=== PATIENT | female | born 1955 | race Caucasian/White ===

== ENCOUNTER 2020-05-05 11:53 | Inpatient (IN) ==
[2020-05-05] MEDS ORDERED: 0.9 % SODIUM CHLORIDE 1,000 ML IV ONE ×2 (12:21→13:16)
--- NOTE | 2020-05-05 13:17 | Emergency Department Note ---
HPI General Chief complaint: Blood Pressure Problem Stated complaint: hypotensive Time Seen by Provider: 05/05/20 12:58 Source: EMS Mode of arrival: ambulatory Limitations: no limitations History of Present Illness HPI Narrative: Narrative: Was in the office of Miranda Ramone when blood pressure seem to be quite low in the 90s and then when she stood in the 60s. Patient reports that her blood pressures have been low in the past and she was even given a medicine to help keep them up. Because they went so low she was transported by EMS here. They got an IV shortly before arriving. Her heart rate has been in the 80s. She has had poor p.o. intake for 4 days. She kept drinking some water. She has felt a little bit lightheaded. She has been on some diuretics. She denies diarrhea or constipation or hematochezia. She has a little bit of troubles urinating the past 3 days. No fevers chills or sweats. Related Data Home Medications Medication Instructions Recorded Confirmed naloxone 4 mg/actuation nasal spray 1 spray INTRANASAL Q2-3M PRN 04/02/19 05/05/20 trazodone 50 mg tablet 50 mg PO QHS 04/02/19 05/05/20 triamcinolone acetonide 0.05 % 1 applic TOPICAL BID PRN 04/02/19 05/05/20 topical ointment Previous Rx's Medication Instructions Recorded furosemide 20 mg tablet 20 mg PO QDAY #90 tab 12/14/15 lidocaine HCl 5 ml PO Q6HP PRN #120 ml 06/02/16 pantoprazole 40 mg tablet,delayed 40 mg PO QDAY #90 tab 06/02/19 release spironolactone 25 mg tablet 25 mg PO QDAY #90 tab 06/02/19 lisinopril 40 mg tablet See Rx Instructions .ROUTE 08/17/19 .COMPLEX #90 tablet metformin 500 mg tablet 500 mg PO QDAY #90 tab 08/23/19 carvedilol 25 mg tablet 25 mg PO BID #180 tab 08/30/19 naratriptan 2.5 mg tablet 2.5 mg PO ONCE PRN #15 tab 12/23/19 diclofenac sodium 1 % topical gel 2 g TOPICAL QID #100 g 12/28/19 fluticasone propionate 50 2 spray INTRANASAL QDAY #15.8 ml 09/15/20 mcg/actuation nasal spray,suspension chlorthalidone 25 mg tablet 12.5 mg PO QDAY #45 tab 02/10/20 levothyroxine 25 mcg tablet 25 mcg PO QDAY #90 tab 02/24/20 nortriptyline 10 mg capsule 10 mg PO QDAY #90 cap 02/24/20 rosuvastatin 10 mg tablet See Rx Instructions .ROUTE 02/24/20 .COMPLEX #90 tablet methocarbamol 750 mg tablet 750 mg PO TID PRN #90 tab 03/14/20 hydrocodone 10 mg-acetaminophen 1 tab PO Q6H PRN 30 Days #120 tab 04/10/20 325 mg tablet methadone 10 mg tablet 5 mg PO TID #75 tab 04/10/20 pregabalin 25 mg capsule 25 mg PO BID #60 cap 04/10/20 Allergies Allergy/AdvReac Type Severity Reaction Status Date / Time Penicillins Allergy Unknown Unconscious Verified 05/05/20 10:14 scallops Allergy Unknown Unknown Verified 05/05/20 10:14 Pork Allergy Unknown Diarrhea Uncoded 12/28/19 10:57 Review of Systems ROS ROS Narrative: Narrative: No blurry vision sore throat runny nose chest pain cough shortness of breath abdominal pain rashes lesions headaches. Has had some lightheaded dizziness no anxiety or depression. Has felt fatigued and tired. No heat or cold intolerance easy bleeding or easy bruising. She reports that she was told she was diabetic and placed on Metformin but stopped taking it and did not seem to need it and not sure that she truly is diabetic Does have peripheral neuropathy for which she had been taking gabapentin but it was not doing much and so she went to [facility]. She is currently taking this but she reports that is not doing that much good for her. Is on chronic narcotics including methadone. She reports that this is due to whole body achiness that she relates to chemotherapy. [facility] Narrative Patient History Narrative: Narrative: DENIES: CVA, TIA, anxiety, depression. Medical/Surgical/Family History All Active Problems (Updated 05/05/20 @ 17:48 by Mor Ann DO) Hypotension (Acute) Acute on chronic kidney failure (Acute) Dizziness (Acute) Elevated serum globulin level (Acute) Hypotension (Acute) Elevated liver enzymes (Acute) Hypothyroidism (Chronic) Renal failure (Chronic) Anxiety (Chronic) Headache (Chronic) Hypotension (Chronic) Physical exam (Chronic) Osteopenia (Chronic) Lumbar back pain (Chronic) Peripheral neuropathy (Chronic) Fibromyalgia (Chronic) Allergic rhinitis (Chronic) Dermatitis (Chronic) Cervical radiculopathy (Chronic) Sinusitis (Chronic) Pharyngitis (Chronic) Recurrent sinusitis (Chronic) Chronic pain with drug dependence (Chronic) Fibromyalgia affecting multiple sites (Chronic) Mitral regurgitation (Chronic 07/28/12) Hypertension, essential (Chronic) Hyperlipidemia (Chronic) Dysmetabolic syndrome X (Chronic) Diabetes mellitus, type II (Chronic) Depressive disorder (Chronic) Congestive heart failure (Chronic) Chronic pain syndrome (Chronic) Cardiomyopathy (Chronic) Personal history of breast cancer (Chronic) Dao's esophagus (Chronic) Medical History (Updated 05/05/20 @ 17:48 by Mor Ann DO) Allergic rhinitis (Chronic) Anxiety (Chronic) Dao's esophagus (Chronic) Cardiomyopathy (Chronic) secondary cardiomyopathy, unspecified Cervical radiculopathy (Chronic) Chronic pain syndrome (Chronic) Congestive heart failure (Chronic) Depressive disorder (Chronic) Dermatitis (Chronic) Diabetes mellitus, type II (Chronic) Dysmetabolic syndrome X (Chronic) Fibromyalgia (Chronic) Fracture of ankle, closed (Resolved) 01/2013 Headache (Chronic) Hyperlipidemia (Chronic) Hypertension, essential (Chronic) Hypotension (Chronic) Hypothyroidism (Chronic) Lumbar back pain (Chronic) Mitral regurgitation (Chronic 07/28/12) Mild Nausea (Resolved) POSSIBLY RELATED TO [place] Normal endoscopy (Acute) Osteopenia (Chronic) Peripheral neuropathy (Chronic) Personal history of breast cancer (Chronic) (12/09/13-Dr Carpenter) Pharyngitis (Chronic) Physical exam (Chronic) Recurrent sinusitis (Chronic) Renal failure (Chronic) Shortness of breath (Resolved) Sinusitis (Chronic) Vomiting (Resolved) POSSIBLY RELATED TO [place] Surgical History History of breast surgery (Resolved) LUMPECTOMY History of chemotherapy (Resolved) (12/09/13-Dr Carpenter) History of hysterectomy (Resolved) 1994 Due to fibroids History of radiation therapy (Resolved) (12/09/13-Dr Carpenter) Status post biopsy of skin (Resolved 09/17/13) Left Lower Extremity: Vesicular dermatitis with lichenoid inflammation Family History Malignant neoplasm of ovary Cousin Resulted in Essential hypertension Unknown Nonruptured cerebral aneurysm unknown Cardiac disease Unknown Glaucoma Unknown Social History Smoking Status: Former smoker Alcohol Intake Frequency: does not drink Substance Use: does not use (Including no marijuana) Exam Narrative Narrative: Narrative: General Limitations: no limitations General appearance: Present alert, in no apparent distress, nontoxic and other (Seems quite appropriately animated.) Head Head: Present atraumatic and normocephalic Eye Eye: Present normal appearance, PERRL and EOMI ENT ENT: Present normal oropharynx and mucous membranes moist Neck Neck: Present trachea midline; Absent lymphadenopathy and thyromegaly Chest Chest: Present symmetric chest wall rise Respiratory Respiratory: Present normal lung sounds bilaterally; Absent respiratory distress, rales/crackles, wheezes, stridor, accessory muscle use and prolonged expiratory phase Cardiovascular Cardiovascular: Present regular rate and normal rhythm; Absent systolic murmur and diastolic murmur Adbominal Abdominal: Present soft; Absent distention, tenderness, guarding, rebound, rigidity, organomegaly and mass Extremities Extremities: Absent pedal edema, pretibial edema, calf tenderness and cyanosis Back Back: Absent CVA tenderness (R), CVA tenderness (L) and spinous process tenderness Neurological Neurological: Present alert and oriented X3 Psychiatric Psychiatric: Present normal affect, polite and pleasant; Absent depressed, agitated, anxious and poor eye contact Skin Skin: Present warm (WNL) and dry; Absent cyanosis and pallor Course Vital Signs Vital signs: Vital Signs Temperature 97.8 F 05/05/20 11:56 Pulse Rate 80 05/05/20 11:56 Respiratory Rate 16 05/05/20 11:56 Blood Pressure 80/51 05/05/20 11:56 Pulse Oximetry (%) 95 05/05/20 11:56 Temperature 97.8 F 05/05/20 11:56 Pulse Rate 90 05/05/20 16:31 Respiratory Rate 17 05/05/20 16:46 Blood Pressure 107/61 05/05/20 16:46 Pulse Oximetry (%) 96 05/05/20 16:31 [facility] MDM Narrative Medical decision making narrative: Narrative: 11:59 AM - hypotension with possible history of hypotension. Possible history of a cardiomyopathy suggested with or caused by chemotherapy. She appears to be on 3 diuretics according to her medication list and blood pressure medicine as well yet was quite hypotensive today. Her symptoms are limited and she looks and acts well and is quite interactive even at low blood pressures. We will do multiple labs, EKG, work-up. 3:18 PM - labs include an elevated white count of 17.9. She does have new hemoglobin and hematocrit decreases that have gone from 11.47 days ago to 9.6 and hematocrit from 34.6-28.3. This could be somewhat delutional based on her drinking she says a fair amount of water particularly with her sodium being a little bit low at 131 and potassium 3.1, however she also has the newly elevated creatinine to 3.0 with a BUN of 73 and was 46 and 1.8. Glucose is elevated at 248. Calcium a little low at 8.1 but so are her proteins with an albumin of 2.9 and globulin 4.0. Total protein is normal at 6.9. C-reactive protein significantly elevated at 8.50. Lactic acid 1.6. Rectal exam did not reveal any mass or lesion or abnormalities or redness compatible with blood. Negative Hemoccult. Patient also reports that she lives alone. She does not have family in the area. She does have a boyfriend who does not live too far away. She does have some fox on her right arm that are related to putting fuel in a wood-burning stove which is the only thing she has for heating her home and she is but concerned about this. Blood pressures (systolic) now in the 94-100 range most of the time. Because of her significant elevation of her creatinine, with the above-mentioned hypotension, it seems most reasonable for her to be admitted. Spoke with Dr. Christine elaine who is willing to accept her care. Lab Data Result diagrams: 05/05/20 13:21 05/05/20 13:21 Labs: Lab Results 05/05/20 05/05/20 05/05/20 Range/Units 13:21 13:21 13:21 WBC 17.9 H (4.5-11.0) K/mcL RBC 2.85 L (4.00-5.20) M/mcL Hgb 9.6 L (12.0-15.0) g/dL Hct 28.3 L (36.0-48.0) % MCV 99.3 (80.0-100.0) fL MCH 33.7 (26.0-34.0) pg MCHC 33.9 (31.0-36.0) g/dL RDW 15.2 H (11.5-14.5) % Plt Count 216 (140-440) K/mcL MPV 11.1 H (7.4-10.4) fL Neut % (Auto) 74.4 (38.0-78.0) % Lymph % (Auto) 12.8 L (15.0-49.0) % [place] % (Auto) 12.3 H (1.0-12.0) % Eos % (Auto) 0.1 (0.0-7.0) % Baso % (Auto) 0.4 (0.0-2.0) % Lymph # (Auto) 2.29 (1.50-4.80) K/mcL [place] # (Auto) 2.21 H (0.10-0.90) K/mcL Eos # (Auto) 0.01 (0.00-0.70) K/mcL Baso # (Auto) 0.08 (0.00-0.20) K/mcL Absolute Neutrophils 13.33 H (1.80-8.00) K/mcL Sodium 131 L (133-145) mmol/L Potassium 3.1 L (3.3-5.1) mmol/L Chloride 96 (96-108) mmol/L Carbon Dioxide 17 L (22-30) mmol/L Anion Gap 18.0 H (8.0-16.0) BUN 73 H (8-23) mg/dL Creatinine 3.0 H (0.6-1.1) mg/dL GFR Calculation 15 Glucose 248 H (70-105) mg/dL Calcium 8.1 L (8.6-10.4) mg/dL Total Bilirubin 0.5 (0.1-1.0) mg/dL AST 32 H (<32) U/L ALT 32 (<40) U/L Alkaline Phosphatase 54 (39-117) U/L Troponin T < 0.01 (<0.03) ng/mL C-Reactive Protein 8.50 H (0.03-0.80) mg/dL Total Protein 6.9 (5.9-8.4) gm/dL Albumin 2.9 L (3.2-5.2) gm/dL Globulin 4.0 H (2.2-3.7) gm/dL Albumin/Globulin Ratio 0.7 L (1.0-2.3) Urine Color Urine Appearance (Clear) Urine pH (5.0-9.0) Ur Specific [place] (1.000-1.035) Urine Protein (Negative) mg/dL Urine Glucose (UA) (Negative) mg/dL Urine Ketones (Negative) mg/dL Urine Occult Blood (Negative) mg/dL Urine Nitrate (Negative) Urine Bilirubin (Negative) mg/dL Urine Urobilinogen mg/dL Ur Leukocyte Esterase (Negative) /ug Urine RBC (0-3) /hpf Urine WBC (0-4) /hpf Ur Squamous Epith Cells (0-4) /hpf Urine Bacteria (0) /hpf Hyaline Casts (0-2) /lph Urine Mucus (None) /hpf Ur Culture Indicated? 05/05/20 Range/Units 14:15 WBC (4.5-11.0) K/mcL RBC (4.00-5.20) M/mcL Hgb (12.0-15.0) g/dL Hct (36.0-48.0) % MCV (80.0-100.0) fL MCH (26.0-34.0) pg MCHC (31.0-36.0) g/dL RDW (11.5-14.5) % Plt Count (140-440) K/mcL MPV (7.4-10.4) fL Neut % (Auto) (38.0-78.0) % Lymph % (Auto) (15.0-49.0) % [place] % (Auto) (1.0-12.0) % Eos % (Auto) (0.0-7.0) % Baso % (Auto) (0.0-2.0) % Lymph # (Auto) (1.50-4.80) K/mcL [place] # (Auto) (0.10-0.90) K/mcL Eos # (Auto) (0.00-0.70) K/mcL Baso # (Auto) (0.00-0.20) K/mcL Absolute Neutrophils (1.80-8.00) K/mcL Sodium (133-145) mmol/L Potassium (3.3-5.1) mmol/L Chloride (96-108) mmol/L Carbon Dioxide (22-30) mmol/L Anion Gap (8.0-16.0) BUN (8-23) mg/dL Creatinine (0.6-1.1) mg/dL GFR Calculation Glucose (70-105) mg/dL Calcium (8.6-10.4) mg/dL Total Bilirubin (0.1-1.0) mg/dL AST (<32) U/L ALT (<40) U/L Alkaline Phosphatase (39-117) U/L Troponin T (<0.03) ng/mL C-Reactive Protein (0.03-0.80) mg/dL Total Protein (5.9-8.4) gm/dL Albumin (3.2-5.2) gm/dL Globulin (2.2-3.7) gm/dL Albumin/Globulin Ratio (1.0-2.3) Urine Color Yellow Urine Appearance Hazy A (Clear) Urine pH 5.0 (5.0-9.0) Ur Specific [place] 1.006 (1.000-1.035) Urine Protein 30 A (Negative) mg/dL Urine Glucose (UA) Negative (Negative) mg/dL Urine Ketones Negative (Negative) mg/dL Urine Occult Blood 0.03 (Negative) mg/dL Urine Nitrate Negative (Negative) Urine Bilirubin Negative (Negative) mg/dL Urine Urobilinogen Negative mg/dL Ur Leukocyte Esterase 500 A (Negative) /ug Urine RBC 1 (0-3) /hpf Urine WBC 147 H (0-4) /hpf Ur Squamous Epith Cells 0 (0-4) /hpf Urine Bacteria None (0) /hpf Hyaline Casts 7 H (0-2) /lph Urine Mucus Few A (None) /hpf Ur Culture Indicated? yes Discharge Plan Patient/Caregiver Discharge Instructions Pt seen by MEDICAL INSURANCE BILLER/PA only: No Clinical Impression: Hypotension, Acute on chronic kidney failure Patient Disposition: Xfer As Outpt/Obs ([facility]) Follow up with: Mey Pack ARNP [Primary Care Provider] - Prescriptions: No Action fluticasone propionate [Flonase Allergy Relief] 50 mcg/actuation spray,suspension 2 spray INTRANASAL QDAY Qty: 15.8 RF: 5 diclofenac sodium [Voltaren] 1 % gel 2 g TOPICAL QID Qty: 100 RF: 5 pregabalin [Lyrica] 25 mg capsule 25 mg PO BID Qty: 60 RF: 2 hydrocodone-acetaminophen 10-325 mg tablet 1 tab PO Q6H PRN (Reason: pain) 30 Days Qty: 120 RF: 0 methadone 10 mg tablet 5 mg PO TID Qty: 75 RF: 0 spironolactone 25 mg tablet 25 mg PO QDAY Qty: 90 RF: 4 pantoprazole 40 mg tablet,delayed release (DR/EC) 40 mg PO QDAY Qty: 90 RF: 4 lisinopril 40 mg tablet See Rx Instructions .ROUTE .COMPLEX Qty: 90 RF: 4 metformin 500 mg tablet 500 mg PO QDAY Qty: 90 RF: 3 carvedilol 25 mg tablet 25 mg PO BID Qty: 180 RF: 2 naratriptan [Amerge] 2.5 mg tablet 2.5 mg PO ONCE PRN (Reason: migraine headache) Qty: 15 RF: 2 chlorthalidone 25 mg tablet 12.5 mg PO QDAY Qty: 45 RF: 0 levothyroxine 25 mcg tablet 25 mcg PO QDAY Qty: 90 RF: 0 nortriptyline 10 mg capsule 10 mg PO QDAY Qty: 90 RF: 2 rosuvastatin 10 mg tablet See Rx Instructions .ROUTE .COMPLEX Qty: 90 RF: 2 methocarbamol 750 mg tablet 750 mg PO TID PRN (Reason: muscle spasm) Qty: 90 RF: 2 furosemide 20 mg tablet 20 mg PO QDAY Qty: 90 RF: 3 trazodone 50 mg tablet 50 mg PO QHS RF: 0 triamcinolone acetonide 0.05 % ointment 1 applic TOPICAL BID PRN (Reason: Rash) RF: 0 Narcan 4 mg/actuation spray,non-aerosol 1 spray INTRANASAL Q2-3M PRN (Reason: overmedicated) RF: 0 lidocaine HCl 1 ML solution 5 ml PO Q6HP PRN (Reason: Pain) Qty: 120 RF: 0
[2020-05-05 14:33] LABS: Basophils # (Auto) 0.08 K/mcL (0.00-0.20); Basophils % (Auto) 0.4 % (0.0-2.0); Eosinophils # (Auto) 0.01 K/mcL (0.00-0.70); Eosinophils % (Auto) 0.1 % (0.0-7.0); Hematocrit 28.3 % (36.0-48.0); Hemoglobin 9.6 g/dL (12.0-15.0); Lymphocytes # (Auto) 2.29 K/mcL (1.50-4.80); Lymphocytes % (Auto) 12.8 % (15.0-49.0); Mean Cell Volume 99.3 fL (80.0-100.0); Mean Corpuscular HGB Conc 33.9 g/dL (31.0-36.0); Mean Platelet Volume 11.1 fL (7.4-10.4); Monocytes # (Auto) 2.21 K/mcL (0.10-0.90); Monocytes % (Auto) 12.3 % (1.0-12.0); Neutrophils % (Auto) 74.4 % (38.0-78.0); Platelet Count 216 K/mcL (140-440); RBC 2.85 M/mcL (4.00-5.20); Red Cell Distribution Width 15.2 % (11.5-14.5); WBC 17.9 K/mcL (4.5-11.0)
[2020-05-05 15:02] LABS: ALT/SGPT 32 U/L (<40); AST/SGOT 32 U/L (<32); Albumin 2.9 gm/dL (3.2-5.2); Albumin/Globulin Ratio 0.7 (1.0-2.3); Alkaline Phosphatase 54 U/L (39-117); Bilirubin,Total 0.5 mg/dL (0.1-1.0); Blood Urea Nitrogen 73 mg/dL (8-23); Calcium 8.1 mg/dL (8.6-10.4); Carbon Dioxide 17 mmol/L (22-30); Chloride 96 mmol/L (96-108); Glomerular Filtration Rate 15; Glucose 248 mg/dL (70-105)
[2020-05-05 15:54] LABS: Appearance,Urine HAZY (Clear); Bilirubin,Urine Negative (Negative); Color,Urine YELLOW; Culture Indicated,Urine yes; Glucose,Urine (UA) Negative (Negative); Ketones,Urine Negative (Negative); Leukocyte Esterase,Urine 500 /ug (Negative); Mucus,Urine FEW /hpf; Nitrate,Urine Negative (Negative); Protein,Urine 30 mg/dL (Negative); Specific Gravity,Urine 1.006 (1.000-1.035); Urine Blood 0.03 mg/dL (Negative); Urine Hyaline Cast 7 /lph (0-2); Urine RBC 1 /hpf (0-3); Urine Squamous Epithelial Cell 0 /hpf (0-4); Urine WBC 147 /hpf (0-4); Urobilinogen,Urine Negative
--- NOTE | 2020-05-05 17:07 | Internal Med History&Physical ---
HPI History of Present Illness Patient information: Note initiated : 05/05/20 at 4:59 pm Service Date, if different from initiated Date: [] Patient: Dylan Martin a 65 y/o F admitted on for Hypotensive. Chief Complaint: [] History of present illness: Ms. Martin is a 65 year old F Presents the ED from her primary care's office for hypotension and lightheadedness. Patient states about 4 days ago she had a decreased appetite and has hardly been eating anything and drinking mostly just water. She is on several blood pressure medications and diuretics. Not entirely sure she is taking these but what is listed on home medications Coreg lisinopril chlorthalidone furosemide and spironolactone. She complains of lightheadedness. She did have some nausea as well. No diarrhea. patient denies any recent illnesses. He denies any fevers or chills. Denies any coughing or shortness of breath. Her urine is dark and was malodorous but did not necessarily have any distance comfort upon urination. Found be hypotensive in the office and sent into the ED. Where she was also was found to be mildly hypotensive. With an elevated creatinine. Urinalysis possibly consistent with UTI. Did have a leukocytosis but was afebrile. chest x-ray pending Review of Systems: Pertinent positives as above denies headache/fever/vomiting/chills/chest or abdominal pain/cough/dyspnea/diarrhea. Remaining 10 point review of system reviewed negative PFSH PFSH All Active Problems (Updated 05/05/20 @ 10:46 by TOMMY Desai) Dizziness (Acute) Elevated serum globulin level (Acute) Hypotension (Acute) Elevated liver enzymes (Acute) Hypothyroidism (Chronic) Renal failure (Chronic) Anxiety (Chronic) Headache (Chronic) Hypotension (Chronic) Physical exam (Chronic) Osteopenia (Chronic) Lumbar back pain (Chronic) Peripheral neuropathy (Chronic) Fibromyalgia (Chronic) Allergic rhinitis (Chronic) Dermatitis (Chronic) Cervical radiculopathy (Chronic) Sinusitis (Chronic) Pharyngitis (Chronic) Recurrent sinusitis (Chronic) Chronic pain with drug dependence (Chronic) Fibromyalgia affecting multiple sites (Chronic) Mitral regurgitation (Chronic 07/28/12) Hypertension, essential (Chronic) Hyperlipidemia (Chronic) Dysmetabolic syndrome X (Chronic) Diabetes mellitus, type II (Chronic) Depressive disorder (Chronic) Congestive heart failure (Chronic) Chronic pain syndrome (Chronic) Cardiomyopathy (Chronic) Personal history of breast cancer (Chronic) Dao's esophagus (Chronic) Medical History (Updated 05/05/20 @ 10:46 by TOMMY Desai) Allergic rhinitis (Chronic) Anxiety (Chronic) Dao's esophagus (Chronic) Cardiomyopathy (Chronic) secondary cardiomyopathy, unspecified Cervical radiculopathy (Chronic) Chronic pain syndrome (Chronic) Congestive heart failure (Chronic) Depressive disorder (Chronic) Dermatitis (Chronic) Diabetes mellitus, type II (Chronic) Dysmetabolic syndrome X (Chronic) Fibromyalgia (Chronic) Fracture of ankle, closed (Resolved) 01/2013 Headache (Chronic) Hyperlipidemia (Chronic) Hypertension, essential (Chronic) Hypotension (Chronic) Hypothyroidism (Chronic) Lumbar back pain (Chronic) Mitral regurgitation (Chronic 07/28/12) Mild Nausea (Resolved) POSSIBLY RELATED TO [place] Normal endoscopy (Acute) Osteopenia (Chronic) Peripheral neuropathy (Chronic) Personal history of breast cancer (Chronic) (12/09/13-Dr Carpenter) Pharyngitis (Chronic) Physical exam (Chronic) Recurrent sinusitis (Chronic) Renal failure (Chronic) Shortness of breath (Resolved) Sinusitis (Chronic) Vomiting (Resolved) POSSIBLY RELATED TO [place] Surgical History History of breast surgery (Resolved) LUMPECTOMY History of chemotherapy (Resolved) (12/09/13-Dr Carpenter) History of hysterectomy (Resolved) 1994 Due to fibroids History of radiation therapy (Resolved) (12/09/13-Dr Carpenter) Status post biopsy of skin (Resolved 09/17/13) Left Lower Extremity: Vesicular dermatitis with lichenoid inflammation Family History unknown Nonruptured cerebral aneurysm Unknown Cardiac disease Essential hypertension Glaucoma Cousin Malignant neoplasm of ovary Resulted in Social History marital status: single occupational status: retired and disabled smoking status: Former smoker alcohol intake frequency: a few times a week substance use type: does not use MEDS/ALLERGIES Home Medications and Allergies Home Medications Medication Instructions Recorded Confirmed Type furosemide 20 mg tablet 20 mg PO QDAY #90 tab 12/14/15 05/05/20 Rx lidocaine HCl 5 ml PO Q6HP PRN #120 ml 06/02/16 05/05/20 Rx naloxone 4 mg/actuation nasal spray 1 spray INTRANASAL Q2-3M PRN 04/02/19 05/05/20 History trazodone 50 mg tablet 50 mg PO QHS 04/02/19 05/05/20 History triamcinolone acetonide 0.05 % 1 applic TOPICAL BID PRN 04/02/19 05/05/20 History topical ointment pantoprazole 40 mg tablet,delayed 40 mg PO QDAY #90 tab 06/02/19 05/05/20 Rx release spironolactone 25 mg tablet 25 mg PO QDAY #90 tab 06/02/19 05/05/20 Rx lisinopril 40 mg tablet See Rx Instructions .ROUTE 08/17/19 05/05/20 Rx .COMPLEX #90 tablet metformin 500 mg tablet 500 mg PO QDAY #90 tab 08/23/19 05/05/20 Rx carvedilol 25 mg tablet 25 mg PO BID #180 tab 08/30/19 05/05/20 Rx naratriptan 2.5 mg tablet 2.5 mg PO ONCE PRN #15 tab 12/23/19 05/05/20 Rx diclofenac sodium 1 % topical gel 2 g TOPICAL QID #100 g 12/28/19 05/05/20 Rx fluticasone propionate 50 2 spray INTRANASAL QDAY #15.8 ml 12/28/19 05/05/20 Rx mcg/actuation nasal spray,suspension chlorthalidone 25 mg tablet 12.5 mg PO QDAY #45 tab 02/10/20 05/05/20 Rx levothyroxine 25 mcg tablet 25 mcg PO QDAY #90 tab 02/24/20 05/05/20 Rx nortriptyline 10 mg capsule 10 mg PO QDAY #90 cap 02/24/20 05/05/20 Rx rosuvastatin 10 mg tablet See Rx Instructions .ROUTE 02/24/20 05/05/20 Rx .COMPLEX #90 tablet methocarbamol 750 mg tablet 750 mg PO TID PRN #90 tab 03/14/20 05/05/20 Rx hydrocodone 10 mg-acetaminophen 1 tab PO Q6H PRN 30 Days #120 tab 04/10/20 05/05/20 Rx 325 mg tablet methadone 10 mg tablet 5 mg PO TID #75 tab 04/10/20 05/05/20 Rx pregabalin 25 mg capsule 25 mg PO BID #60 cap 04/10/20 05/05/20 Rx Allergies Allergy/AdvReac Type Severity Reaction Status Date / Time Penicillins Allergy Unknown Unconscious Verified 05/05/20 10:14 scallops Allergy Unknown Unknown Verified 05/05/20 10:14 Pork Allergy Unknown Diarrhea Uncoded 12/28/19 10:57 EXAM Constitutional Vitals: Temp Pulse Resp BP Pulse Ox 97.8 F 90 15 109/70 99 05/05/20 11:56 05/05/20 16:30 05/05/20 16:30 05/05/20 16:30 05/05/20 16:30 Exam: General: Alert, Awake, No acute Distress, obese Eyes/N/T: EOMI, PERRL, dry MM Head/Neck: neck supple, normocephalic atraumatic CV: RRR, No murmurs, normal s1/s2 Pulm: Clear b/l, no wheezing/rhonchi/rales Abd: soft, nontender, +BS x4 Ext: no clubbing/cyanosis/edema Neuro: Alert, no focal deficits, moves all extremities, CN 2-12 grossly intact, symmetrical strength b/l upper/lower, sensations intact b/l upper/lower Skin: warm/dry DATA Data Completed and Pending Labs: Labs from last 24 hours 05/05/20 05/05/20 05/05/20 14:15 13:21 13:21 WBC RBC Hgb Hct MCV MCH MCHC RDW Plt Count MPV Neut % (Auto) Lymph % (Auto) [place] % (Auto) Eos % (Auto) Baso % (Auto) Lymph # (Auto) [place] # (Auto) Eos # (Auto) Baso # (Auto) Absolute Neutrophils Sodium 131 L Potassium 3.1 L Chloride 96 Carbon Dioxide 17 L Anion Gap 18.0 H BUN 73 H Creatinine 3.0 H GFR Calculation 15 Glucose 248 H Calcium 8.1 L Total Bilirubin 0.5 AST 32 H ALT 32 Alkaline Phosphatase 54 Troponin T < 0.01 C-Reactive Protein 8.50 H Total Protein 6.9 Albumin 2.9 L Globulin 4.0 H Albumin/Globulin Ratio 0.7 L Urine Color Yellow Urine Appearance Hazy A Urine pH 5.0 Ur Specific [place] 1.006 Urine Protein 30 A Urine Glucose (UA) Negative Urine Ketones Negative Urine Occult Blood 0.03 Urine Nitrate Negative Urine Bilirubin Negative Urine Urobilinogen Negative Ur Leukocyte Esterase 500 A Urine RBC 1 Urine WBC 147 H Ur Squamous Epith Cells 0 Urine Bacteria None Hyaline Casts 7 H Urine Mucus Few A Ur Culture Indicated? yes 05/05/20 13:21 WBC 17.9 H RBC 2.85 L Hgb 9.6 L Hct 28.3 L MCV 99.3 MCH 33.7 MCHC 33.9 RDW 15.2 H Plt Count 216 MPV 11.1 H Neut % (Auto) 74.4 Lymph % (Auto) 12.8 L [place] % (Auto) 12.3 H Eos % (Auto) 0.1 Baso % (Auto) 0.4 Lymph # (Auto) 2.29 [place] # (Auto) 2.21 H Eos # (Auto) 0.01 Baso # (Auto) 0.08 Absolute Neutrophils 13.33 H Sodium Potassium Chloride Carbon Dioxide Anion Gap BUN Creatinine GFR Calculation Glucose Calcium Total Bilirubin AST ALT Alkaline Phosphatase Troponin T C-Reactive Protein Total Protein Albumin Globulin Albumin/Globulin Ratio Urine Color Urine Appearance Urine pH Ur Specific [place] Urine Protein Urine Glucose (UA) Urine Ketones Urine Occult Blood Urine Nitrate Urine Bilirubin Urine Urobilinogen Ur Leukocyte Esterase Urine RBC Urine WBC Ur Squamous Epith Cells Urine Bacteria Hyaline Casts Urine Mucus Ur Culture Indicated? A/P Narrative A/P Narrative: A: *LINA on CKD III: possible ATN from hypotension *Hypotension: 2/2 medications and poor oral intake *AG Met Acidosis: 2/2 above *Hyponatremia/hypokalemia: Secondary to volume depletion / diuretic's *Volume depletion: *Leukocytosis: Reactive versus infectious possibly source *?UTI: *h/o Grade I diastolic cardiac dysfunction with EF 47% 2018: *DM: *HTN/HLD: *Pain: On methadone and [place] *Hypothyroidism: *GERD: * P: -IVF -monitor UOP, i/o's -Monitor electrolytes and replace as needed -Chest x-ray pending; Rocephin pending UC -Hold home metformin, SSI -Hold BP meds and diuretics - - -PT /OT -ppx: Heparin/home ppi full code Time Spent With Patient Time: Total time spent is greater than 50% in coordination of care (as documented) at patient's floor/unit and/or counseling patient:
--- NOTE | 2020-05-05 17:18 | XRay Report ---
HISTORY: Leukocytosis, hypotension, former smoker FINDINGS: Right diaphragm is mildly elevated. This is of undetermined etiology. The lungs are clear. The heart size and pulmonary vasculature are normal. There are multiple surgical clips along the right lateral chest wall and in the right breast. Comparison with the prior exam from 05/29/13 shows the elevation of the right diaphragm has increased but was present at that time. IMPRESSION: No acute abnormality Interpreted and Authenticated by: Conor Meade 05/05/20
[2020-05-05] MEDS ORDERED: 0.9 % SODIUM CHLORIDE 1,000 ML IV SCH (18:35)
[2020-05-05] MEDS ORDERED: cefTRIAXone 1 GM in DEXTROSE 5% IN WATER 50 ML IV SCH (18:35)
[2020-05-05] MEDS ORDERED: IPRATROPIUM/ALBUTEROL 3 ML AMPUL.NEB NEB PRN (18:35)
[2020-05-05] MEDS ORDERED: DEXTROSE 31 GM ORAL.SUSP PO PRN (18:35)
[2020-05-05] MEDS ORDERED: POTASSIUM CHLORIDE 40 MEQ in DEXTROSE 5% IN WATER 500 ML IV PRN (18:35)
[2020-05-05] MEDS ORDERED: ONDANSETRON 4 MG/2 ML VIAL IV PRN (18:35)
[2020-05-05] MEDS ORDERED: DEXTROSE 50% 50 ML VIAL IV PRN (18:35)
[2020-05-05] MEDS ORDERED: SENNOSIDES 1 TABLET PO PRN (18:35)
[2020-05-05] MEDS ORDERED: NALOXONE INTRANASAL PRN (18:35)
[2020-05-05] MEDS ORDERED: POLYETHYLENE GLYCOL 3350 17 GM PACKET PO PRN (18:35)
[2020-05-05] MEDS ORDERED: METHOCARBAMOL 750 MG TABLET PO PRN (18:35)
[2020-05-05] MEDS ORDERED: POTASSIUM CHLORIDE 20 MEQ TABLET PO PRN (18:35)
[2020-05-05] MEDS ORDERED: LIDOCAINE VISCOUS 2% 1 ML SOLUTION PO PRN (18:35)
[2020-05-05] MEDS ORDERED: AMERGE 2.5 MG PO PRN (19:17)
[2020-05-05] MEDS: 0.9 % SODIUM CHLORIDE 10 ML SYRINGE IV SCH (19:40)
[2020-05-05] MEDS ORDERED: cefTRIAXone 1 GM VIAL ONE (20:13)
[2020-05-05] MEDS: METHADONE 5 MG TABLET PO SCH (20:31)
[2020-05-05] MEDS: DICLOFENAC TOPICAL GEL TOPICAL SCH (20:32)
[2020-05-05] MEDS: traZODone HCL 50 MG TABLET PO SCH (20:32)
[2020-05-05] MEDS: DOCUSATE SODIUM 100 MG CAPSULE PO SCH (20:32)
[2020-05-05] MEDS: PREGABALIN 25 MG CAPSULE PO SCH (20:32)
[2020-05-05] MEDS: HEPARIN 5,000 UNIT/ML VIAL SQ SCH (20:33)
[2020-05-05 20:47] LABS: Lymphocytes % 11 % (15-49); Monocytes % (Manual) 11 % (1-12); Platelet Estimate NORMAL (Normal); RBC Morphology NORMAL (Normal); Segmented Neutrophils % 78 % (38-78)
[2020-05-05] MEDS: INSULIN LISPRO 1 UNIT/0.01 ML UNIT SQ SCH (21:32)
[2020-05-06] MEDS: POTASSIUM CHLORIDE 20 MEQ TABLET PO PRN (01:06)
[2020-05-06] MEDS: 0.9 % SODIUM CHLORIDE 10 ML SYRINGE IV SCH ×3 (04:30→20:41)
[2020-05-06 07:20] LABS: Basophils % (Auto) 0.5 % (0.0-2.0); Eosinophils # (Auto) 0.03 K/mcL (0.00-0.70); Eosinophils % (Auto) 0.2 % (0.0-7.0); Hematocrit 29.4 % (36.0-48.0); Hemoglobin 9.8 g/dL (12.0-15.0); Lymphocytes % (Auto) 16.4 % (15.0-49.0); Mean Cell Volume 99.7 fL (80.0-100.0); Mean Corpuscular HGB Conc 33.3 g/dL (31.0-36.0); Mean Platelet Volume 10.8 fL (7.4-10.4); Monocytes % (Auto) 14.2 % (1.0-12.0); Neutrophils % (Auto) 68.7 % (38.0-78.0); Platelet Count 271 K/mcL (140-440); RBC 2.95 M/mcL (4.00-5.20); Red Cell Distribution Width 15.4 % (11.5-14.5); WBC 18.3 K/mcL (4.5-11.0)
[2020-05-06 07:31] LABS: ALT/SGPT 28 U/L (<40); AST/SGOT 28 U/L (<32); Albumin/Globulin Ratio 0.8 (1.0-2.3); Alkaline Phosphatase 57 U/L (39-117); Bilirubin,Direct 0.2 mg/dL (<0.3); Bilirubin,Total 0.5 mg/dL (0.1-1.0); Blood Urea Nitrogen 63 mg/dL (8-23); Calcium 8.4 mg/dL (8.6-10.4); Carbon Dioxide 17 mmol/L (22-30); Chloride 99 mmol/L (96-108); Globulin 3.9 gm/dL (2.2-3.7); Glomerular Filtration Rate 20; Glucose 150 mg/dL (70-105); Lactate Dehydrogenase 166 U/L (135-225); Phosphorous 3.6 mg/dL (2.5-4.5); Triglycerides 93 mg/dL (<150); Uric Acid 7.2 mg/dL (2.5-8.0)
[2020-05-06] MEDS: INSULIN LISPRO 1 UNIT/0.01 ML UNIT SQ SCH ×4 (08:45→20:48)
[2020-05-06] MEDS ORDERED: MAGNESIUM SULFATE 2 GM/50 ML BAG IV ONE (08:49)
--- NOTE | 2020-05-06 08:53 | Internal Med Progress Note ---
SUBJECTIVE Subjective Patient information: Note initiated : 05/06/20 at 8:46 am Service Date, if different from initiated Date: [] Patient: Dylan Martin a 65 y/o F admitted on 05/05/20 for Hypotensive. Chief Complaint: [] Interval history: History of present illness: Ms. Martin is a 65 year old F Presents the ED from her primary care's office for hypotension and lightheadedness. Patient states about 4 days ago she had a decreased appetite and has hardly been eating anything and drinking mostly just water. She is on several blood pressure medications and diuretics. Not entirely sure she is taking these but what is listed on home medications Coreg lisinopril chlorthalidone furosemide and spironolactone. She complains of lightheadedness. She did have some nausea as well. No diarrhea. patient denies any recent illnesses. He denies any fevers or chills. Denies any coughing or shortness of breath. Her urine is dark and was malodorous but did not necessarily have any distance comfort upon urination. Found be hypotensive in the office and sent into the ED. Where she was also was found to be mildly hypotensive. With an elevated creatinine. Urinalysis possibly consistent with UTI. Did have a leukocytosis but was afebrile. chest x-ray pending 05/06 Feeling a little better today. No overnight event or new complaints. Blood pr essure stable although low normal. Persistent leukocytosis, waiting cultures. Creatinine improved. Low magnesium. Review of Systems: Occasional headache. Denies fever/chills/nausea/vomiting/chest or abdominal pain/cough/dyspnea/diarrhea. Otherwise see above. Constitutional Vitals: Vital Signs Temp Pulse Resp BP Pulse Ox 98.2 F 98 H 16 105/61 97 05/06/20 07:39 05/06/20 07:39 05/06/20 07:39 05/06/20 07:39 05/06/20 07:39 Period Temp Pulse Resp BP Sys/Loza Pulse Ox Last 24 Hr 97.8 F-98.5 F 31-101 11-18 80-117/51-77 94-100 Intake and Output 05/05/20 05/06/20 05/06/20 21:59 05:59 13:59 Intake Total 850 Output Total 650 150 Balance 200 -150 Weight 80.286 kg Intake & Output: Intake & Output 05/05/20 05/06/20 05/06/20 21:59 05:59 13:59 Intake Total 850 Output Total 650 150 Balance 200 -150 Weight 80.286 kg Intake: Oral 850 Output: Void Amount 650 150 Other: Urine Appearance Clear Clear Urine Color Bright Yellow Bright Yellow Urine Odor Normal # Voids 1 Exam: General: Alert, Awake, No acute Distress, obese Eyes/N/T: EOMI, Head/Neck: neck supple, CV: RRR, No murmurs, Pulm: Clear b/l, no wheezing/rhonchi/rales Abd: soft, nontender, +BS x4 Ext: no clubbing/cyanosis/edema Neuro: Alert, no focal deficits, moves all extremities, Skin: warm/dry OBJ DATA Labs CBC & Chem 7: 05/06/20 05:13 05/06/20 05:13 Labs: Abnormal Lab Results 05/06/20 05/06/20 05/06/20 05:13 05:13 05:13 WBC 18.3 H RBC 2.95 L Hgb 9.8 L Hct 29.4 L RDW 15.4 H MPV 10.8 H Lymph % (Auto) [place] % (Auto) 14.2 H [place] # (Auto) 2.60 H Lymphocytes % Absolute Neutrophils 12.56 H Sodium Potassium Carbon Dioxide 17 L Anion Gap 19.0 H BUN 63 H Creatinine 2.4 H Glucose 150 H Calcium 8.4 L Magnesium 1.1 L GGT 68 H AST C-Reactive Protein 11.60 H Albumin 3.0 L Globulin 3.9 H Albumin/Globulin Ratio 0.8 L Procalcitonin 1.07 H Urine Appearance Urine Protein Ur Leukocyte Esterase Urine WBC Hyaline Casts Urine Mucus 05/05/20 05/05/20 05/05/20 14:15 13:21 13:21 WBC RBC Hgb Hct RDW MPV Lymph % (Auto) [place] % (Auto) [place] # (Auto) Lymphocytes % 11 L Absolute Neutrophils Sodium Potassium Carbon Dioxide Anion Gap BUN Creatinine Glucose Calcium Magnesium GGT AST C-Reactive Protein Albumin Globulin Albumin/Globulin Ratio Procalcitonin 1.33 H Urine Appearance Hazy A Urine Protein 30 A Ur Leukocyte Esterase 500 A Urine WBC 147 H Hyaline Casts 7 H Urine Mucus Few A 05/05/20 05/05/20 13:21 13:21 WBC 17.9 H RBC 2.85 L Hgb 9.6 L Hct 28.3 L RDW 15.2 H MPV 11.1 H Lymph % (Auto) 12.8 L [place] % (Auto) 12.3 H [place] # (Auto) 2.21 H Lymphocytes % Absolute Neutrophils 13.33 H Sodium 131 L Potassium 3.1 L Carbon Dioxide 17 L Anion Gap 18.0 H BUN 73 H Creatinine 3.0 H Glucose 248 H Calcium 8.1 L Magnesium GGT AST 32 H C-Reactive Protein 8.50 H Albumin 2.9 L Globulin 4.0 H Albumin/Globulin Ratio 0.7 L Procalcitonin Urine Appearance Urine Protein Ur Leukocyte Esterase Urine WBC Hyaline Casts Urine Mucus Meds: Medications Acetaminophen (Tylenol) 650 mg PO Q6HP PRN PRN Reason: PAIN/FEVER > 101 Albuterol/Ipratropium (Duoneb) 3 ml NEB Q4HP PRN PRN Reason: Shortness Of Breath Atorvastatin Calcium (Lipitor) 20 mg PO DAILY [facility] Ceftriaxone Sodium (Rocephin) 1 gm IV DAILY [facility] Dextrose (Dextrose 50%) 0 ml IV UD PRN PRN Reason: Hypoglycemia Diagnostic Test (Pha) (Accu-Chek) 1 each FS ACHS [facility] Last Admin: 05/06/20 07:16 Dose: 1 each Documented by: Docusate Sodium (Colace) 100 mg PO BID [facility] Last Admin: 05/05/20 20:32 Dose: Not Given Documented by: Fluticasone Propionate (Flonase) 2 spray NS QDAY [facility] Glucose (Insta-Glucose) 15 gm PO PRN PRN PRN Reason: Hypoglycemia Heparin Sodium (Porcine) (Heparin) 5,000 unit SQ Q12 [facility] Last Admin: 05/05/20 20:33 Dose: 5,000 unit Documented by: Potassium Chloride 40 meq/ (Dextrose) 520 mls @ 130 mls/hr IV UD PRN PRN Reason: Potassium < 3 Magnesium Sulfate (Magnesium Sulfate) 2 gm in 50 mls @ 50 mls/hr IV UD PRN PRN Reason: Magnesium </= 1.6 Insulin Human Lispro (Humalog) 0 unit SQ ACHS [facility]; Protocol Last Admin: 05/05/20 21:32 Dose: 4 units Documented by: Levothyroxine Sodium (Synthroid) 25 mcg PO ACB [facility] Lidocaine HCl (Lidocaine Viscous 2%) 5 ml PO Q6HP PRN PRN Reason: Pain Methadone HCl (Dolophine) 5 mg PO TID [facility] Last Admin: 05/05/20 20:31 Dose: 5 mg Documented by: Methocarbamol (Robaxin) 750 mg PO TIDP PRN PRN Reason: muscle spasm Nortriptyline HCl (Pamelor) 10 mg PO QDAY [facility] Ondansetron HCl (Zofran) 4 mg IV Q4HP PRN PRN Reason: Nausea And Vomiting Pantoprazole Sodium (Protonix) 40 mg PO ACB [facility] Diclofenac Topical (Gel) 1 dose TOPICAL QID [facility] Last Admin: 05/05/20 20:32 Dose: Not Given Documented by: Amerge 2.5 Mg Tablet 1 dose PO DAILYP PRN PRN Reason: migraine headache Polyethylene Glycol (Miralax) 17 gm PO DAILYP PRN PRN Reason: Constipation Potassium Chloride (Kdur) 40 meq PO UD PRN PRN Reason: Potssium is 3-3.5 Last Admin: 05/06/20 01:06 Dose: 40 meq Documented by: Potassium Chloride (Kdur) 40 meq PO UD PRN PRN Reason: Potassium < 3 Pregabalin (Lyrica) 25 mg PO BID [facility] Last Admin: 05/05/20 20:32 Dose: 25 mg Documented by: Senna (Senokot) 2 tab PO DAILYP PRN PRN Reason: Constipation Sodium Chloride (Saline Flush) 10 ml IV Q8 [facility] Last Admin: 05/06/20 04:30 Dose: Not Given Documented by: Trazodone HCl (Desyrel) 50 mg PO QHS [facility] Last Admin: 05/05/20 20:32 Dose: 50 mg Documented by: A/P Narrative A/P Narrative: A: *LINA on CKD III: 2/2 meds/hypotension -improving *Hypotension: 2/2 medications (coreg/acei/?lasix/aldactone/chlorthalidone) and poor oral intake -stable *AG Met Acidosis: 2/2 above, resolved *Hyponatremia/hypokalemia/hypomag: Secondary to volume depletion / diuretic's -improved *Volume depletion: improved *Leukocytosis: Reactive versus infectious possibly source *UTI: *h/o Grade I diastolic cardiac dysfunction with EF 47% 2018: *DM: *HTN/HLD: *Pain: On methadone and [place] *Hypothyroidism: *GERD: * P: -IVF finish -monitor UOP, i/o's -Monitor electrolytes and replace as needed -Rocephin, pending UC -Hold home metformin, SSI -Hold BP meds and diuretics -clarify home meds - -PT /OT -ppx: Heparin/home ppi full code Time Spent With Patient Time: Total time spent is greater than 50% in coordination of care (as documented) at patient's floor/unit and/or counseling patient: QUALITY VTE Deep Vein Thrombosis/Pulmonary Embolism Present on Admission: No
[2020-05-06] MEDS: LEVOTHYROXINE 25 MCG TABLET PO SCH (09:02)
[2020-05-06] MEDS: METHADONE 5 MG TABLET PO SCH ×3 (09:02→20:40)
[2020-05-06] MEDS: PANTOPRAZOLE 40 MG TABLET PO SCH (09:02)
[2020-05-06] MEDS: DOCUSATE SODIUM 100 MG CAPSULE PO SCH ×3 (09:02→20:41)
[2020-05-06] MEDS: NORTRIPTYLINE 10 MG CAPSULE PO SCH (09:03)
[2020-05-06] MEDS: cefTRIAXone 1 GM VIAL IV SCH (09:03)
[2020-05-06] MEDS: PREGABALIN 25 MG CAPSULE PO SCH ×2 (09:03→20:41)
[2020-05-06] MEDS: HEPARIN 5,000 UNIT/ML VIAL SQ SCH ×2 (09:03→20:40)
[2020-05-06] MEDS: ATORVASTATIN 20 MG TABLET PO SCH (09:04)
[2020-05-06] MEDS: FLUTICASONE PROPIONATE SPRAY.NAS NS SCH (09:04)
[2020-05-06] MEDS: DICLOFENAC TOPICAL GEL TOPICAL SCH ×4 (09:04→20:41)
[2020-05-06] MEDS: MAGNESIUM SULFATE 2 GM/50 ML BAG IV PRN (09:07)
[2020-05-06] MEDS ORDERED: 0.9 % SODIUM CHLORIDE 250 ML IV ONE (09:45)
[2020-05-06] MEDS ORDERED: 0.9 % SODIUM CHLORIDE 1,000 ML IV ONE (13:15)
--- NOTE | 2020-05-06 13:36 | Internal Med Progress Note ---
SUBJECTIVE Subjective Patient information: Note initiated : 05/07/20 at 1:36 pm Service Date, if different from initiated Date: [] Patient: Dylan Martin a 65 y/o F admitted on 05/05/20 for Hypotensive. Chief Complaint: [] Interval history: History of present illness: Ms. Martin is a 65 year old F Presents the ED from her primary care's office for hypotension and lightheadedness. Patient states about 4 days ago she had a decreased appetite and has hardly been eating anything and drinking mostly just water. She is on several blood pressure medications and diuretics. Not entirely sure she is taking these but what is listed on home medications Coreg lisinopril chlorthalidone furosemide and spironolactone. She complains of lightheadedness. She did have some nausea as well. No diarrhea. patient denies any recent illnesses. He denies any fevers or chills. Denies any coughing or shortness of breath. Her urine is dark and was malodorous but did not necessarily have any distance comfort upon urination. Found be hypotensive in the office and sent into the ED. Where she was also was found to be mildly hypotensive. With an elevated creatinine. Urinalysis possibly consistent with UTI. Did have a leukocytosis but was afebrile. chest x-ray pending 05/06 Feeling a little better today. No overnight event or new complaints. Blood pr essure stable although low normal. Persistent leukocytosis, waiting cultures. Creatinine improved. Low magnesium. 05/07 Improving renal function, making urine, low potassium and magnesium. Feels much better. Blood pressure still low but asymptomatic. Review of Systems: Occasional headache. Denies fever/chills/nausea/vomiting/chest or abdominal pain/cough/dyspnea/diarrhea. Otherwise see above. Constitutional Vitals: Vital Signs Temp Pulse Resp BP Pulse Ox 97.8 F 92 H 14 85/51 93 05/06/20 11:58 05/06/20 11:58 05/06/20 11:58 05/06/20 11:58 05/06/20 11:58 Period Temp Pulse Resp BP Sys/Loza Pulse Ox Last 24 Hr 97.8 F-98.5 F 31-101 11-18 85-117/51-77 93-100 Intake and Output 05/05/20 05/06/20 05/06/20 21:59 05:59 13:59 Intake Total 850 1290 Output Total 650 350 Balance 200 940 Weight 80.286 kg Intake & Output: Intake & Output 05/05/20 05/06/20 05/06/20 21:59 05:59 13:59 Intake Total 850 1290 Output Total 650 350 Balance 200 940 Weight 80.286 kg Intake: IV 1050 Sodium Chloride 0.9% 1,000 ml @ 1000 75 mls/hr IV .[id number] [facility] Rx#: [id number] Oral 850 240 Output: Void Amount 650 350 Other: Meal Breakfast Percent of Meal Consumed 75% Feeding Ability Independent Urine Appearance Clear Clear Urine Color Bright Yellow Pale Urine Odor Normal Normal # Voids 1 Exam: General: Alert, Awake, No acute Distress, obese Eyes/N/T: EOMI, Head/Neck: neck supple, CV: RRR, No murmurs, Pulm: Clear b/l, no wheezing/rhonchi/rales Abd: soft, nontender, +BS x4 Ext: no clubbing/cyanosis/edema Neuro: Alert, no focal deficits, moves all extremities, Skin: warm/dry OBJ DATA Labs CBC & Chem 7: 05/07/20 05:33 05/07/20 05:33 Labs: Abnormal Lab Results 05/06/20 05/06/20 05/06/20 05:13 05:13 05:13 WBC 18.3 H RBC 2.95 L Hgb 9.8 L Hct 29.4 L RDW 15.4 H MPV 10.8 H Lymph % (Auto) [place] % (Auto) 14.2 H [place] # (Auto) 2.60 H Lymphocytes % Absolute Neutrophils 12.56 H Sodium Potassium Carbon Dioxide 17 L Anion Gap 19.0 H BUN 63 H Creatinine 2.4 H Glucose 150 H Calcium 8.4 L Magnesium 1.1 L GGT 68 H AST C-Reactive Protein 11.60 H Albumin 3.0 L Globulin 3.9 H Albumin/Globulin Ratio 0.8 L Procalcitonin 1.07 H Urine Appearance Urine Protein Ur Leukocyte Esterase Urine WBC Hyaline Casts Urine Mucus 05/05/20 05/05/20 05/05/20 14:15 13:21 13:21 WBC RBC Hgb Hct RDW MPV Lymph % (Auto) [place] % (Auto) [place] # (Auto) Lymphocytes % 11 L Absolute Neutrophils Sodium Potassium Carbon Dioxide Anion Gap BUN Creatinine Glucose Calcium Magnesium GGT AST C-Reactive Protein Albumin Globulin Albumin/Globulin Ratio Procalcitonin 1.33 H Urine Appearance Hazy A Urine Protein 30 A Ur Leukocyte Esterase 500 A Urine WBC 147 H Hyaline Casts 7 H Urine Mucus Few A 05/05/20 05/05/20 13:21 13:21 WBC 17.9 H RBC 2.85 L Hgb 9.6 L Hct 28.3 L RDW 15.2 H MPV 11.1 H Lymph % (Auto) 12.8 L [place] % (Auto) 12.3 H [place] # (Auto) 2.21 H Lymphocytes % Absolute Neutrophils 13.33 H Sodium 131 L Potassium 3.1 L Carbon Dioxide 17 L Anion Gap 18.0 H BUN 73 H Creatinine 3.0 H Glucose 248 H Calcium 8.1 L Magnesium GGT AST 32 H C-Reactive Protein 8.50 H Albumin 2.9 L Globulin 4.0 H Albumin/Globulin Ratio 0.7 L Procalcitonin Urine Appearance Urine Protein Ur Leukocyte Esterase Urine WBC Hyaline Casts Urine Mucus Meds: Medications Acetaminophen (Tylenol) 650 mg PO Q6HP PRN PRN Reason: PAIN/FEVER > 101 Albuterol/Ipratropium (Duoneb) 3 ml NEB Q4HP PRN PRN Reason: Shortness Of Breath Atorvastatin Calcium (Lipitor) 20 mg PO DAILY [facility] Last Admin: 05/06/20 09:04 Dose: 20 mg Documented by: Ceftriaxone Sodium (Rocephin) 1 gm IV DAILY [facility] Last Admin: 05/06/20 09:03 Dose: 1 gm Documented by: Dextrose (Dextrose 50%) 0 ml IV UD PRN PRN Reason: Hypoglycemia Diagnostic Test (Pha) (Accu-Chek) 1 each FS ACHS [facility] Last Admin: 05/06/20 11:13 Dose: 1 each Documented by: Docusate Sodium (Colace) 100 mg PO BID [facility] Last Admin: 05/06/20 09:08 Dose: Not Given Documented by: Fluticasone Propionate (Flonase) 2 spray NS QDAY [facility] Last Admin: 05/06/20 09:04 Dose: Not Given Documented by: Glucose (Insta-Glucose) 15 gm PO PRN PRN PRN Reason: Hypoglycemia Heparin Sodium (Porcine) (Heparin) 5,000 unit SQ Q12 [facility] Last Admin: 05/06/20 09:03 Dose: 5,000 unit Documented by: Potassium Chloride 40 meq/ (Dextrose) 520 mls @ 130 mls/hr IV UD PRN PRN Reason: Potassium < 3 Magnesium Sulfate (Magnesium Sulfate) 2 gm in 50 mls @ 50 mls/hr IV UD PRN PRN Reason: Magnesium </= 1.6 Last Infusion: 05/06/20 10:10 Dose: Infused Documented by: Insulin Human Lispro (Humalog) 0 unit SQ [facility]; Protocol Last Admin: 05/06/20 11:31 Dose: 8 units Documented by: Levothyroxine Sodium (Synthroid) 25 mcg PO B [facility] Last Admin: 05/06/20 09:02 Dose: 25 mcg Documented by: Lidocaine HCl (Lidocaine Viscous 2%) 5 ml PO Q6HP PRN PRN Reason: Pain Methadone HCl (Dolophine) 5 mg PO DAILY [facility] Methadone HCl (Dolophine) 5 mg PO DAILY PRN PRN Reason: Per Pain Protocol Methocarbamol (Robaxin) 750 mg PO TIDP PRN PRN Reason: muscle spasm Nortriptyline HCl (Pamelor) 10 mg PO QDAY [facility] Last Admin: 05/06/20 09:03 Dose: 10 mg Documented by: Ondansetron HCl (Zofran) 4 mg IV Q4HP PRN PRN Reason: Nausea And Vomiting Pantoprazole Sodium (Protonix) 40 mg PO ACB [facility] Last Admin: 05/06/20 09:02 Dose: 40 mg Documented by: Diclofenac Topical (Gel) 1 dose TOPICAL QID [facility] Last Admin: 05/06/20 12:15 Dose: Not Given Documented by: Amerge 2.5 Mg Tablet 1 dose PO DAILYP PRN PRN Reason: migraine headache Polyethylene Glycol (Miralax) 17 gm PO DAILYP PRN PRN Reason: Constipation Potassium Chloride (Kdur) 40 meq PO UD PRN PRN Reason: Potssium is 3-3.5 Last Admin: 05/06/20 01:06 Dose: 40 meq Documented by: Potassium Chloride (Kdur) 40 meq PO UD PRN PRN Reason: Potassium < 3 Pregabalin (Lyrica) 25 mg PO BID [facility] Last Admin: 05/06/20 09:03 Dose: 25 mg Documented by: Senna (Senokot) 2 tab PO DAILYP PRN PRN Reason: Constipation Sodium Chloride (Saline Flush) 10 ml IV Q8 [facility] Last Admin: 05/06/20 12:15 Dose: Not Given Documented by: Trazodone HCl (Desyrel) 50 mg PO QHS [facility] Last Admin: 05/05/20 20:32 Dose: 50 mg Documented by: A/P Narrative A/P Narrative: ASSESSMENT: 65 year old female with CKD III, DM II, chronic pain (on norco and methadone), GERD, recently on multiple antihypertensive medications and diuretics who was sent to the ED for symptomatic hypotension and subsequently admitted for LINA on CKD. #LINA on CKD III: suspect prerenal ATN from prolonged hypotension likely due to the patient taking multiple antihypertensives and diuretics -improving #Hypotension: 2/2 medications (coreg/acei/?lasix/aldactone/chlorthalidone) and poor oral intake -stable #AG Met Acidosis: 2/2 above, resolved #Hyponatremia/hypokalemia/hypomag: Secondary to volume depletion / diuretic's -improved #Volume depletion: improved #Leukocytosis: improving #UTI: #h/o Grade I diastolic cardiac dysfunction with EF 47% 2018: #DM: #HTN/HLD: #Pain: On methadone and [place] #Hypothyroidism: #GERD: P: -IV fluid -monitor UOP, i/o's -Monitor electrolytes and replace as needed -Rocephin for possible UTI -Hold home metformin, SSI -Hold BP meds and diuretics -PT /OT -ppx: Heparin/home ppi full code Time Spent With Patient Time: Total time spent is greater than 50% in coordination of care (as documented) at patient's floor/unit and/or counseling patient: 35 QUALITY VTE Deep Vein Thrombosis/Pulmonary Embolism Present on Admission: No
[2020-05-06] MEDS ORDERED: HYDROcodone/APAP 5/325MG TABLET PO PRN (17:25)
[2020-05-06] MEDS: traZODone HCL 50 MG TABLET PO SCH (20:40)
[2020-05-07] MEDS: 0.9 % SODIUM CHLORIDE 10 ML SYRINGE IV SCH ×4 (03:40→20:02)
[2020-05-07 06:57] LABS: Hematocrit 29.1 % (36.0-48.0); Hemoglobin 9.6 g/dL (12.0-15.0); Mean Cell Volume 101.7 fL (80.0-100.0); Mean Platelet Volume 10.4 fL (7.4-10.4); Platelet Count 306 K/mcL (140-440); RBC 2.86 M/mcL (4.00-5.20); Red Cell Distribution Width 15.9 % (11.5-14.5)
[2020-05-07 07:31] LABS: ALT/SGPT 26 U/L (<40); AST/SGOT 28 U/L (<32); Albumin 2.7 gm/dL (3.2-5.2); Albumin/Globulin Ratio 0.6 (1.0-2.3); Alkaline Phosphatase 59 U/L (39-117); Bilirubin,Direct < 0.2 mg/dL (<0.3); Bilirubin,Total 0.3 mg/dL (0.1-1.0); Blood Urea Nitrogen 51 mg/dL (8-23); Calcium 8.5 mg/dL (8.6-10.4); Carbon Dioxide 18 mmol/L (22-30); Chloride 96 mmol/L (96-108); Globulin 4.2 gm/dL (2.2-3.7); Glomerular Filtration Rate 25; Glucose 150 mg/dL (70-105); Lactate Dehydrogenase 161 U/L (135-225); Triglycerides 87 mg/dL (<150); Uric Acid 5.9 mg/dL (2.5-8.0)
[2020-05-07] MEDS: LEVOTHYROXINE 25 MCG TABLET PO SCH (07:31)
[2020-05-07] MEDS: INSULIN LISPRO 1 UNIT/0.01 ML UNIT SQ SCH ×4 (07:31→20:20)
[2020-05-07] MEDS: PANTOPRAZOLE 40 MG TABLET PO SCH (07:31)
[2020-05-07 07:47] LABS: Anisocytosis 1+ (None Seen); Band Neutrophils % 9 % (0-10); Eosinophils % (Manual) 2 % (0-7); Lymphocytes % 11 % (15-49); Macrocytosis FEW (None Seen); Monocytes % (Manual) 8 % (1-12); Platelet Estimate NORMAL (Normal); RBC Morphology ABNORMAL (Normal); Reactive Lymphocytes 2 % (0-2); Segmented Neutrophils % 68 % (38-78)
[2020-05-07] MEDS: POTASSIUM CHLORIDE 20 MEQ TABLET PO PRN (07:50)
[2020-05-07] MEDS: MAGNESIUM SULFATE 2 GM/50 ML BAG IV PRN (07:50)
[2020-05-07] MEDS: FLUTICASONE PROPIONATE SPRAY.NAS NS SCH (09:06)
[2020-05-07] MEDS: 0.9 % SODIUM CHLORIDE 1,000 ML IV SCH ×2 (09:06→20:00)
[2020-05-07] MEDS: DOCUSATE SODIUM 100 MG CAPSULE PO SCH ×2 (09:06→20:01)
[2020-05-07] MEDS: NORTRIPTYLINE 10 MG CAPSULE PO SCH (09:07)
[2020-05-07] MEDS: PREGABALIN 25 MG CAPSULE PO SCH ×2 (09:07→20:01)
[2020-05-07] MEDS: HEPARIN 5,000 UNIT/ML VIAL SQ SCH ×2 (09:07→20:01)
[2020-05-07] MEDS: ATORVASTATIN 20 MG TABLET PO SCH (09:07)
[2020-05-07] MEDS: DICLOFENAC TOPICAL GEL TOPICAL SCH ×4 (09:07→20:02)
[2020-05-07] MEDS: cefTRIAXone 1 GM VIAL IV SCH (09:07)
[2020-05-07] MEDS: METHADONE 5 MG TABLET PO SCH (20:00)
[2020-05-07] MEDS: traZODone HCL 50 MG TABLET PO SCH (20:01)
[2020-05-08] MEDS: ACETAMINOPHEN 325 MG TABLET PO PRN (01:12)
[2020-05-08] MEDS: 0.9 % SODIUM CHLORIDE 10 ML SYRINGE IV SCH ×3 (04:00→20:09)
[2020-05-08] MEDS: 0.9 % SODIUM CHLORIDE 1,000 ML IV SCH ×3 (05:41→18:26)
[2020-05-08] MEDS: LEVOTHYROXINE 25 MCG TABLET PO SCH (06:51)
[2020-05-08] MEDS: PANTOPRAZOLE 40 MG TABLET PO SCH (06:51)
[2020-05-08 06:56] LABS: Estimated Average Glucose(eAG) 157 mg/dL; Hemoglobin A1C 7.1 % Hgb (4.0-6.0)
[2020-05-08] MEDS: INSULIN LISPRO 1 UNIT/0.01 ML UNIT SQ SCH ×4 (08:07→20:28)
[2020-05-08 09:05] LABS: ALT/SGPT 26 U/L (<40); AST/SGOT 27 U/L (<32); Albumin 2.8 gm/dL (3.2-5.2); Albumin/Globulin Ratio 0.9 (1.0-2.3); Alkaline Phosphatase 48 U/L (39-117); Bilirubin,Direct < 0.2 mg/dL (<0.3); Bilirubin,Total 0.2 mg/dL (0.1-1.0); Blood Urea Nitrogen 37 mg/dL (8-23); Calcium 8.7 mg/dL (8.6-10.4); Carbon Dioxide 18 mmol/L (22-30); Chloride 98 mmol/L (96-108); Glomerular Filtration Rate 31; Glucose 159 mg/dL (70-105); Lactate Dehydrogenase 145 U/L (135-225); Phosphorous 3.6 mg/dL (2.5-4.5); Triglycerides 87 mg/dL (<150); Uric Acid 4.9 mg/dL (2.5-8.0)
[2020-05-08] MEDS: HEPARIN 5,000 UNIT/ML VIAL SQ SCH ×2 (09:58→20:08)
[2020-05-08] MEDS: NORTRIPTYLINE 10 MG CAPSULE PO SCH (09:59)
[2020-05-08] MEDS: ATORVASTATIN 20 MG TABLET PO SCH (09:59)
[2020-05-08] MEDS: PREGABALIN 25 MG CAPSULE PO SCH ×2 (09:59→20:07)
[2020-05-08] MEDS: DOCUSATE SODIUM 100 MG CAPSULE PO SCH ×2 (10:00→20:07)
[2020-05-08] MEDS: METHADONE 5 MG TABLET PO PRN (10:01)
[2020-05-08] MEDS: cefTRIAXone 1 GM VIAL IV SCH (10:01)
[2020-05-08] MEDS: FLUTICASONE PROPIONATE SPRAY.NAS NS SCH ×2 (10:02→11:31)
[2020-05-08] MEDS: DICLOFENAC TOPICAL GEL TOPICAL SCH ×4 (10:02→20:09)
[2020-05-08] MEDS: MAGNESIUM SULFATE 2 GM/50 ML BAG IV PRN (14:01)
--- NOTE | 2020-05-08 17:12 | Internal Med Progress Note ---
SUBJECTIVE Subjective Patient information: Note initiated : 05/08/20 at 5:09 pm Service Date, if different from initiated Date: [] Patient: Dylan Martin a 65 y/o F admitted on 05/05/20 for Hypotensive. Chief Complaint: [] Interval history: History of present illness: Ms. Martin is a 65 year old F Presents the ED from her primary care's office for hypotension and lightheadedness. Patient states about 4 days ago she had a decreased appetite and has hardly been eating anything and drinking mostly just water. She is on several blood pressure medications and diuretics. Not entirely sure she is taking these but what is listed on home medications Coreg lisinopril chlorthalidone furosemide and spironolactone. She complains of lightheadedness. She did have some nausea as well. No diarrhea. patient denies any recent illnesses. He denies any fevers or chills. Denies any coughing or shortness of breath. Her urine is dark and was malodorous but did not necessarily have any distance comfort upon urination. Found be hypotensive in the office and sent into the ED. Where she was also was found to be mildly hypotensive. With an elevated creatinine. Urinalysis possibly consistent with UTI. Did have a leukocytosis but was afebrile. chest x-ray pending 05/06 Feeling a little better today. No overnight event or new complaints. Blood pr essure stable although low normal. Persistent leukocytosis, waiting cultures. Creatinine improved. Low magnesium. 05/07 Improving renal function, making urine, low potassium and magnesium. Feels much better. Blood pressure still low but asymptomatic. 05/08 Renal function continues to improve, good urine output, magnesium low. Decreased IV fluid. Probably discharge to home tomorrow. Review of Systems: Occasional headache. Denies fever/chills/nausea/vomiting/chest or abdominal pain/cough/dyspnea/diarrhea. Otherwise see above. Constitutional Vitals: Vital Signs Temp Pulse Resp BP Pulse Ox 97.7 F 81 20 126/82 95 05/08/20 08:00 05/08/20 08:00 05/08/20 08:00 05/08/20 08:00 05/08/20 08:00 Period Temp Pulse Resp BP Sys/Loza Pulse Ox Last 24 Hr 96.5 F-98.8 F 81-92 14- 109-126/49-82 95-99 Intake and Output 05/08/20 05/08/20 05/08/20 05:59 13:59 21:59 Intake Total 1568 1000 Output Total 900 1100 Balance 668 -1100 1000 Intake & Output: Intake & Output 05/08/20 05/08/20 05/08/20 05:59 13:59 21:59 Intake Total 1568 1000 Output Total 900 1100 Balance 668 -1100 1000 Intake: IV 968 1000 Sodium Chloride 0.9% 1,000 ml @ 968 1000 100 mls/hr IV .Q10H [facility] Rx#: [id number] Oral 600 Output: Void Amount 900 1100 Other: Urine Appearance Clear Clear Urine Color Bright Yellow Bright Yellow Urine Odor Normal Normal # Voids 1 Exam: General: Alert, Awake, No acute Distress, obese Eyes/N/T: EOMI, Head/Neck: neck supple, CV: RRR, No murmurs, Pulm: Clear b/l, no wheezing/rhonchi/rales Abd: soft, nontender, +BS x4 Ext: no clubbing/cyanosis/edema Neuro: Alert, no focal deficits, moves all extremities, Skin: warm/dry OBJ DATA Labs CBC & Chem 7: 05/07/20 05:33 05/08/20 05:31 Labs: Abnormal Lab Results 05/08/20 05/08/20 05/08/20 05:31 05:31 05:31 WBC RBC Hgb Hct MCV RDW MPV [place] % (Auto) [place] # (Auto) Lymphocytes % Absolute Neutrophils RBC Morphology Anisocytosis Macrocytosis Potassium Carbon Dioxide 18 L Anion Gap 17.0 H BUN 37 H Creatinine 1.7 H Glucose 159 H Hemoglobin A1c 7.1 H Calcium Magnesium 1.4 L GGT 56 H C-Reactive Protein Total Protein 5.8 L Albumin 2.8 L Globulin Albumin/Globulin Ratio 0.9 L Vitamin B12 1538.0 H Folate > 20.0 H Procalcitonin 05/07/20 05/07/20 05/07/20 05:33 05:33 05:33 WBC 16.0 H RBC 2.86 L Hgb 9.6 L Hct 29.1 L MCV 101.7 H RDW 15.9 H MPV [place] % (Auto) [place] # (Auto) Lymphocytes % 11 L Absolute Neutrophils RBC Morphology Abnormal A Anisocytosis 1+ A Macrocytosis Few A Potassium 3.2 L Carbon Dioxide 18 L Anion Gap 19.0 H BUN 51 H Creatinine 2.0 H Glucose 150 H Hemoglobin A1c Calcium 8.5 L Magnesium 1.5 L GGT 63 H C-Reactive Protein 10.50 H Total Protein Albumin 2.7 L Globulin 4.2 H Albumin/Globulin Ratio 0.6 L Vitamin B12 Folate Procalcitonin 0.74 H 05/06/20 05/06/20 05/06/20 05:13 05:13 05:13 WBC 18.3 H RBC 2.95 L Hgb 9.8 L Hct 29.4 L MCV RDW 15.4 H MPV 10.8 H [place] % (Auto) 14.2 H [place] # (Auto) 2.60 H Lymphocytes % Absolute Neutrophils 12.56 H RBC Morphology Anisocytosis Macrocytosis Potassium Carbon Dioxide 17 L Anion Gap 19.0 H BUN 63 H Creatinine 2.4 H Glucose 150 H Hemoglobin A1c Calcium 8.4 L Magnesium 1.1 L GGT 68 H C-Reactive Protein 11.60 H Total Protein Albumin 3.0 L Globulin 3.9 H Albumin/Globulin Ratio 0.8 L Vitamin B12 Folate Procalcitonin 1.07 H 05/05/20 05/05/20 13:21 13:21 WBC RBC Hgb Hct MCV RDW MPV [place] % (Auto) [place] # (Auto) Lymphocytes % 11 L Absolute Neutrophils RBC Morphology Anisocytosis Macrocytosis Potassium Carbon Dioxide Anion Gap BUN Creatinine Glucose Hemoglobin A1c Calcium Magnesium GGT C-Reactive Protein Total Protein Albumin Globulin Albumin/Globulin Ratio Vitamin B12 Folate Procalcitonin 1.33 H Meds: Medications Acetaminophen (Tylenol) 650 mg PO Q6HP PRN PRN Reason: PAIN/FEVER > 101 Last Admin: 05/08/20 01:12 Dose: 650 mg Documented by: Hydrocodone Bitart/Acetaminophen ([place] 5/325mg) 1 tab PO Q6HP PRN; Protocol PRN Reason: Per Pain Protocol Last Admin: 05/07/20 14:47 Dose: 1 tab Documented by: Albuterol/Ipratropium (Duoneb) 3 ml NEB Q4HP PRN PRN Reason: Shortness Of Breath Atorvastatin Calcium (Lipitor) 20 mg PO DAILY [facility] Last Admin: 05/08/20 09:59 Dose: 20 mg Documented by: Ceftriaxone Sodium (Rocephin) 1 gm IV DAILY [facility] Last Admin: 05/08/20 10:01 Dose: 1 gm Documented by: Dextrose (Dextrose 50%) 0 ml IV UD PRN PRN Reason: Hypoglycemia Diagnostic Test (Pha) (Accu-Chek) 1 each FS ACHS [facility] Last Admin: 05/08/20 17:04 Dose: 1 each Documented by: Docusate Sodium (Colace) 100 mg PO BID [facility] Last Admin: 05/08/20 10:00 Dose: 100 mg Documented by: Fluticasone Propionate (Flonase) 2 spray NS QDAY [facility] Last Admin: 05/08/20 11:31 Dose: 2 spray Documented by: Glucose (Insta-Glucose) 15 gm PO PRN PRN PRN Reason: Hypoglycemia Heparin Sodium (Porcine) (Heparin) 5,000 unit SQ Q12 [facility] Last Admin: 05/08/20 09:58 Dose: 5,000 unit Documented by: Potassium Chloride 40 meq/ (Dextrose) 520 mls @ 130 mls/hr IV UD PRN PRN Reason: Potassium < 3 Magnesium Sulfate (Magnesium Sulfate) 2 gm in 50 mls @ 50 mls/hr IV UD PRN PRN Reason: Magnesium </= 1.6 Last Admin: 05/08/20 14:01 Dose: 50 mls/hr Documented by: Sodium Chloride (Sodium Chloride 0.9%) 1,000 mls @ 100 mls/hr IV .Q10H [facility] Last Infusion: 05/08/20 17:03 Dose: Infused Documented by: Insulin Human Lispro (Humalog) 0 unit SQ [facility]; Protocol Last Admin: 05/08/20 17:07 Dose: 4 units Documented by: Levothyroxine Sodium (Synthroid) 25 mcg PO ACB [facility] Last Admin: 05/08/20 06:51 Dose: 25 mcg Documented by: Lidocaine HCl (Lidocaine Viscous 2%) 5 ml PO Q6HP PRN PRN Reason: Pain Methadone HCl (Dolophine) 5 mg PO HS [facility] Last Admin: 05/07/20 20:00 Dose: 5 mg Documented by: Methadone HCl (Dolophine) 5 mg PO DAILY PRN PRN Reason: Per Pain Protocol Last Admin: 05/08/20 10:01 Dose: 5 mg Documented by: Methocarbamol (Robaxin) 750 mg PO TIDP PRN PRN Reason: muscle spasm Nortriptyline HCl (Pamelor) 10 mg PO QDAY [facility] Last Admin: 05/08/20 09:59 Dose: 10 mg Documented by: Ondansetron HCl (Zofran) 4 mg IV Q4HP PRN PRN Reason: Nausea And Vomiting Pantoprazole Sodium (Protonix) 40 mg PO ACB [facility] Last Admin: 05/08/20 06:51 Dose: 40 mg Documented by: Diclofenac Topical (Gel) 1 dose TOPICAL QID [facility] Last Admin: 05/08/20 17:08 Dose: Not Given Documented by: Amerge 2.5 Mg Tablet 1 dose PO DAILYP PRN PRN Reason: migraine headache Polyethylene Glycol (Miralax) 17 gm PO DAILYP PRN PRN Reason: Constipation Potassium Chloride (Kdur) 40 meq PO UD PRN PRN Reason: Potssium is 3-3.5 Last Admin: 05/07/20 07:50 Dose: 40 meq Documented by: Potassium Chloride (Kdur) 40 meq PO UD PRN PRN Reason: Potassium < 3 Pregabalin (Lyrica) 25 mg PO BID [facility] Last Admin: 05/08/20 09:59 Dose: 25 mg Documented by: Senna (Senokot) 2 tab PO DAILYP PRN PRN Reason: Constipation Sodium Chloride (Saline Flush) 10 ml IV Q8 [facility] Last Admin: 05/08/20 14:01 Dose: 10 ml Documented by: Trazodone HCl (Desyrel) 50 mg PO QHS [facility] Last Admin: 05/07/20 20:01 Dose: 50 mg Documented by: A/P Narrative A/P Narrative: ASSESSMENT: 65 year old female with CKD III, DM II, chronic pain (on norco and methadone), GERD, recently on multiple antihypertensive medications and diuretics who was sent to the ED for symptomatic hypotension and subsequently admitted for LINA on CKD likely secondary to ATN in the setting of the patient taking multiple antihypertensive medications and diuretics. #LINA on CKD III: suspect prerenal ATN from prolonged hypotension likely due to the patient taking multiple antihypertensives and diuretics -improving #Hypotension: 2/2 medications (coreg/acei/?lasix/aldactone/chlorthalidone) and poor oral intake -stable #AG Met Acidosis: 2/2 above, resolved #Hyponatremia/hypokalemia/hypomag: Secondary to volume depletion / diuretic's -improved #Volume depletion: improved #Leukocytosis: improving #UTI: #h/o Grade I diastolic cardiac dysfunction with EF 47% 2018: #DM: #HTN/HLD: #Pain: On methadone and [place] #Hypothyroidism: #GERD: P: -decrease IV NS to 50 ml/hr -monitor UOP, i/o's -Monitor electrolytes and replace as needed -Continue Rocephin for possible UTI -Hold home metformin, SSI -Hold BP meds and diuretics-probably not resume at discharge. -PT /OT -ppx: Heparin/home ppi full code Time Spent With Patient Time: Total time spent is greater than 50% in coordination of care (as documented) at patient's floor/unit and/or counseling patient: QUALITY VTE Deep Vein Thrombosis/Pulmonary Embolism Present on Admission: No
[2020-05-08] MEDS: METHADONE 5 MG TABLET PO SCH (20:07)
[2020-05-08] MEDS: traZODone HCL 50 MG TABLET PO SCH (20:07)
[2020-05-09] MEDS: ACETAMINOPHEN 325 MG TABLET PO PRN (00:26)
[2020-05-09] MEDS: 0.9 % SODIUM CHLORIDE 10 ML SYRINGE IV SCH ×2 (04:33→12:19)
[2020-05-09] MEDS: PANTOPRAZOLE 40 MG TABLET PO SCH (07:19)
[2020-05-09] MEDS: INSULIN LISPRO 1 UNIT/0.01 ML UNIT SQ SCH ×2 (07:19→11:49)
[2020-05-09] MEDS: LEVOTHYROXINE 25 MCG TABLET PO SCH (07:19)
[2020-05-09] MEDS: METHADONE 5 MG TABLET PO PRN (07:23)
[2020-05-09 07:24] LABS: Basophils # (Auto) 0.07 K/mcL (0.00-0.20); Basophils % (Auto) 0.7 % (0.0-2.0); Eosinophils # (Auto) 0.12 K/mcL (0.00-0.70); Eosinophils % (Auto) 1.1 % (0.0-7.0); Hemoglobin 9.2 g/dL (12.0-15.0); Lymphocytes # (Auto) 2.48 K/mcL (1.50-4.80); Lymphocytes % (Auto) 23.4 % (15.0-49.0); Mean Cell Volume 98.5 fL (80.0-100.0); Mean Corpuscular HGB Conc 34.1 g/dL (31.0-36.0); Mean Platelet Volume 10.4 fL (7.4-10.4); Monocytes # (Auto) 1.25 K/mcL (0.10-0.90); Monocytes % (Auto) 11.8 % (1.0-12.0); Platelet Count 313 K/mcL (140-440); RBC 2.74 M/mcL (4.00-5.20); Red Cell Distribution Width 15.5 % (11.5-14.5); WBC 10.6 K/mcL (4.5-11.0)
[2020-05-09 08:38] LABS: ALT/SGPT 22 U/L (<40); AST/SGOT 25 U/L (<32); Albumin 2.7 gm/dL (3.2-5.2); Albumin/Globulin Ratio 0.8 (1.0-2.3); Alkaline Phosphatase 49 U/L (39-117); Bilirubin,Direct < 0.2 mg/dL (<0.3); Bilirubin,Total 0.2 mg/dL (0.1-1.0); Blood Urea Nitrogen 24 mg/dL (8-23); Carbon Dioxide 21 mmol/L (22-30); Chloride 98 mmol/L (96-108); Globulin 3.6 gm/dL (2.2-3.7); Glomerular Filtration Rate 39; Glucose 135 mg/dL (70-105); Lactate Dehydrogenase 148 U/L (135-225); Phosphorous 3.8 mg/dL (2.5-4.5); Triglycerides 103 mg/dL (<150)
[2020-05-09] MEDS: FLUTICASONE PROPIONATE SPRAY.NAS NS SCH (08:41)
[2020-05-09] MEDS: ATORVASTATIN 20 MG TABLET PO SCH (08:42)
[2020-05-09] MEDS: PREGABALIN 25 MG CAPSULE PO SCH (08:42)
[2020-05-09] MEDS: HEPARIN 5,000 UNIT/ML VIAL SQ SCH (08:42)
[2020-05-09] MEDS: cefTRIAXone 1 GM VIAL IV SCH (08:42)
[2020-05-09] MEDS: DOCUSATE SODIUM 100 MG CAPSULE PO SCH (08:42)
[2020-05-09] MEDS: NORTRIPTYLINE 10 MG CAPSULE PO SCH (08:42)
[2020-05-09] MEDS: DICLOFENAC TOPICAL GEL TOPICAL SCH ×2 (08:43→13:08)
--- NOTE | 2020-05-09 11:57 | Internal Med History&Physical ---
HPI History of Present Illness Patient information: Note initiated : 05/09/20 at 11:57 am Service Date, if different from initiated Date: [] Patient: Dylan Martin a 65 y/o F admitted on 05/05/20 for Hypotensive. Chief Complaint: [Acute kidney injury] History of present illness: Ms. Martin is a 65 year old F PFSH PFSH All Active Problems (Updated 05/05/20 @ 17:48 by Mor Ann DO) Hypotension (Acute) Acute on chronic kidney failure (Acute) Dizziness (Acute) Elevated serum globulin level (Acute) Hypotension (Acute) Elevated liver enzymes (Acute) Hypothyroidism (Chronic) Renal failure (Chronic) Anxiety (Chronic) Headache (Chronic) Hypotension (Chronic) Physical exam (Chronic) Osteopenia (Chronic) Lumbar back pain (Chronic) Peripheral neuropathy (Chronic) Fibromyalgia (Chronic) Allergic rhinitis (Chronic) Dermatitis (Chronic) Cervical radiculopathy (Chronic) Sinusitis (Chronic) Pharyngitis (Chronic) Recurrent sinusitis (Chronic) Chronic pain with drug dependence (Chronic) Fibromyalgia affecting multiple sites (Chronic) Mitral regurgitation (Chronic 07/28/12) Hypertension, essential (Chronic) Hyperlipidemia (Chronic) Dysmetabolic syndrome X (Chronic) Diabetes mellitus, type II (Chronic) Depressive disorder (Chronic) Congestive heart failure (Chronic) Chronic pain syndrome (Chronic) Cardiomyopathy (Chronic) Personal history of breast cancer (Chronic) Dao's esophagus (Chronic) Medical History (Updated 05/05/20 @ 17:48 by Mor Ann DO) Allergic rhinitis (Chronic) Anxiety (Chronic) Dao's esophagus (Chronic) Cardiomyopathy (Chronic) secondary cardiomyopathy, unspecified Cervical radiculopathy (Chronic) Chronic pain syndrome (Chronic) Congestive heart failure (Chronic) Depressive disorder (Chronic) Dermatitis (Chronic) Diabetes mellitus, type II (Chronic) Dysmetabolic syndrome X (Chronic) Fibromyalgia (Chronic) Fracture of ankle, closed (Resolved) 01/2013 Headache (Chronic) Hyperlipidemia (Chronic) Hypertension, essential (Chronic) Hypotension (Chronic) Hypothyroidism (Chronic) Lumbar back pain (Chronic) Mitral regurgitation (Chronic 07/28/12) Mild Nausea (Resolved) POSSIBLY RELATED TO BYETTA Normal endoscopy (Acute) Osteopenia (Chronic) Peripheral neuropathy (Chronic) Personal history of breast cancer (Chronic) (12/09/13-Dr Sochanski) Pharyngitis (Chronic) Physical exam (Chronic) Recurrent sinusitis (Chronic) Renal failure (Chronic) Shortness of breath (Resolved) Sinusitis (Chronic) Vomiting (Resolved) POSSIBLY RELATED TO BYET[place] Surgical History History of breast surgery (Resolved) LUMPECTOMY History of chemotherapy (Resolved) (12/09/13-Dr Carpenter) History of hysterectomy (Resolved) 1994 Due to fibroids History of radiation therapy (Resolved) (12/09/13-Dr Carpenter) Status post biopsy of skin (Resolved 09/17/13) Left Lower Extremity: Vesicular dermatitis with lichenoid inflammation Family History unknown Nonruptured cerebral aneurysm Unknown Cardiac disease Essential hypertension Glaucoma Cousin Malignant neoplasm of ovary Resulted in Social History marital status: single occupational status: retired and disabled smoking status: Former smoker alcohol intake frequency: does not drink substance use type: does not use (Including no marijuana) MEDS/ALLERGIES Home Medications and Allergies Home Medications Medication Instructions Recorded Confirmed Type lidocaine HCl 5 ml PO Q6HP PRN #120 ml 06/02/16 05/05/20 Rx naloxone 4 mg/actuation nasal spray 1 spray INTRANASAL Q2-3M PRN 04/02/19 05/05/20 History trazodone 50 mg tablet 50 mg PO QHS 04/02/19 05/05/20 History triamcinolone acetonide 0.05 % 1 applic TOPICAL BID PRN 04/02/19 05/05/20 History topical ointment pantoprazole 40 mg tablet,delayed 40 mg PO QDAY #90 tab 06/02/19 05/05/20 Rx release metformin 500 mg tablet 500 mg PO QDAY #90 tab 08/23/19 05/05/20 Rx naratriptan 2.5 mg tablet 2.5 mg PO ONCE PRN #15 tab 12/23/19 05/05/20 Rx fluticasone propionate 50 2 spray INTRANASAL QDAY #15.8 ml 12/28/19 05/05/20 Rx mcg/actuation nasal spray,suspension levothyroxine 25 mcg tablet 25 mcg PO QDAY #90 tab 02/24/20 05/05/20 Rx nortriptyline 10 mg capsule 10 mg PO QDAY #90 cap 02/24/20 05/05/20 Rx rosuvastatin 10 mg tablet See Rx Instructions .ROUTE 02/24/20 05/05/20 Rx .COMPLEX #90 tablet methocarbamol 750 mg tablet 750 mg PO TID PRN #90 tab 03/14/20 05/05/20 Rx hydrocodone 10 mg-acetaminophen 1 tab PO Q6H PRN 30 Days #120 tab 04/10/20 05/05/20 Rx 325 mg tablet methadone 10 mg tablet 5 mg PO TID #75 tab 04/10/20 05/05/20 Rx pregabalin 25 mg capsule 25 mg PO BID #60 cap 04/10/20 05/05/20 Rx magnesium 250 mg PO QDAY 15 Days #15 tab 05/09/20 Rx Allergies Allergy/AdvReac Type Severity Reaction Status Date / Time Penicillins AdvReac Intermediate Unconscious Verified 05/09/20 07:16 EXAM Constitutional Vitals: Temp Pulse Resp BP Pulse Ox 97.0 F 78 18 135/81 96 05/09/20 08:00 05/09/20 08:00 05/09/20 08:00 05/09/20 08:00 05/09/20 08:00 DATA Data Completed and Pending Labs: Labs from last 24 hours 05/09/20 05/09/20 05:50 05:50 WBC 10.6 RBC 2.74 L Hgb 9.2 L Hct 27.0 L MCV 98.5 MCH 33.6 MCHC 34.1 RDW 15.5 H Plt Count 313 MPV 10.4 Neut % (Auto) 63.0 Lymph % (Auto) 23.4 [place] % (Auto) 11.8 Eos % (Auto) 1.1 Baso % (Auto) 0.7 Lymph # (Auto) 2.48 [place] # (Auto) 1.25 H Eos # (Auto) 0.12 Baso # (Auto) 0.07 Absolute Neutrophils 6.67 Sodium 135 Potassium 3.3 Chloride 98 Carbon Dioxide 21 L Anion Gap 16.0 BUN 24 H Creatinine 1.4 H GFR Calculation 39 Glucose 135 H Uric Acid 4.0 Calcium 9.0 Phosphorus 3.8 Magnesium 1.5 L Total Bilirubin 0.2 Direct Bilirubin < 0.2 GGT 58 H AST 25 ALT 22 Alkaline Phosphatase 49 Lactate Dehydrogenase 148 Total Protein 6.3 Albumin 2.7 L Globulin 3.6 Albumin/Globulin Ratio 0.8 L Triglycerides 103 Preliminary micro results at discharge 05/05/20 21:40 Blood Culture - Preliminary Blood 05/05/20 21:26 Blood Culture - Preliminary Blood A/P Time Spent With Patient Time: Total time spent is greater than 50% in coordination of care (as documented) at patient's floor/unit and/or counseling patient: QUALITY VTE Deep Vein Thrombosis/Pulmonary Embolism Present on Admission: No
--- NOTE | 2020-05-09 12:01 | Discharge Summary ---
Discharge Provider Provider Patient information: Note initiated : 05/09/20 at 11:58 am Service Date, if different from initiated Date: [] Patient: Dylan Martin 65 y/o F admitted on 05/05/20 for Hypotensive. Chief Complaint: [Acute kidney injury] Date of admission: 05/05/20 18:05 Discharge date: 05/09/20 Primary care physician: Mey Pack Consults: 05/05/20 Consult to Physician [CONS] Stat Comment: Consulting Provider: Roberto Carlos Connor Reason For Exam: Physician to Consult Discharge Meds Discharge Medications Home Medications lidocaine HCl 5 ml PO Q6HP PRN #120 ml 06/02/16 [Rx Confirmed 05/05/20 Last T aken Unknown] naloxone 4 mg/actuation nasal spray 1 spray INTRANASAL Q2-3M PRN 04/02/19 [History Confirmed 05/05/20 Last Taken Unknown] trazodone 50 mg tablet 50 mg PO QHS 04/02/19 [History Confirmed 05/05/20 Last Taken Unknown] triamcinolone acetonide 0.05 % topical ointment 1 applic TOPICAL BID PRN 04/02/19 [History Confirmed 05/05/20 Last Taken Unknown] pantoprazole 40 mg tablet,delayed release 40 mg PO QDAY #90 tab 06/02/19 [Rx Confirmed 05/05/20 Last Taken Unknown] metformin 500 mg tablet 500 mg PO QDAY #90 tab 08/23/19 [Rx Confirmed 05/05/20 Last Taken Unknown] naratriptan 2.5 mg tablet 2.5 mg PO ONCE PRN #15 tab 12/23/19 [Rx Confirmed 05/05/20 Last Taken Unknown] fluticasone propionate 50 mcg/actuation nasal spray,suspension 2 spray INTRANASAL QDAY #15.8 ml 12/28/19 [Rx Confirmed 05/05/20 Last Taken Unknown] levothyroxine 25 mcg tablet 25 mcg PO QDAY #90 tab 02/24/20 [Rx Confirmed 05/05/20 Last Taken Unknown] nortriptyline 10 mg capsule 10 mg PO QDAY #90 cap 02/24/20 [Rx Confirmed 05/05/20 Last Taken Unknown] rosuvastatin 10 mg tablet See Rx Instructions .ROUTE .COMPLEX #90 tablet 02/24/20 [Rx Confirmed 05/05/20 Last Taken Unknown] methocarbamol 750 mg tablet 750 mg PO TID PRN #90 tab 03/14/20 [Rx Confirmed 05/05/20 Last Taken Unknown] hydrocodone 10 mg-acetaminophen 325 mg tablet 1 tab PO Q6H PRN 30 Days #120 tab 04/10/20 [Rx Confirmed 05/05/20 Last Taken Unknown] methadone 10 mg tablet 5 mg PO TID #75 tab 04/10/20 [Rx Confirmed 05/05/20 Last Taken Unknown] pregabalin 25 mg capsule 25 mg PO BID #60 cap 04/10/20 [Rx Confirmed 05/05/20 Last Taken Unknown] magnesium 250 mg PO QDAY 15 Days #15 tab 05/09/20 [Rx Last Taken Unknown] COURSE Hospital Course Hospital course: Ms. Martin is a 65 year old F Presents the ED from her primary care's office for hypotension and lightheadedness. Patient states about 4 days ago she had a decreased appetite and has hardly been eating anything and drinking mostly just water. She is on several blood pressure medications and diuretics. Not entirely sure she is taking these but what is listed on home medications Coreg lisinopril chlorthalidone furosemide and spironolactone. She complains of lightheadedness. She did have some nausea as well. No diarrhea. patient denies any recent illnesses. He denies any fevers or chills. Denies a ny coughing or shortness of breath. Her urine is dark and was malodorous but did not necessarily have any distance comfort upon urination. Found be hypotensive in the office and sent into the ED. Where she was also was found to be mildly hypotensive. With an elevated creatinine. Urinalysis possibly consistent with UTI. Did have a leukocytosis but was afebrile. chest x-ray pending 05/06 Feeling a little better today. No overnight event or new complaints. Blood pressure stable although low normal. Persistent leukocytosis, waiting cultures. Creatinine improved. Low magnesium. 05/07 Improving renal function, making urine, low potassium and magnesium. Feels much better. Blood pressure still low but asymptomatic. 05/08 Renal function continues to improve, good urine output, magnesium low. Decreased IV fluid. Probably discharge to home tomorrow. Discharge diagnosis: acute kidney injury Time Spent with Patient Time attestation: Total time spent providing and/or coordinating discharge services: EXAM Constitutional Vitals: Temp Pulse Resp BP Pulse Ox 97.0 F 78 18 135/81 96 05/09/20 08:00 05/09/20 08:00 05/09/20 08:00 05/09/20 08:00 05/09/20 08:00 Head Head exam: Present atraumatic and normal inspection Eye Eye exam: Present normal appearance; Absent scleral icterus Neck Neck exam: Present full ROM Cardiovascular Cardiovascular exam: Present normal rate and rhythm GI/Abdominal GI/Abdominal exam: Present soft Extremities Exam Extremities exam: Present full ROM Neurological Exam Neurological exam: Present alert and CN II-XII intact Skin Skin exam: Present normal color and warm Discharge Data Data Completed and Pending Labs on day of discharge: Labs from last 24 hours 05/09/20 05/09/20 05:50 05:50 WBC 10.6 RBC 2.74 L Hgb 9.2 L Hct 27.0 L MCV 98.5 MCH 33.6 MCHC 34.1 RDW 15.5 H Plt Count 313 MPV 10.4 Neut % (Auto) 63.0 Lymph % (Auto) 23.4 [place] % (Auto) 11.8 Eos % (Auto) 1.1 Baso % (Auto) 0.7 Lymph # (Auto) 2.48 [place] # (Auto) 1.25 H Eos # (Auto) 0.12 Baso # (Auto) 0.07 Absolute Neutrophils 6.67 Sodium 135 Potassium 3.3 Chloride 98 Carbon Dioxide 21 L Anion Gap 16.0 BUN 24 H Creatinine 1.4 H GFR Calculation 39 Glucose 135 H Uric Acid 4.0 Calcium 9.0 Phosphorus 3.8 Magnesium 1.5 L Total Bilirubin 0.2 Direct Bilirubin < 0.2 GGT 58 H AST 25 ALT 22 Alkaline Phosphatase 49 Lactate Dehydrogenase 148 Total Protein 6.3 Albumin 2.7 L Globulin 3.6 Albumin/Globulin Ratio 0.8 L Triglycerides 103 Preliminary micro results at discharge 05/05/20 21:40 Blood Culture - Preliminary Blood 05/05/20 21:26 Blood Culture - Preliminary Blood Discharge Plan Patient/Caregiver Discharge Instructions Activity: increase activity as tolerated Diet: Regular Diet Prescriptions: New magnesium 250 mg tablet 250 mg PO QDAY 15 Days Qty: 15 RF: 0 Continued fluticasone propionate [Flonase Allergy Relief] 50 mcg/actuation spray,suspension 2 spray INTRANASAL QDAY Qty: 15.8 RF: 5 pregabalin [Lyrica] 25 mg capsule 25 mg PO BID Qty: 60 RF: 2 hydrocodone-acetaminophen 10-325 mg tablet 1 tab PO Q6H PRN (Reason: pain) 30 Days Qty: 120 RF: 0 methadone 10 mg tablet 5 mg PO TID Qty: 75 RF: 0 pantoprazole 40 mg tablet,delayed release (DR/EC) 40 mg PO QDAY Qty: 90 RF: 4 metformin 500 mg tablet 500 mg PO QDAY Qty: 90 RF: 3 naratriptan [Amerge] 2.5 mg tablet 2.5 mg PO ONCE PRN (Reason: migraine headache) Qty: 15 RF: 2 levothyroxine 25 mcg tablet 25 mcg PO QDAY Qty: 90 RF: 0 nortriptyline 10 mg capsule 10 mg PO QDAY Qty: 90 RF: 2 rosuvastatin 10 mg tablet See Rx Instructions .ROUTE .COMPLEX Qty: 90 RF: 2 methocarbamol 750 mg tablet 750 mg PO TID PRN (Reason: muscle spasm) Qty: 90 RF: 2 trazodone 50 mg tablet 50 mg PO QHS RF: 0 triamcinolone acetonide 0.05 % ointment 1 applic TOPICAL BID PRN (Reason: Rash) RF: 0 Narcan 4 mg/actuation spray,non-aerosol 1 spray INTRANASAL Q2-3M PRN (Reason: overmedicated) RF: 0 lidocaine HCl 1 ML solution 5 ml PO Q6HP PRN (Reason: Pain) Qty: 120 RF: 0 Discontinued diclofenac sodium [Voltaren] 1 % gel 2 g TOPICAL QID Qty: 100 RF: 5 spironolactone 25 mg tablet 25 mg PO QDAY Qty: 90 RF: 4 lisinopril 40 mg tablet See Rx Instructions .ROUTE .COMPLEX Qty: 90 RF: 4 carvedilol 25 mg tablet 25 mg PO BID Qty: 180 RF: 2 chlorthalidone 25 mg tablet 12.5 mg PO QDAY Qty: 45 RF: 0 furosemide 20 mg tablet 20 mg PO QDAY Qty: 90 RF: 3 Follow Up Plan Follow up with: Mey Pack ARNP [Primary Care Provider] - Patient Disposition: Home, Self-Care Discharge Orders: Discharge Order (Routine); Ordered 05/09/20 Ordered By: Feliciano PETERSON VTE Deep Vein Thrombosis/Pulmonary Embolism Present on Admission: No
[2020-05-09] MEDS: MAGNESIUM SULFATE 2 GM/50 ML BAG IV PRN (12:18)
[2020-05-09] MEDS: 0.9 % SODIUM CHLORIDE 1,000 ML IV SCH (15:04)
== END 2020-05-09 15:00 | disposition home or self-care (01) | DRG 683 ==
LOC: ED 11:53 → MEDSUR 18:05
PROVIDERS: ADMIT Internal Medicine; ATTEND Internal Medicine

== ENCOUNTER 2020-05-22 21:39 | Inpatient (IN) ==
[2020-05-22] MEDS ORDERED: IOPAMIDOL 100 ML BOTTLE IV ONE (21:40)
[2020-05-22] MEDS ORDERED: 0.9 % SODIUM CHLORIDE 1,000 ML IV ONE (21:51)
--- NOTE | 2020-05-22 22:07 | Emergency Department Note ---
SOB HPI General Chief Complaint: Shortness of Breath/Dyspnea Stated Complaint: shortness of breath Time Seen by Provider: 05/22/20 21:51 Source: patient Mode of arrival: ambulatory Limitations: no limitations History of Present Illness HPI Narrative: Narrative: The patient presents with resolved shortness of breath. She said that earlier today she felt shortness of breath, quite suddenly. The symptoms then resolved on her way to the ED. She did have chest pain at that time but that resolved as well. Presently she is asymptomatic and wanting to be discharged. She denies cough or fever. She denies leg pain or swelling. She denies recent vomiting or diarrhea. She denies any other associated problems. Related Data Home Medications Medication Instructions Recorded Confirmed naloxone 4 mg/actuation nasal spray 1 spray INTRANASAL Q2-3M PRN 04/02/19 05/19/20 Previous Rx's Medication Instructions Recorded pantoprazole 40 mg tablet,delayed 40 mg PO QDAY #90 tab 06/02/19 release metformin 500 mg tablet 500 mg PO QDAY #90 tab 08/23/19 fluticasone propionate 50 2 spray INTRANASAL QDAY #15.8 ml 12/28/19 mcg/actuation nasal spray,suspension levothyroxine 25 mcg tablet 25 mcg PO QDAY #90 tab 02/24/20 nortriptyline 10 mg capsule 10 mg PO QDAY #90 cap 02/24/20 rosuvastatin 10 mg tablet See Rx Instructions .ROUTE 02/24/20 .COMPLEX #90 tablet magnesium 250 mg PO QDAY 15 Days #15 tab 05/09/20 hydrocodone 10 mg-acetaminophen 1 tab PO Q6H PRN 30 Days #120 tab 05/12/20 325 mg tablet pregabalin 50 mg capsule 50 mg PO BID #60 cap 05/12/20 methadone 5 mg tablet 5 mg PO Q6H #120 tab 05/17/20 carvedilol 3.125 mg tablet 3.125 mg PO BID #60 tab 05/19/20 methocarbamol 750 mg tablet 750 mg PO QID PRN #120 tab 05/19/20 naratriptan 2.5 mg tablet 2.5 mg PO ONCE PRN #15 tab 05/19/20 Allergies Allergy/AdvReac Type Severity Reaction Status Date / Time Penicillins AdvReac Intermediate Unconscious Verified 05/22/20 21:46 Review of Systems ROS ROS Narrative: Narrative: All systems ED: reviewed and negative except as stated. [facility], [facility] Narrative Patient History Narrative: Narrative: Medical/Surgical/Family History All Active Problems (Updated 05/23/20 @ 00:33 by Brandyn Ca MD) Acute exacerbation of CHF (congestive heart failure) (Acute) Acute dyspnea (Acute) Tachycardia (Acute) 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) Anemia (Acute) Hypotension (Acute) Acute on chronic kidney failure (Acute) Dizziness (Acute) Elevated serum globulin level (Acute) Hypotension (Acute) Elevated liver enzymes (Acute) Hypothyroidism (Chronic) Renal failure (Chronic) Anxiety (Chronic) Headache (Chronic) Hypotension (Chronic) Physical exam (Chronic) Osteopenia (Chronic) Lumbar back pain (Chronic) Peripheral neuropathy (Chronic) Fibromyalgia (Chronic) Allergic rhinitis (Chronic) Dermatitis (Chronic) Cervical radiculopathy (Chronic) Sinusitis (Chronic) Pharyngitis (Chronic) Recurrent sinusitis (Chronic) Chronic pain with drug dependence (Chronic) Fibromyalgia affecting multiple sites (Chronic) Mitral regurgitation (Chronic 07/28/12) Hypertension, essential (Chronic) Hyperlipidemia (Chronic) Dysmetabolic syndrome X (Chronic) Diabetes mellitus, type II (Chronic) Depressive disorder (Chronic) Congestive heart failure (Chronic) Chronic pain syndrome (Chronic) Cardiomyopathy (Chronic) Personal history of breast cancer (Chronic) Dao's esophagus (Chronic) Medical History (Updated 05/23/20 @ 00:33 by Brandyn Ca MD) Allergic rhinitis (Chronic) Anxiety (Chronic) Dao's esophagus (Chronic) Cardiomyopathy (Chronic) secondary cardiomyopathy, unspecified related to cancer treatment Cervical radiculopathy (Chronic) Chronic pain syndrome (Chronic) Congestive heart failure (Chronic) Depressive disorder (Chronic) Dermatitis (Chronic) Diabetes mellitus, type II (Chronic) Dysmetabolic syndrome X (Chronic) Fibromyalgia (Chronic) Fracture of ankle, closed (Resolved) 01/2013 Headache (Chronic) Hyperlipidemia (Chronic) Hypertension, essential (Chronic) Hypotension (Chronic) Hypothyroidism (Chronic) Lumbar back pain (Chronic) Mitral regurgitation (Chronic 07/28/12) Mild Nausea (Resolved) POSSIBLY RELATED TO [place]ET[place] Normal endoscopy (Acute) Osteopenia (Chronic) Peripheral neuropathy (Chronic) Personal history of breast cancer (Chronic) (12/09/13-Dr Carpenter) Pharyngitis (Chronic) Physical exam (Chronic) Recurrent sinusitis (Chronic) Renal failure (Chronic) Shortness of breath (Resolved) Sinusitis (Chronic) Vomiting (Resolved) POSSIBLY RELATED TO [place]ET[place] Surgical History History of breast surgery (Resolved) LUMPECTOMY History of chemotherapy (Resolved) (12/09/13-Dr Carpenter) History of hysterectomy (Resolved) 1994 Due to fibroids History of radiation therapy (Resolved) (12/09/13-Dr Carpenter) Status post biopsy of skin (Resolved 09/17/13) Left Lower Extremity: Vesicular dermatitis with lichenoid inflammation Family History unknown Nonruptured cerebral aneurysm Unknown Cardiac disease Essential hypertension Glaucoma Cousin Malignant neoplasm of ovary Resulted in Social History Smoking Status: Former smoker Alcohol Intake Frequency: does not drink Substance Use: does not use (Including no marijuana) Exam Narrative Narrative: Narrative: General Limitations: no limitations General appearance: Present alert, in no apparent distress and other (The patient is able to speak in multiple word sentences) Head Head: Present atraumatic and normal inspection Eye Eye: Present normal appearance Neck Neck: Present normal inspection, full ROM and trachea midline Chest Chest: Present normal inspection and symmetric chest wall rise Respiratory Respiratory: Present normal lung sounds bilaterally; Absent respiratory distress Cardiovascular Cardiovascular: Present normal rhythm and tachycardia; Absent regular rate Adbominal Abdominal: Present soft; Absent distention and tenderness Extremities Extremities: Present normal inspection and full ROM; Absent pedal edema, calf tenderness and other (Negative Tim) Back Back: Present full ROM Neurological Neurological: Present alert and oriented X3 Psychiatric Psychiatric: Present normal affect and normal mood Skin Skin: Present warm (WNL) and dry Course Reevaluation(s) Reevaluation #1: The patient started to become symptomatic again after returning from CT. She started to feel like she was having a hard time breathing. Heart rate went back up into the 130s. Saturation showed a room air pulse ox in the mid 80s. Due to the elevated BNP and the chest x-ray finding, I gave a dose of Lasix. Time: 23:58 Reevaluation #2: I spoke to the hospitalist, Dr. Sandy. He agreed to observe this patient here overnight. He asked me to write transition orders Time: 00:32 Vital Signs Vital signs: Vital Signs Pulse Rate 139 H 05/22/20 21:40 Respiratory Rate 24 H 05/22/20 21:40 Blood Pressure 165/115 05/22/20 21:40 Pulse Oximetry (%) 96 05/22/20 21:40 Pulse Rate 124 H 05/23/20 00:18 Respiratory Rate 27 H 05/23/20 00:25 Blood Pressure 156/120 05/23/20 00:14 Pulse Oximetry (%) 94 05/23/20 00:18 MDM MDM Narrative Medical decision making narrative: Narrative: The patient presents with resolved shortness of breath. Pneumonia is unlikely given lack of cough or fever. Cardiac etiology is considered and concerning. Pulmonary embolism is a remote possibility due to the tachycardia and tachypnea that she presented with. Pneumothorax is unlikely given equal breath sounds. Work-up will be geared towards this differential. If work-up is negative and p atient remains asymptomatic, then discharge may be discussed. Lab Data Lab results reviewed: Yes I reviewed the patient's lab results. Result diagrams: 05/22/20 22:07 05/22/20 22:07 Labs: Lab Results 05/22/20 05/22/20 05/22/20 Range/Units 22:07 22:07 22:07 WBC 7.2 (4.5-11.0) K/mcL RBC 3.02 L (4.00-5.20) M/mcL Hgb 10.2 L (12.0-15.0) g/dL Hct 30.6 L (36.0-48.0) % MCV 101.3 H (80.0-100.0) fL MCH 33.8 (26.0-34.0) pg MCHC 33.3 (31.0-36.0) g/dL RDW 16.2 H (11.5-14.5) % Plt Count 229 (140-440) K/mcL MPV 10.6 H (7.4-10.4) fL Neut % (Auto) 41.6 (38.0-78.0) % Lymph % (Auto) 45.9 (15.0-49.0) % [place] % (Auto) 11.2 (1.0-12.0) % Eos % (Auto) 0.6 (0.0-7.0) % Baso % (Auto) 0.7 (0.0-2.0) % Lymph # (Auto) 3.32 (1.50-4.80) K/mcL [place] # (Auto) 0.81 (0.10-0.90) K/mcL Eos # (Auto) 0.04 (0.00-0.70) K/mcL Baso # (Auto) 0.05 (0.00-0.20) K/mcL Absolute Neutrophils 3.02 (1.80-8.00) K/mcL D-Dimer 1.02 H (0.27-0.50) ug/mL VBG Lactic Acid (0.5-2.0) mmol/L Sodium 138 (133-145) mmol/L Potassium 3.5 (3.3-5.1) mmol/L Chloride 99 (96-108) mmol/L Carbon Dioxide 23 (22-30) mmol/L Anion Gap 16.0 (8.0-16.0) BUN 15 (8-23) mg/dL Creatinine 0.9 (0.6-1.1) mg/dL GFR Calculation 66 Glucose 133 H (70-105) mg/dL Calcium 9.1 (8.6-10.4) mg/dL Total Bilirubin 0.4 (0.1-1.0) mg/dL AST 44 H (<32) U/L ALT 48 H (<40) U/L Alkaline Phosphatase 46 (39-117) U/L Troponin T (<0.03) ng/mL NT-Pro-B Natriuret Pep 4292.0 H (<125.0) pg/mL Total Protein 7.3 (5.9-8.4) gm/dL Albumin 3.9 (3.2-5.2) gm/dL Globulin 3.4 (2.2-3.7) gm/dL Albumin/Globulin Ratio 1.1 (1.0-2.3) 05/22/20 05/22/20 Range/Units 22:07 22:07 WBC (4.5-11.0) K/mcL RBC (4.00-5.20) M/mcL Hgb (12.0-15.0) g/dL Hct (36.0-48.0) % MCV (80.0-100.0) fL MCH (26.0-34.0) pg MCHC (31.0-36.0) g/dL RDW (11.5-14.5) % Plt Count (140-440) K/mcL MPV (7.4-10.4) fL Neut % (Auto) (38.0-78.0) % Lymph % (Auto) (15.0-49.0) % [place] % (Auto) (1.0-12.0) % Eos % (Auto) (0.0-7.0) % Baso % (Auto) (0.0-2.0) % Lymph # (Auto) (1.50-4.80) K/mcL [place] # (Auto) (0.10-0.90) K/mcL Eos # (Auto) (0.00-0.70) K/mcL Baso # (Auto) (0.00-0.20) K/mcL Absolute Neutrophils (1.80-8.00) K/mcL D-Dimer (0.27-0.50) ug/mL VBG Lactic Acid 2.5 H (0.5-2.0) mmol/L Sodium (133-145) mmol/L Potassium (3.3-5.1) mmol/L Chloride (96-108) mmol/L Carbon Dioxide (22-30) mmol/L Anion Gap (8.0-16.0) BUN (8-23) mg/dL Creatinine (0.6-1.1) mg/dL GFR Calculation Glucose (70-105) mg/dL Calcium (8.6-10.4) mg/dL Total Bilirubin (0.1-1.0) mg/dL AST (<32) U/L ALT (<40) U/L Alkaline Phosphatase (39-117) U/L Troponin T < 0.01 (<0.03) ng/mL NT-Pro-B Natriuret Pep (<125.0) pg/mL Total Protein (5.9-8.4) gm/dL Albumin (3.2-5.2) gm/dL Globulin (2.2-3.7) gm/dL Albumin/Globulin Ratio (1.0-2.3) ED POC Tests ED POC Tests: KENJI - SARS Antigen Negative Radiology Data Radiology results reviewed: Yes I reviewed the patient's radiology results. Radiology results narrative: Per my interpretation of the chest x-ray, there is mild blunting of the left costophrenic angle. Per the report from the radiologist for the chest CT, there is no evidence of PE or dissection. They do note a general interstitial prominence with consideration of possible congestive heart failure. EKG Data EKG #1: EKG attestation: Yes I reviewed and interpreted this EKG. and Yes There are no EKG findings of acute coronary syndrome EKG results narrative: Junctional rhythm, rate 138, QTC 561, normal axis, narrow complex QRS, no acute ST or T changes worrisome for acute infarction EKG #2: EKG attestation: Yes I reviewed and interpreted this EKG. and Yes There are no EKG findings of acute coronary syndrome EKG results narrative: Sinus, rate 126, normal axis, normal intervals, nonspecific ST and T abnormalities, no sign of acute ST elevation PA Discharge Plan Patient/Caregiver Discharge Instructions Pt seen by SUPERINTENDENT [facility]/PA only: No Clinical Impression: Acute exacerbation of CHF (congestive heart failure), Tachycardia, Acute dyspnea Patient Disposition: Xfer As Outpt/Obs ([facility]) Condition: Fair Follow up with: Mey Pack ARNP [Primary Care Provider] - Prescriptions: No Action fluticasone propionate [Flonase Allergy Relief] 50 mcg/actuation spray,suspension 2 spray INTRANASAL QDAY Qty: 15.8 RF: 5 pantoprazole 40 mg tablet,delayed release (DR/EC) 40 mg PO QDAY Qty: 90 RF: 4 metformin 500 mg tablet 500 mg PO QDAY Qty: 90 RF: 3 levothyroxine 25 mcg tablet 25 mcg PO QDAY Qty: 90 RF: 0 nortriptyline 10 mg capsule 10 mg PO QDAY Qty: 90 RF: 2 rosuvastatin 10 mg tablet See Rx Instructions .ROUTE .COMPLEX Qty: 90 RF: 2 methadone 5 mg tablet 5 mg PO Q6H Qty: 120 RF: 0 Narcan 4 mg/actuation spray,non-aerosol 1 spray INTRANASAL Q2-3M PRN (Reason: overmedicated) RF: 0 pregabalin 50 mg capsule 50 mg PO BID Qty: 60 RF: 2 hydrocodone-acetaminophen 10-325 mg tablet 1 tab PO Q6H PRN (Reason: pain) 30 Days Qty: 120 RF: 0 methocarbamol 750 mg tablet 750 mg PO QID PRN (Reason: neck pain) Qty: 120 RF: 3 naratriptan [Amerge] 2.5 mg tablet 2.5 mg PO ONCE PRN (Reason: migraine headache) Qty: 15 RF: 2 carvedilol [Coreg] 3.125 mg tablet 3.125 mg PO BID Qty: 60 RF: 0 magnesium 250 mg tablet 250 mg PO QDAY 15 Days Qty: 15 RF: 0
[2020-05-22 22:43] LABS: Basophils # (Auto) 0.05 K/mcL (0.00-0.20); Basophils % (Auto) 0.7 % (0.0-2.0); Eosinophils # (Auto) 0.04 K/mcL (0.00-0.70); Eosinophils % (Auto) 0.6 % (0.0-7.0); Hematocrit 30.6 % (36.0-48.0); Hemoglobin 10.2 g/dL (12.0-15.0); Lymphocytes # (Auto) 3.32 K/mcL (1.50-4.80); Lymphocytes % (Auto) 45.9 % (15.0-49.0); Mean Cell Volume 101.3 fL (80.0-100.0); Mean Corpuscular HGB Conc 33.3 g/dL (31.0-36.0); Mean Platelet Volume 10.6 fL (7.4-10.4); Monocytes # (Auto) 0.81 K/mcL (0.10-0.90); Monocytes % (Auto) 11.2 % (1.0-12.0); Neutrophils % (Auto) 41.6 % (38.0-78.0); Platelet Count 229 K/mcL (140-440); RBC 3.02 M/mcL (4.00-5.20); Red Cell Distribution Width 16.2 % (11.5-14.5); WBC 7.2 K/mcL (4.5-11.0)
[2020-05-22 23:12] LABS: ALT/SGPT 48 U/L (<40); AST/SGOT 44 U/L (<32); Albumin 3.9 gm/dL (3.2-5.2); Albumin/Globulin Ratio 1.1 (1.0-2.3); Alkaline Phosphatase 46 U/L (39-117); Bilirubin,Total 0.4 mg/dL (0.1-1.0); Blood Urea Nitrogen 15 mg/dL (8-23); Calcium 9.1 mg/dL (8.6-10.4); Carbon Dioxide 23 mmol/L (22-30); Chloride 99 mmol/L (96-108); Globulin 3.4 gm/dL (2.2-3.7); Glomerular Filtration Rate 66; Glucose 133 mg/dL (70-105)
[2020-05-22] MEDS ORDERED: FUROSEMIDE 40 MG/4 ML VIAL IV ONE (23:53)
[2020-05-23] MEDS ORDERED: ONDANSETRON 4 MG/2 ML VIAL IV PRN ×4 (00:34→14:23)
[2020-05-23] MEDS ORDERED: ACETAMINOPHEN 325 MG TABLET PO PRN ×3 (00:34→14:23)
[2020-05-23] MEDS ORDERED: PNEUMOCOCCAL 23-VAL P-SAC VAC 0.5 ML SYRINGE IM ONE (02:37)
[2020-05-23] MEDS: FUROSEMIDE 40 MG/4 ML VIAL IV SCH ×3 (05:53→16:37)
--- NOTE | 2020-05-23 06:03 | XRay Report ---
INDICATION: dyspnea TECHNIQUE: AP portable semiupright chest x-ray COMPARISON: Previous chest x-rays dated 05/05/2020, 03/28/2014 FINDINGS:Multiple surgical clips in the right axilla Lungs:Mild linear density at both lung bases consistent with atelectasis. No parenchymal consolidation. No discrete pulmonary parenchymal mass. Heart, vascular:No significant cardiomegaly. Pulmonary vascularity is normal. No pulmonary edema or pulmonary congestion Mediastinum, kwaku:No mediastinal widening. No hilar mass Pleura:No pleural fluid. No pleural-based mass or calcification Skeletal:Negative. IMPRESSION: 1. Bibasilar parenchymal density most consistent with atelectasis 2. Otherwise negative chest x-ray. Interpreted and Authenticated by: Duke Burton 05/23/20
--- NOTE | 2020-05-23 06:25 | Cat Scan Report ---
INDICATION: SOB. History of breast cancer COMPARISON: None TECHNIQUE: Axial images obtained through the chest. 70ml Isovue 370 injected intravenously, and scanning was performed during pulmonary arterial phase. Sagittally and coronally reformatted images were obtained. MIP reformatted images. FINDINGS: Examination was initially interpreted by [facility] Lungs:No focal pulmonary parenchymal infiltrate or mass. There is generalized thickening of interlobular septa. This is a nonspecific finding. This probably represents interstitial pulmonary edema. Pulmonary fibrosis should be considered although there are no other manifestations of pulmonary fibrosis. Lymphangitic spread of metastasis is possible Mediastinum, vascular:Main pulmonary artery, right pulmonary artery, left pulmonary artery are negative. No intraluminal filling defects. No lobar, segmental, or subsegmental emboli. Main pulmonary artery measures 3.1 cm in cross-sectional diameter. This is borderline enlarged. Thoracic aorta is negative. No aneurysmal dilatation No pathologic mediastinal or hilar adenopathy Heart:No cardiomegaly. No pericardial effusion. There is mild reflux of contrast material into the inferior vena cava and hepatic veins. This may indicate right heart strain Pleura:No significant pleural effusion. No pleural mass or calcification Axilla, supraclavicular regions, chest wall:Multiple surgical clips in the right axilla. No pathologic adenopathy. Musculoskeletal:Compression deformity of the T11 vertebral body. Chronicity is not certain. No definite lytic lesion. No evidence for pathologic fracture. Other thoracic vertebral body heights are maintained. There is a sclerotic focus in the right 11th rib near the costovertebral joint. This is nonspecific. Breast cancer metastases can be sclerotic. There are no lytic rib lesions. There are healing fractures of the left 8th, 9th, 11th, and 12th ribs. No lytic lesions or evidence for pathologic fracture Upper Abdomen:Negative IMPRESSION: 1. Negative pulmonary CTA 2. Thickened interlobular septa. Findings may be due to interstitial edema but lymphangitic spread of metastases is possible 3. Compression fracture of the T11 vertebral body and sclerotic lesion in the right 11th rib 4. Healing fractures of the left 8th, 9th, 11th, 12th ribs 5. Mild reflux of contrast material into the inferior vena cava may indicate right heart strain 6. Borderline enlargement of the main pulmonary artery 7. Multiple surgical clips in the right axilla. History of breast cancer The exam was performed using radiation dose optimization techniques including, but not limited to, automated exposure control, adjustment of the mA and/or kV according to patient size and use of iterative reconstruction technique. Interpreted and Authenticated by: Duke Burton 05/23/20
[2020-05-23 06:31] LABS: Basophils # (Auto) 0.03 K/mcL (0.00-0.20); Basophils % (Auto) 0.3 % (0.0-2.0); Eosinophils # (Auto) 0.03 K/mcL (0.00-0.70); Eosinophils % (Auto) 0.3 % (0.0-7.0); Hematocrit 32.5 % (36.0-48.0); Hemoglobin 10.8 g/dL (12.0-15.0); Lymphocytes # (Auto) 2.91 K/mcL (1.50-4.80); Lymphocytes % (Auto) 29.2 % (15.0-49.0); Mean Corpuscular HGB Conc 33.2 g/dL (31.0-36.0); Mean Platelet Volume 10.6 fL (7.4-10.4); Monocytes # (Auto) 0.99 K/mcL (0.10-0.90); Monocytes % (Auto) 9.9 % (1.0-12.0); Neutrophils % (Auto) 60.3 % (38.0-78.0); Platelet Count 228 K/mcL (140-440); RBC 3.25 M/mcL (4.00-5.20)
[2020-05-23 07:19] LABS: ALT/SGPT 43 U/L (<40); AST/SGOT 44 U/L (<32); Albumin/Globulin Ratio 1.1 (1.0-2.3); Alkaline Phosphatase 45 U/L (39-117); Bilirubin,Direct < 0.2 mg/dL (<0.3); Bilirubin,Total 0.6 mg/dL (0.1-1.0); Blood Urea Nitrogen 14 mg/dL (8-23); Calcium 9.4 mg/dL (8.6-10.4); Carbon Dioxide 25 mmol/L (22-30); Chloride 96 mmol/L (96-108); Globulin 3.6 gm/dL (2.2-3.7); Glomerular Filtration Rate 66; Glucose 147 mg/dL (70-105); Lactate Dehydrogenase 244 U/L (135-225); Phosphorous 2.7 mg/dL (2.5-4.5); Triglycerides 139 mg/dL (<150); Uric Acid 4.1 mg/dL (2.5-8.0)
[2020-05-23] MEDS ORDERED: METOPROLOL TARTRATE 5 MG/5 ML VIAL IV PRN ×2 (09:01→14:23)
[2020-05-23] MEDS ORDERED: ACETAMINOPHEN 650 MG/65 ML BAG IV PRN ×2 (09:01→14:23)
[2020-05-23] MEDS ORDERED: DEXTROSE 31 GM ORAL.SUSP PO PRN ×2 (09:01→14:23)
[2020-05-23] MEDS ORDERED: POTASSIUM CHLORIDE 40 MEQ in DEXTROSE 5% IN WATER 500 ML IV PRN ×2 (09:01→14:23)
[2020-05-23] MEDS ORDERED: BISACODYL 10 MG SUPP.RECT PR PRN ×2 (09:01→14:23)
[2020-05-23] MEDS ORDERED: DEXTROSE 50% 50 ML VIAL IV PRN ×2 (09:01→14:23)
[2020-05-23] MEDS ORDERED: MAGNESIUM SULFATE 2 GM/50 ML BAG IV PRN ×3 (09:01→14:23)
[2020-05-23] MEDS ORDERED: hydrALAZINE 20 MG/ML VIAL IV PRN ×2 (09:01→14:23)
[2020-05-23] MEDS ORDERED: POTASSIUM CHLORIDE 20 MEQ PACKET PO PRN ×2 (09:01→14:23)
[2020-05-23] MEDS ORDERED: POLYETHYLENE GLYCOL 3350 17 GM PACKET PO PRN ×2 (09:01→14:23)
[2020-05-23] MEDS ORDERED: MELATONIN 3 MG TABLET PO PRN ×2 (09:01→14:23)
[2020-05-23] MEDS ORDERED: ONDANSETRON 4 MG ODT TABLET SL PRN ×2 (09:01→14:23)
--- NOTE | 2020-05-23 09:04 | Internal Med History&Physical ---
HPI History of Present Illness Patient information: Note initiated : 05/23/20 at 9:04 am Service Date, if different from initiated Date: [] Patient: Dylan Martin a 65 y/o F admitted on 05/23/20 for shortness of breath. Chief Complaint: Shortness of breath History of present illness: Ms. Martin is a 65 year old F with history of CHF/chronic pain who presented to the ER with gradually progressive increasing orthopnea/shortness of breath progressing from dyspnea on minimal exertion to dyspnea at rest. Her symptom has dramatically deteriorated in the last 24 hours. She denies NSAID intake or high salt diet. She further denies missing her regular medications, chest palpitation, diaphoresis lightheadedness dizziness or fall. She also denies chest palpitation. Initial work-up in the ER was consistent with hypoxia/chest imaging with bilateral interstitial edema. Elevated LFTs were noted, elevated BNP at 4300, patient was started on diuretics however despite adequate response she continues to be hypoxic and subsequently hospitalist service was consulted At the time of my evaluation patient is alert and oriented. She was able to answer most the questions. Her last echocardiogram 2017 showed an LVEF of 47%. She has not seen a explosive operator grenade. She follows up with primary care physician. She takes Coreg at home. She denies prior heart stents or other procedures but has a history of breast surgery status post lumpectomy and chemotherapy 2013. 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) Anemia (Acute) Hypotension (Acute) Acute on chronic kidney failure (Acute) Dizziness (Acute) Elevated serum globulin level (Acute) Hypotension (Acute) Elevated liver enzymes (Acute) Hypothyroidism (Chronic) Renal failure (Chronic) Anxiety (Chronic) Headache (Chronic) Hypotension (Chronic) Physical exam (Chronic) Osteopenia (Chronic) Lumbar back pain (Chronic) Peripheral neuropathy (Chronic) Fibromyalgia (Chronic) Allergic rhinitis (Chronic) Dermatitis (Chronic) Cervical radiculopathy (Chronic) Sinusitis (Chronic) Pharyngitis (Chronic) Recurrent sinusitis (Chronic) Chronic pain with drug dependence (Chronic) Fibromyalgia affecting multiple sites (Chronic) Mitral regurgitation (Chronic 07/28/12) Hypertension, essential (Chronic) Hyperlipidemia (Chronic) Dysmetabolic syndrome X (Chronic) Diabetes mellitus, type II (Chronic) Depressive disorder (Chronic) Congestive heart failure (Chronic) Chronic pain syndrome (Chronic) Cardiomyopathy (Chronic) Personal history of breast cancer (Chronic) Dao's esophagus (Chronic) Medical History (Updated 05/23/20 @ 00:33 by Brandyn Ca MD) Allergic rhinitis (Chronic) Anxiety (Chronic) Dao's esophagus (Chronic) Cardiomyopathy (Chronic) secondary cardiomyopathy, unspecified related to cancer treatment Cervical radiculopathy (Chronic) Chronic pain syndrome (Chronic) Congestive heart failure (Chronic) Depressive disorder (Chronic) Dermatitis (Chronic) Diabetes mellitus, type II (Chronic) Dysmetabolic syndrome X (Chronic) Fibromyalgia (Chronic) Fracture of ankle, closed (Resolved) 01/2013 Headache (Chronic) Hyperlipidemia (Chronic) Hypertension, essential (Chronic) Hypotension (Chronic) Hypothyroidism (Chronic) Lumbar back pain (Chronic) Mitral regurgitation (Chronic 07/28/12) Mild Nausea (Resolved) POSSIBLY RELATED TO [place]ET[place] Normal endoscopy (Acute) Osteopenia (Chronic) Peripheral neuropathy (Chronic) Personal history of breast cancer (Chronic) (12/09/13-Dr Carpenter) Pharyngitis (Chronic) Physical exam (Chronic) Recurrent sinusitis (Chronic) Renal failure (Chronic) Shortness of breath (Resolved) Sinusitis (Chronic) Vomiting (Resolved) POSSIBLY RELATED TO [place] Surgical History History of breast surgery (Resolved) LUMPECTOMY History of chemotherapy (Resolved) (12/09/13-Dr Carpenter) History of hysterectomy (Resolved) 1994 Due to fibroids History of radiation therapy (Resolved) (12/09/13-Dr Carpenter) Status post biopsy of skin (Resolved 09/17/13) Left Lower Extremity: Vesicular dermatitis with lichenoid inflammation Family History unknown Nonruptured cerebral aneurysm Unknown Cardiac disease Essential hypertension Glaucoma Cousin Malignant neoplasm of ovary Resulted in Social History marital status: single occupational status: retired and disabled smoking status: Never smoker alcohol intake frequency: does not drink substance use type: does not use MEDS/ALLERGIES Home Medications and Allergies Home Medications Medication Instructions Recorded Confirmed Type naloxone 4 mg/actuation nasal spray 1 spray INTRANASAL Q2-3M PRN 04/02/19 05/19/20 History pantoprazole 40 mg tablet,delayed 40 mg PO QDAY #90 tab 06/02/19 05/19/20 Rx release metformin 500 mg tablet 500 mg PO QDAY #90 tab 08/23/19 05/19/20 Rx fluticasone propionate 50 2 spray INTRANASAL QDAY #15.8 ml 12/28/19 05/19/20 Rx mcg/actuation nasal spray,suspension levothyroxine 25 mcg tablet 25 mcg PO QDAY #90 tab 02/24/20 05/19/20 Rx nortriptyline 10 mg capsule 10 mg PO QDAY #90 cap 02/24/20 05/19/20 Rx rosuvastatin 10 mg tablet See Rx Instructions .ROUTE 02/24/20 05/19/20 Rx .COMPLEX #90 tablet magnesium 250 mg PO QDAY 15 Days #15 tab 05/09/20 05/19/20 Rx hydrocodone 10 mg-acetaminophen 1 tab PO Q6H PRN 30 Days #120 tab 05/12/20 05/23/20 Rx 325 mg tablet pregabalin 50 mg capsule 50 mg PO BID #60 cap 05/12/20 05/19/20 Rx methadone 5 mg tablet 5 mg PO Q6H #120 tab 05/17/20 05/23/20 Rx carvedilol 3.125 mg tablet 3.125 mg PO BID #60 tab 05/19/20 05/19/20 Rx methocarbamol 750 mg tablet 750 mg PO QID PRN #120 tab 05/19/20 05/19/20 Rx naratriptan 2.5 mg tablet 2.5 mg PO ONCE PRN #15 tab 05/19/20 05/19/20 Rx Allergies Allergy/AdvReac Type Severity Reaction Status Date / Time Penicillins AdvReac Unknown Verified 05/23/20 04:00 EXAM Constitutional Vitals: Temp Pulse Resp BP Pulse Ox 98.1 F 103 H 6 L 145/98 98 05/23/20 04:00 05/23/20 08:07 05/23/20 08:07 05/23/20 08:00 05/23/20 08:07 Anxious but alert and cooperative Head normocephalic Oral cavity moist No ear nose discharge Eye movement symmetrical Neck supple no lymphadenopathy S1-S2 occasionally irregular Minimally labored breathing on 2 L oxygen Nondistended nontender abdomen Lower extremity no cyanosis clubbing or joint swelling Skin no suspicious lesion Psych no other sedation Neuro normal higher function DATA Data Completed and Pending Labs: Labs from last 24 hours 05/23/20 05/23/20 05/22/20 04:44 04:44 22:07 WBC 10.0 RBC 3.25 L Hgb 10.8 L Hct 32.5 L MCV 100.0 MCH 33.2 MCHC 33.2 RDW 16.0 H Plt Count 228 MPV 10.6 H Neut % (Auto) 60.3 Lymph % (Auto) 29.2 [place] % (Auto) 9.9 Eos % (Auto) 0.3 Baso % (Auto) 0.3 Lymph # (Auto) 2.91 [place] # (Auto) 0.99 H Eos # (Auto) 0.03 Baso # (Auto) 0.03 Absolute Neutrophils 6.01 D-Dimer VBG Lactic Acid Sodium 137 Potassium 3.9 Chloride 96 Carbon Dioxide 25 Anion Gap 16.0 BUN 14 Creatinine 0.9 GFR Calculation 66 Glucose 147 H Uric Acid 4.1 Calcium 9.4 Phosphorus 2.7 Magnesium 1.0 L Total Bilirubin 0.6 Direct Bilirubin < 0.2 GGT 63 H AST 44 H ALT 43 H Alkaline Phosphatase 45 Lactate Dehydrogenase 244 H Troponin T < 0.01 NT-Pro-B Natriuret Pep Total Protein 7.6 Albumin 4.0 Globulin 3.6 Albumin/Globulin Ratio 1.1 Triglycerides 139 05/22/20 05/22/20 05/22/20 22:07 22:07 22:07 WBC RBC Hgb Hct MCV MCH MCHC RDW Plt Count MPV Neut % (Auto) Lymph % (Auto) [place] % (Auto) Eos % (Auto) Baso % (Auto) Lymph # (Auto) [place] # (Auto) Eos # (Auto) Baso # (Auto) Absolute Neutrophils D-Dimer 1.02 H VBG Lactic Acid 2.5 H Sodium 138 Potassium 3.5 Chloride 99 Carbon Dioxide 23 Anion Gap 16.0 BUN 15 Creatinine 0.9 GFR Calculation 66 Glucose 133 H Uric Acid Calcium 9.1 Phosphorus Magnesium Total Bilirubin 0.4 Direct Bilirubin GGT AST 44 H ALT 48 H Alkaline Phosphatase 46 Lactate Dehydrogenase Troponin T NT-Pro-B Natriuret Pep 4292.0 H Total Protein 7.3 Albumin 3.9 Globulin 3.4 Albumin/Globulin Ratio 1.1 Triglycerides 05/22/20 22:07 WBC 7.2 RBC 3.02 L Hgb 10.2 L Hct 30.6 L MCV 101.3 H MCH 33.8 MCHC 33.3 RDW 16.2 H Plt Count 229 MPV 10.6 H Neut % (Auto) 41.6 Lymph % (Auto) 45.9 [place] % (Auto) 11.2 Eos % (Auto) 0.6 Baso % (Auto) 0.7 Lymph # (Auto) 3.32 [place] # (Auto) 0.81 Eos # (Auto) 0.04 Baso # (Auto) 0.05 Absolute Neutrophils 3.02 D-Dimer VBG Lactic Acid Sodium Potassium Chloride Carbon Dioxide Anion Gap BUN Creatinine GFR Calculation Glucose Uric Acid Calcium Phosphorus Magnesium Total Bilirubin Direct Bilirubin GGT AST ALT Alkaline Phosphatase Lactate Dehydrogenase Troponin T NT-Pro-B Natriuret Pep Total Protein Albumin Globulin Albumin/Globulin Ratio Triglycerides A/P Narrative A/P Narrative: * Acute decompensated systolic heart failure last known EF 1999 1847%. Repeat echo today. Continue diuresis/beta-kermit. Optimize CHF management based on echo finding. Will schedule outpatient cardiology follow-up on discharge. * Hypoxia spray failure secondary to pulmonary edema. Continue supplemental oxygen. Will likely improve with aggressive diuresis. * History of chronic pain continue pregabalin/methocarbamol/hydrocodone acetaminophen * History DM type II continue CC diet/sliding scale insulin * Low magnesium start replacement * Hypothyroidism continue home dose thyroxine * History of migraine currently stable use as needed naratriptan * GERD continue PPI * Neuropathy continue Lyrica * Hyperlipidemia continue statin * Full code * Prophylaxis Heparin Plan * Inpatient admission * Aggressive diuresis * Echocardiogram * Optimize CHF management based on echocardiogram * Telemetry monitoring * Pre-existing medical condition management home medications * PT OT nutrition support Time Spent With Patient Time: Total time spent is greater than 50% in coordination of care (as documented) at patient's floor/unit and/or counseling patient: QUALITY Stroke Symptom Onset Unknown: No VTE Deep Vein Thrombosis/Pulmonary Embolism Present on Admission: No
[2020-05-23] MEDS ORDERED: CARVEDILOL 3.125 MG TABLET PO SCH (09:05)
[2020-05-23] MEDS ORDERED: INSULIN LISPRO 1 UNIT/0.01 ML UNIT SQ SCH (11:30)
[2020-05-23] MEDS ORDERED: 0.9 % SODIUM CHLORIDE 10 ML SYRINGE IV SCH (14:00)
[2020-05-23] MEDS ORDERED: IOPAMIDOL 100 ML BOTTLE IV ONE (14:23)
[2020-05-23] MEDS ORDERED: FUROSEMIDE 40 MG/4 ML VIAL IV SCH ×2 (16:00→22:00)
[2020-05-23] MEDS: INSULIN LISPRO 1 UNIT/0.01 ML UNIT SQ SCH ×2 (16:38→21:19)
[2020-05-23] MEDS: CARVEDILOL 3.125 MG TABLET PO SCH (16:47)
[2020-05-23] MEDS: METHOCARBAMOL 750 MG TABLET PO PRN ×2 (17:29→22:13)
[2020-05-23] MEDS: HEPARIN 5,000 UNIT/ML VIAL SQ SCH ×2 (18:46→19:24)
[2020-05-23] MEDS: DOCUSATE SODIUM 100 MG CAPSULE PO SCH ×2 (18:46→19:24)
[2020-05-23] MEDS: ACETAMINOPHEN 325 MG TABLET PO PRN ×2 (18:46→22:13)
[2020-05-23] MEDS: SENNOSIDES/DOCUSATE SODIUM 1 TAB TABLET PO SCH (19:25)
[2020-05-23] MEDS ORDERED: HEPARIN 5,000 UNIT/ML VIAL SQ SCH (21:00)
[2020-05-23] MEDS ORDERED: DOCUSATE SODIUM 100 MG CAPSULE PO SCH (21:00)
[2020-05-23] MEDS ORDERED: SENNOSIDES/DOCUSATE SODIUM 1 TAB TABLET PO SCH (21:00)
[2020-05-23] MEDS: 0.9 % SODIUM CHLORIDE 10 ML SYRINGE IV SCH (21:19)
[2020-05-24] MEDS: ACETAMINOPHEN 325 MG TABLET PO PRN (03:38)
[2020-05-24] MEDS: 0.9 % SODIUM CHLORIDE 10 ML SYRINGE IV SCH ×3 (04:26→21:55)
[2020-05-24] MEDS: METHOCARBAMOL 750 MG TABLET PO PRN (04:26)
--- NOTE | 2020-05-24 06:54 | XRay Report ---
INDICATION: Interstitial abnormality TECHNIQUE: AP portable semiupright chest x-ray COMPARISON: None FINDINGS:Surgical clips in the right axilla and chest wall Lungs:Lungs are improved with decrease in interstitial abnormality. Appearance is probably secondary to improved interstitial edema. No new focal pulmonary parenchymal infiltrate Heart, vascular:No significant cardiomegaly. Pulmonary vascularity is normal. Mediastinum, kwaku:No mediastinal widening. No hilar mass Pleura:No pleural fluid. No pleural-based mass or calcification Skeletal:Negative. IMPRESSION: Improved chest x-ray. No new abnormality Interpreted and Authenticated by: Duke Burton 05/24/20
[2020-05-24] MEDS: INSULIN LISPRO 1 UNIT/0.01 ML UNIT SQ SCH ×4 (07:25→21:54)
[2020-05-24] MEDS: FUROSEMIDE 40 MG/4 ML VIAL IV SCH ×2 (08:07→15:33)
[2020-05-24] MEDS: CARVEDILOL 3.125 MG TABLET PO SCH ×2 (08:08→17:27)
[2020-05-24] MEDS ORDERED: sitaGLIPtin 100 MG TABLET PO SCH (09:00)
[2020-05-24] MEDS ORDERED: MULTIVIT,THER IRON,CA,FA & MIN 1 TABLET PO SCH (09:00)
[2020-05-24] MEDS: sitaGLIPtin 100 MG TABLET PO SCH (09:05)
[2020-05-24] MEDS: MULTIVIT,THER IRON,CA,FA & MIN 1 TABLET PO SCH (09:05)
[2020-05-24] MEDS: DOCUSATE SODIUM 100 MG CAPSULE PO SCH ×2 (09:06→21:54)
[2020-05-24] MEDS: HEPARIN 5,000 UNIT/ML VIAL SQ SCH ×2 (09:06→21:54)
[2020-05-24] MEDS ORDERED: PNEUMOCOCCAL 23-VAL P-SAC VAC 0.5 ML SYRINGE IM ONE (10:00)
[2020-05-24] MEDS ORDERED: FLU VACC QS2020-21(6MOS UP)/PF 60 MCG/0.5 ML SYRINGE IM ONE (10:00)
[2020-05-24] MEDS ORDERED: HYDROcodone/APAP 10/325MG TABLET PO PRN (11:03)
[2020-05-24] MEDS ORDERED: METHOCARBAMOL 750 MG TABLET PO PRN (11:03)
--- NOTE | 2020-05-24 11:11 | Internal Med Progress Note ---
SUBJECTIVE Subjective Patient information: Note initiated : 05/24/20 at 11:05 am Service Date, if different from initiated Date: [] Patient: Dylan Martin a 65 y/o F admitted on 05/23/20 for shortness of breath. Chief Complaint: [] Interval history: History of present illness: Ms. Martin is a 65 year old F with history of CHF/chronic pain who presented to the ER with gradually progressive increasing orthopnea/shortness of breath progressing from dyspnea on minimal exertion to dyspnea at rest. Her symptom has dramatically deteriorated in the last 24 hours. She denies NSAID intake or high salt diet. She further denies missing her regular medications, chest palpitation, diaphoresis lightheadedness dizziness or fall. She also denies chest palpitation. Initial work-up in the ER was consistent with hypoxia/chest imaging with bilateral interstitial edema. Elevated LFTs were noted, elevated BNP at 4300, patient was started on diuretics however despite adequate response she continues to be hypoxic and subsequently hospitalist service was consulted At the time of my evaluation patient is alert and oriented. She was able to answer most the questions. Her last echocardiogram 2017 showed an LVEF of 47%. She has not seen a food service team member. She follows up with primary care physician. She takes Coreg at home. She denies prior heart stents or other procedures but has a history of breast surgery status post lumpectomy and chemotherapy 2013. She denies fever, chills, diarrhea, dysuria, bloody stool, nausea vomiting or joint pain or rash 05/24-patient doing better. Diuresing well. Started on low-dose HAYDER inhibitor/Coreg. EF 50%. Continue diuresis. Recommend outpatient follow-up with cardiology/oncology given history of breast cancer and suspected lymphogenic spread on chest CT Constitutional Vitals: Vital Signs Temp Pulse Resp BP Pulse Ox 97.9 F 98 H 18 135/90 95 05/24/20 08:00 05/24/20 08:00 05/24/20 08:00 05/24/20 08:00 05/24/20 08:00 Period Temp Pulse Resp BP Sys/Loza Pulse Ox Last 24 Hr 97.4 F-98.2 F 98-113 15-23 123-136/77-98 94-100 Intake and Output 05/23/20 05/24/20 05/24/20 21:59 05:59 13:59 Intake Total 240 300 Output Total 400 400 600 Balance -160 -100 -600 Weight 76.929 kg alert oriented, On room air nonlabored breathing Nondistended abdomen Lymphedema improved No anxiety Intake & Output: Intake & Output 05/23/20 05/24/20 05/24/20 21:59 05:59 13:59 Intake Total 240 300 Output Total 400 400 600 Balance -160 -100 -600 Weight 76.929 kg Intake: Oral 240 300 Output: Void Amount 400 400 600 Other: Meal Breakfast Percent of Meal Consumed 90 Feeding Ability Independent Urine Appearance Clear Clear Urine Color Bright Yellow Bright Yellow Urine Odor Normal OBJ DATA Labs CBC & Chem 7: 05/23/20 04:44 05/23/20 04:44 Labs: Abnormal Lab Results 05/23/20 05/23/20 05/22/20 04:44 04:44 22:07 RBC 3.25 L Hgb 10.8 L Hct 32.5 L MCV RDW 16.0 H MPV 10.6 H [place] # (Auto) 0.99 H D-Dimer VBG Lactic Acid 2.5 H Glucose 147 H Magnesium 1.0 L GGT 63 H AST 44 H ALT 43 H Lactate Dehydrogenase 244 H NT-Pro-B Natriuret Pep 05/22/20 05/22/20 05/22/20 22:07 22:07 22:07 RBC 3.02 L Hgb 10.2 L Hct 30.6 L MCV 101.3 H RDW 16.2 H MPV 10.6 H [place] # (Auto) D-Dimer 1.02 H VBG Lactic Acid Glucose 133 H Magnesium GGT AST 44 H ALT 48 H Lactate Dehydrogenase NT-Pro-B Natriuret Pep 4292.0 H Meds: Medications Acetaminophen (Tylenol) 650 mg PO Q4-6HP PRN; Protocol PRN Reason: Per Pain Protocol/Fever > 101 Last Admin: 05/24/20 03:38 Dose: 650 mg Documented by: Hydrocodone Bitart/Acetaminophen ([place] 10/325mg) 1 tab PO Q6H PRN; Protocol PRN Reason: pain Bisacodyl (Dulcolax) 10 mg AR Q2-3DAYS PRN PRN Reason: Constipation Carvedilol (Coreg) 3.125 mg PO BIDCC [facility] Last Admin: 05/24/20 08:08 Dose: 3.125 mg Documented by: Dextrose (Dextrose 50%) 0 ml IV UD PRN PRN Reason: Hypoglycemia Diagnostic Test (Pha) (Accu-Chek) 1 each FS ACHS [facility] Last Admin: 05/24/20 07:19 Dose: 1 each Documented by: Docusate Sodium (Colace) 100 mg PO BID [facility] Last Admin: 05/24/20 09:06 Dose: 100 mg Documented by: Furosemide (Lasix) 40 mg IV BIDD [facility] Last Admin: 05/24/20 08:07 Dose: 40 mg Documented by: Glucose (Insta-Glucose) 15 gm PO PRN PRN PRN Reason: Hypoglycemia Heparin Sodium (Porcine) (Heparin) 5,000 unit SQ Q12 [facility] Last Admin: 05/24/20 09:06 Dose: 5,000 unit Documented by: Hydralazine HCl (Apresoline) 10 mg IV Q4-6HP PRN PRN Reason: Hypertension Magnesium Sulfate (Magnesium Sulfate) 2 gm in 50 mls @ 25 mls/hr IV DAILYP PRN PRN Reason: MAGNESIUM < OR = 1.7 Potassium Chloride 40 meq/ (Dextrose) 520 mls @ 130 mls/hr IV UD PRN PRN Reason: K+ = or < 3.5 Acetaminophen (Ofirmev) 650 mg in 65 mls @ 130 mls/hr IV Q6HP PRN; Protocol PRN Reason: Per Pain Protocol/Fever > 101 Insulin Human Lispro (Humalog) 0 unit SQ [facility]; Protocol Last Admin: 05/24/20 07:25 Dose: 1 units Documented by: Iron Carb/Multivit/[employer]/Folic Acid (Multivitamin W/Minerals) 1 tab PO DAILY [facility] Last Admin: 05/24/20 09:05 Dose: 1 tab Documented by: Levothyroxine Sodium (Synthroid) 25 mcg PO QDAY [facility] Melatonin (Melatonin 3mg Tablet) 3 mg PO HSP PRN PRN Reason: Insomnia Metformin HCl (Glucophage) 500 mg PO QDAY [facility] Methadone HCl (Dolophine) 5 mg PO Q6H [facility] Methocarbamol (Robaxin) 750 mg PO Q6HP PRN PRN Reason: Muscle Spasm Last Admin: 05/24/20 04:26 Dose: 750 mg Documented by: Methocarbamol (Robaxin) 750 mg PO QID PRN PRN Reason: neck pain Metoprolol Tartrate (Lopressor) 5 mg IV Q5M PRN PRN Reason: Heart Rate > 140 bpm Non-Formulary Medication (Magnesium) 250 mg PO QDAY [facility] Non-Formulary Medication (Naratriptan [Amerge]) 2.5 mg PO Q4HP PRN PRN Reason: migraine headache Non-Formulary Medication (Pregabalin) 50 mg PO BID [facility] Nortriptyline HCl (Pamelor) 10 mg PO QDAY [facility] Ondansetron HCl (Zofran Odt) 4 mg SL Q4-6HP PRN; Protocol PRN Reason: Nausea And Vomiting Ondansetron HCl (Zofran) 4 mg IV Q4-6HP PRN; Protocol PRN Reason: Nausea And Vomiting Pantoprazole Sodium (Protonix) 40 mg PO QDAY [facility] Polyethylene Glycol (Miralax) 17 gm PO DAILYP PRN PRN Reason: Constipation Potassium Chloride (Klor-Con) 40 meq PO DAILYP PRN PRN Reason: K+ < 3.5 Rosuvastatin Calcium (Crestor) 10 mg PO DAILY [facility] Senna/Docusate Sodium (Senna Plus Tablet) 1 tab PO HS [facility] Last Admin: 05/23/20 19:25 Dose: Not Given Documented by: Sitagliptin Phosphate (Januvia) 100 mg PO DAILY [facility] Last Admin: 05/24/20 09:05 Dose: 100 mg Documented by: Sodium Chloride (Saline Flush) 10 ml IV Q8 [facility] Last Admin: 05/24/20 04:26 Dose: 10 ml Documented by: A/P Narrative A/P Narrative: * Acute decompensated heart failure. EF 50%. Continue diuresis/beta-kermit. Add low-dose HAYDER inhibitor, schedule outpatient cardiology follow-up on dis charge. * Hypoxic respiratory failure clinically improved with aggressive diuresis. Now on room air. * History of chronic pain continue pregabalin/methocarbamol/hydrocodone acetaminophen * Chest CT with suspicion of lymphangitic metastasis, history of previous breast cancer 1991. * History DM type II continue CC diet/sliding scale insulin * Low magnesium continue replacement * Hypothyroidism continue home dose thyroxine * History of migraine currently stable use as needed naratriptan * GERD continue PPI * Neuropathy continue Lyrica * Hyperlipidemia continue statin * Full code * Prophylaxis Heparin Plan * Start low-dose HAYDER inhibitor * Continue diuresis * Pre-existing medical condition management home medications * PT OT nutrition support * Discharge in 24 hours with outpatient follow-up with cardiology/oncology Time Spent With Patient Time: Total time spent is greater than 50% in coordination of care (as documented) at patient's floor/unit and/or counseling patient: QUALITY Stroke Symptom Onset Unknown: No VTE Deep Vein Thrombosis/Pulmonary Embolism Present on Admission: No
[2020-05-24] MEDS ORDERED: NARATRIPTAN 2.5 MG PO PRN (11:16)
[2020-05-24] MEDS: METHADONE 5 MG TABLET PO SCH ×3 (11:34→23:27)
[2020-05-24] MEDS: LISINOPRIL 2.5 MG TABLET PO SCH (11:36)
[2020-05-24 13:52] LABS: Basophils # (Auto) 0.05 K/mcL (0.00-0.20); Basophils % (Auto) 0.8 % (0.0-2.0); Eosinophils # (Auto) 0.15 K/mcL (0.00-0.70); Eosinophils % (Auto) 2.5 % (0.0-7.0); Hematocrit 36.9 % (36.0-48.0); Hemoglobin 12.2 g/dL (12.0-15.0); Lymphocytes # (Auto) 2.68 K/mcL (1.50-4.80); Mean Cell Volume 101.9 fL (80.0-100.0); Mean Corpuscular HGB Conc 33.1 g/dL (31.0-36.0); Mean Platelet Volume 10.9 fL (7.4-10.4); Monocytes # (Auto) 0.85 K/mcL (0.10-0.90); Neutrophils % (Auto) 38.7 % (38.0-78.0); Platelet Count 219 K/mcL (140-440); RBC 3.62 M/mcL (4.00-5.20); Red Cell Distribution Width 16.6 % (11.5-14.5); WBC 6.1 K/mcL (4.5-11.0)
[2020-05-24 14:17] LABS: ALT/SGPT 40 U/L (<40); AST/SGOT 43 U/L (<32); Albumin 4.1 gm/dL (3.2-5.2); Albumin/Globulin Ratio 1.1 (1.0-2.3); Alkaline Phosphatase 48 U/L (39-117); Bilirubin,Direct < 0.2 mg/dL (<0.3); Bilirubin,Total 0.7 mg/dL (0.1-1.0); Blood Urea Nitrogen 18 mg/dL (8-23); Calcium 9.5 mg/dL (8.6-10.4); Carbon Dioxide 27 mmol/L (22-30); Chloride 92 mmol/L (96-108); Globulin 3.6 gm/dL (2.2-3.7); Glomerular Filtration Rate 47; Glucose 134 mg/dL (70-105); Lactate Dehydrogenase 264 U/L (135-225); Phosphorous 4.1 mg/dL (2.5-4.5); Triglycerides 156 mg/dL (<150); Uric Acid 5.3 mg/dL (2.5-8.0)
[2020-05-24] MEDS: SENNOSIDES/DOCUSATE SODIUM 1 TAB TABLET PO SCH (20:28)
[2020-05-24] MEDS ORDERED: ATORVASTATIN 20 MG TABLET PO SCH (21:00)
[2020-05-24] MEDS: PREGABALIN 25 MG CAPSULE PO SCH (21:54)
[2020-05-25] MEDS: METHADONE 5 MG TABLET PO SCH ×2 (05:45→11:42)
[2020-05-25] MEDS: 0.9 % SODIUM CHLORIDE 10 ML SYRINGE IV SCH (05:46)
[2020-05-25 07:26] LABS: ALT/SGPT 40 U/L (<40); AST/SGOT 55 U/L (<32); Albumin 4.2 gm/dL (3.2-5.2); Alkaline Phosphatase 49 U/L (39-117); Bilirubin,Direct < 0.2 mg/dL (<0.3); Bilirubin,Total 0.5 mg/dL (0.1-1.0); Blood Urea Nitrogen 24 mg/dL (8-23); Calcium 9.9 mg/dL (8.6-10.4); Carbon Dioxide 27 mmol/L (22-30); Chloride 92 mmol/L (96-108); Globulin 4.1 gm/dL (2.2-3.7); Glomerular Filtration Rate 47; Glucose 139 mg/dL (70-105); Lactate Dehydrogenase 231 U/L (135-225); Phosphorous 4.4 mg/dL (2.5-4.5); Triglycerides 174 mg/dL (<150); Uric Acid 6.7 mg/dL (2.5-8.0)
[2020-05-25] MEDS ORDERED: LEVOTHYROXINE 25 MCG TABLET PO SCH (07:30)
[2020-05-25] MEDS: INSULIN LISPRO 1 UNIT/0.01 ML UNIT SQ SCH ×2 (07:34→11:35)
[2020-05-25 07:55] LABS: Basophils # (Auto) 0.05 K/mcL (0.00-0.20); Basophils % (Auto) 0.8 % (0.0-2.0); Eosinophils # (Auto) 0.17 K/mcL (0.00-0.70); Eosinophils % (Auto) 2.7 % (0.0-7.0); Hematocrit 36.4 % (36.0-48.0); Hemoglobin 12.4 g/dL (12.0-15.0); Lymphocytes # (Auto) 3.16 K/mcL (1.50-4.80); Mean Cell Volume 99.5 fL (80.0-100.0); Mean Corpuscular HGB Conc 34.1 g/dL (31.0-36.0); Mean Platelet Volume 11.8 fL (7.4-10.4); Monocytes # (Auto) 0.99 K/mcL (0.10-0.90); Monocytes % (Auto) 15.7 % (1.0-12.0); Neutrophils % (Auto) 30.8 % (38.0-78.0); Platelet Count 208 K/mcL (140-440); RBC 3.66 M/mcL (4.00-5.20); Red Cell Distribution Width 16.1 % (11.5-14.5); WBC 6.3 K/mcL (4.5-11.0)
[2020-05-25] MEDS ORDERED: metFORMIN 500 MG TABLET PO SCH (08:00)
[2020-05-25] MEDS: CARVEDILOL 3.125 MG TABLET PO SCH (08:18)
[2020-05-25] MEDS: FUROSEMIDE 40 MG/4 ML VIAL IV SCH (08:19)
[2020-05-25] MEDS: DOCUSATE SODIUM 100 MG CAPSULE PO SCH (08:47)
[2020-05-25] MEDS: HEPARIN 5,000 UNIT/ML VIAL SQ SCH (08:47)
[2020-05-25] MEDS: PREGABALIN 25 MG CAPSULE PO SCH (08:47)
[2020-05-25] MEDS: sitaGLIPtin 100 MG TABLET PO SCH (08:47)
[2020-05-25] MEDS: MULTIVIT,THER IRON,CA,FA & MIN 1 TABLET PO SCH (08:48)
[2020-05-25] MEDS: LISINOPRIL 2.5 MG TABLET PO SCH (08:49)
[2020-05-25] MEDS ORDERED: PANTOPRAZOLE 40 MG TABLET PO SCH (09:00)
[2020-05-25] MEDS ORDERED: NORTRIPTYLINE 10 MG CAPSULE PO SCH (09:00)
[2020-05-25] MEDS ORDERED: FUROSEMIDE 20 MG TABLET PO SCH (09:00)
[2020-05-25] MEDS ORDERED: MAGNESIUM OXIDE 400 MG TABLET PO SCH (09:00)
--- NOTE | 2020-05-25 11:20 | Discharge Summary ---
Discharge Provider Provider Patient information: Note initiated : 05/25/20 at 11:15 am Service Date, if different from initiated Date: [] Patient: Dylan Martin a 65 y/o F admitted on 05/23/20 for shortness of breath. Discharge diagnosis * Acute decompensated heart failure. EF 50%. Clinical resolution noted on diuresis/beta-kermit. Started low-dose HAYDER inhibitor, recommend outpatient cardiology follow-up on discharge. * Hypoxic respiratory failure clinically resolved. 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 Commend follow-up with oncology * History DM type II stable on CC diet/sliding scale insulin * Low magnesium resolved with replacement * Hypothyroidism continue home dose thyroxine * History of migraine currently stable use as needed naratriptan * GERD continue PPI * Neuropathy continue Lyrica * Hyperlipidemia continue statin Brief hospital course History of present illness: Ms. Martin is a 65 year old F with history of CHF/chronic pain who presented to the ER with gradually progressive increasing orthopnea/shortness of breath progressing from dyspnea on minimal exertion to dyspnea at rest. Her symptom has dramatically deteriorated in the last 24 hours. She denies NSAID intake or high salt diet. She further denies missing her regular medications, chest palpitation, diaphoresis lightheadedness dizziness or fall. She also denies chest palpitation. Initial work-up in the ER was consistent with hypoxia/chest imaging with bilateral interstitial edema. Elevated LFTs were noted, elevated BNP at 4300, patient was started on diuretics however despite adequate response she continues to be hypoxic and subsequently hospitalist service was consulted At the time of my evaluation patient is alert and oriented. She was able to answer most the questions. Her last echocardiogram 2017 showed an LVEF of 47%. She has not seen a clinical program manager. She follows up with primary care physician. She takes Coreg at home. She denies prior heart stents or other procedures but has a history of breast surgery status post lumpectomy and chemotherapy 2013. She denies fever, chills, diarrhea, dysuria, bloody stool, nausea vomiting or joint pain or rash /10-patient doing better. Diuresing well. Started on low-dose HAYDER inhibitor/Coreg. EF 50%. Continue diuresis. Recommend outpatient follow-up with cardiology/oncology given history of breast cancer and suspected lymphogenic spread on chest CT 05/25-patient doing a lot better. Discharging home advised to continue diure tics/follow-up with cardiology as outpatient. Feeling a lot better. Currently on room air. Also recommend follow-up with oncology as outpatient. Blood pressure stable. Continue low-dose HAYDER inhibitor/beta-kermit. Recommend continue follow-up with PCP for better optimization of CHF. Date of admission: 05/23/20 01:30 Discharge date: 05/25/20 Primary care physician: Mey Pack Consults: 05/23/20 Consult to Physician [CONS] Stat Comment: Consulting Provider: Tanner Mcdowell Reason For Exam: Physician to Consult Discharge Meds Discharge Medications Home Medications naloxone 4 mg/actuation nasal spray 1 spray INTRANASAL Q2-3M PRN 04/02/19 [History Confirmed 05/23/20 Last Taken Unknown] pantoprazole 40 mg tablet,delayed release 40 mg PO QDAY #90 tab 06/02/19 [Rx Confirmed 05/23/20 Last Taken Unknown] metformin 500 mg tablet 500 mg PO QDAY #90 tab 08/23/19 [Rx Confirmed 05/23/20 Last Taken Unknown] fluticasone propionate 50 mcg/actuation nasal spray,suspension 2 spray INTRANASAL QDAY #15.8 ml 12/28/19 [Rx Confirmed 05/23/20 Last Taken Unknown] levothyroxine 25 mcg tablet 25 mcg PO QDAY #90 tab 02/24/20 [Rx Confirmed 05/23/20 Last Taken Unknown] nortriptyline 10 mg capsule 10 mg PO QDAY #90 cap 02/24/20 [Rx Confirmed 05/23/20 Last Taken Unknown] magnesium 250 mg PO QDAY 15 Days #15 tab 05/09/20 [Rx Confirmed 05/23/20 Last Taken Unknown] hydrocodone 10 mg-acetaminophen 325 mg tablet 1 tab PO Q6H PRN 30 Days #120 tab 05/12/20 [Rx Confirmed 05/23/20 Last Taken Unknown] pregabalin 50 mg capsule 50 mg PO BID #60 cap 05/12/20 [Rx Confirmed 05/23/20 Last Taken Unknown] methadone 5 mg tablet 5 mg PO Q6H #120 tab 05/17/20 [Rx Confirmed 05/23/20 Last Taken Unknown] carvedilol 3.125 mg tablet 3.125 mg PO BID #60 tab 05/19/20 [Rx Confirmed 05/23/20 Last Taken Unknown] methocarbamol 750 mg tablet 750 mg PO QID PRN #120 tab 05/19/20 [Rx Confirmed 05/23/20 Last Taken Unknown] naratriptan [Amerge] 2.5 mg PO Q4HP PRN 05/23/20 [History Confirmed 05/23/20 Last Taken Unknown] rosuvastatin 10 mg PO DAILY 05/23/20 [History Confirmed 05/23/20 Last Taken Unknown] furosemide 20 mg PO DAILY #30 tab 05/25/20 [Rx Last Taken Unknown] lisinopril 2.5 mg PO DAILY #30 tab 05/25/20 [Rx Last Taken Unknown] COURSE Hospital Course Hospital course: . Discharge diagnosis: Acute decompensated heart failure Time Spent with Patient Time attestation: Total time spent providing and/or coordinating discharge services: EXAM Constitutional Vitals: Temp Pulse Resp BP Pulse Ox 97.0 F 102 H 20 114/70 94 05/25/20 07:47 05/25/20 07:47 05/25/20 07:47 05/25/20 07:47 05/25/20 07:47 Discharge Data Data Completed and Pending Labs on day of discharge: Labs from last 24 hours 05/25/20 05/25/20 05/24/20 05:30 05:29 05:25 WBC 6.3 RBC 3.66 L Hgb 12.4 Hct 36.4 MCV 99.5 MCH 33.9 MCHC 34.1 RDW 16.1 H Plt Count 208 MPV 11.8 H Neut % (Auto) 30.8 L Lymph % (Auto) 50.0 H Hamblen % (Auto) 15.7 H Eos % (Auto) 2.7 Baso % (Auto) 0.8 Lymph # (Auto) 3.16 Hamblen # (Auto) 0.99 H Eos # (Auto) 0.17 Baso # (Auto) 0.05 Absolute Neutrophils 1.95 Sodium 137 136 Potassium 3.9 3.5 Chloride 92 L 92 L Carbon Dioxide 27 27 Anion Gap 18.0 H 17.0 H BUN 24 H 18 Creatinine 1.2 H 1.2 H GFR Calculation 47 47 Glucose 139 H 134 H Uric Acid 6.7 5.3 Calcium 9.9 9.5 Phosphorus 4.4 4.1 Magnesium 1.5 L 1.8 Total Bilirubin 0.5 0.7 Direct Bilirubin < 0.2 < 0.2 GGT 66 H 64 H AST 55 H 43 H ALT 40 H 40 H Alkaline Phosphatase 49 48 Lactate Dehydrogenase 231 H 264 H Total Protein 8.3 7.7 Albumin 4.2 4.1 Globulin 4.1 H 3.6 Albumin/Globulin Ratio 1.0 1.1 Triglycerides 174 H 156 H 05/24/20 05:25 WBC 6.1 RBC 3.62 L Hgb 12.2 Hct 36.9 MCV 101.9 H MCH 33.7 MCHC 33.1 RDW 16.6 H Plt Count 219 MPV 10.9 H Neut % (Auto) 38.7 Lymph % (Auto) 44.0 Hamb[place] % (Auto) 14.0 H Eos % (Auto) 2.5 Baso % (Auto) 0.8 Lymph # (Auto) 2.68 Hamb[place] # (Auto) 0.85 Eos # (Auto) 0.15 Baso # (Auto) 0.05 Absolute Neutrophils 2.36 Sodium Potassium Chloride Carbon Dioxide Anion Gap BUN Creatinine GFR Calculation Glucose Uric Acid Calcium Phosphorus Magnesium Total Bilirubin Direct Bilirubin GGT AST ALT Alkaline Phosphatase Lactate Dehydrogenase Total Protein Albumin Globulin Albumin/Globulin Ratio Triglycerides Preliminary micro results at discharge 05/22/20 22:06 Blood Culture - Preliminary Blood 05/22/20 22:00 Blood Culture - Preliminary Blood Discharge Plan Patient/Caregiver Discharge Instructions Instructions: Heart Failure (GEN), Hypoxia (GEN) Activity Restrictions/Additional Instructions: Please schedule follow-up with cardiology in 1 to 2 weeks for management of heart failure Follow-up PCP in 5 to 7 days Recommend follow-up with oncology due to suspicious finding of lymphangitic meta stasis on CT and history of breast cancer Continue lisinopril 2.5 mg daily/Coreg Continue diuretics Restrict free water intake to less than 2 L a day Daily weights and take additional dose of diuretic for couple of days if weight gain in excess of 4 pounds above baseline and call PCP for further guidance This discharge packet is provided to you to help keep you informed about your care. We want to ensure you get everything you need when you go home. You will also be receiving a call from us in a few days to follow up with you and see how you are doing since your discharge. This gives us a chance to listen to any concerns you maybe experiencing since you were discharged or any additional needs you may have, as well as providing us feedback on your care experience. We strive to always provide excellent care and thank you for your feedback and for choosing [facility]. Prescriptions: New furosemide 20 mg Tablet 20 mg PO DAILY Qty: 30 RF: 0 lisinopril 2.5 mg Tablet 2.5 mg PO DAILY Qty: 30 RF: 0 Continued fluticasone propionate [Flonase Allergy Relief] 50 mcg/actuation spray,suspension 2 spray INTRANASAL QDAY Qty: 15.8 RF: 5 pantoprazole 40 mg tablet,delayed release (DR/EC) 40 mg PO QDAY Qty: 90 RF: 4 metformin 500 mg tablet 500 mg PO QDAY Qty: 90 RF: 3 levothyroxine 25 mcg tablet 25 mcg PO QDAY Qty: 90 RF: 0 nortriptyline 10 mg capsule 10 mg PO QDAY Qty: 90 RF: 2 methadone 5 mg tablet 5 mg PO Q6H Qty: 120 RF: 0 Narcan 4 mg/actuation spray,non-aerosol 1 spray INTRANASAL Q2-3M PRN (Reason: overmedicated) RF: 0 pregabalin 50 mg capsule 50 mg PO BID Qty: 60 RF: 2 hydrocodone-acetaminophen 10-325 mg tablet 1 tab PO Q6H PRN (Reason: pain) 30 Days Qty: 120 RF: 0 methocarbamol 750 mg tablet 750 mg PO QID PRN (Reason: neck pain) Qty: 120 RF: 3 carvedilol [Coreg] 3.125 mg tablet 3.125 mg PO BID Qty: 60 RF: 0 magnesium 250 mg tablet 250 mg PO QDAY 15 Days Qty: 15 RF: 0 naratriptan [Amerge] 2.5 mg tablet 2.5 mg PO Q4HP PRN (Reason: migraine headache) RF: 0 rosuvastatin 10 mg tablet 10 mg PO DAILY RF: 0 Follow Up Plan Follow up with: Mey Pack ARNP [Primary Care Provider] - 05/26/20 1:00 pm Patient Disposition: Home, Self-Care Prognosis: Fair Rehab Potential: Fair I certify that the patient requires SNF services: No Overall status at discharge: patient is progressing back to baseline Discharge Orders: Discharge Order (Routine); Ordered 05/25/20 Ordered By: Tanner PETERSON VTE Deep Vein Thrombosis/Pulmonary Embolism Present on Admission: No
== END 2020-05-25 12:55 | disposition home or self-care (01) | DRG 291 ==
LOC: ED 21:39 → ICU 05-23 01:30 → MEDSUR 05-23 16:15
PROVIDERS: ADMIT Internal Medicine; ATTEND Internal Medicine

== ENCOUNTER 2020-09-15 02:00 | Inpatient (IN) ==
[2020-09-15] MEDS ORDERED: IOPAMIDOL 100 ML BOTTLE IV ONE ×2 (02:01→10:23)
[2020-09-15] MEDS ORDERED: LIDOCAINE 5% OINT TUBE 35GM TOPICAL ONE (02:38)
[2020-09-15] MEDS ORDERED: 0.9 % SODIUM CHLORIDE 1,000 ML IV ONE ×2 (02:38→04:31)
[2020-09-15] MEDS ORDERED: ASPIRIN 81 MG TAB.CHEW CHEWED ONE (02:38)
--- NOTE | 2020-09-15 02:44 | Emergency Department Note ---
SOB HPI General Chief Complaint: Shortness of Breath/Dyspnea Stated Complaint: sob Time Seen by Provider: 09/15/20 02:31 Source: patient Mode of arrival: ambulatory Limitations: no limitations History of Present Illness HPI Narrative: Narrative: The patient presents to the emergency department feeling short of breath since yesterday. Her symptoms began shortly after she took a new medication. She cannot recollect the name of the medication. She says she feels a mild discomfort in her chest. She says she feels extremely nervous being in the emergency department. She denies calf pain or swelling. She denies any cough or fever. Her pain is not pleuritic. She stumbled coming into the ED today and landed on her right knee, causing an abrasion. She denies other injuries. Related Data Home Medications Medication Instructions Recorded Confirmed rosuvastatin 10 mg PO DAILY 05/23/20 08/22/20 methocarbamol 750 mg tablet 750 mg PO TID PRN tab 05/26/20 08/22/20 diphenhydramine 25 1 tab PO QHS PRN 08/22/20 08/22/20 mg-acetaminophen 500 mg tablet Previous Rx's Medication Instructions Recorded fluticasone propionate 50 2 spray INTRANASAL QDAY #15.8 ml 12/28/19 mcg/actuation nasal spray,suspension nortriptyline 10 mg capsule 10 mg PO QDAY #90 cap 02/24/20 carvedilol 6.25 mg tablet 6.25 mg PO BID #60 tab 05/26/20 naloxone 4 mg/actuation nasal spray 1 spray INTRANASAL Q2-3M PRN #2 ea 06/12/20 naratriptan 2.5 mg tablet 2.5 mg PO Q4HP PRN #60 tab 06/13/20 pregabalin 25 mg capsule 25 mg PO BID #60 cap 06/14/20 levothyroxine 25 mcg tablet See Rx Instructions .ROUTE 07/04/20 .COMPLEX #90 tab pantoprazole 40 mg tablet,delayed See Rx Instructions .ROUTE 07/04/20 release .COMPLEX #90 tab furosemide 20 mg tablet 20 mg PO DAILY #90 tab 07/13/20 lisinopril 2.5 mg tablet 2.5 mg PO DAILY #90 tab 07/13/20 metformin 500 mg tablet See Rx Instructions .ROUTE 08/07/20 .COMPLEX #90 tab hydrocodone 10 mg-acetaminophen 1 tab PO Q6H PRN 30 Days #120 tab 09/12/20 325 mg tablet methadone 5 mg tablet 10 mg PO BID #120 tab 09/12/20 Allergies Allergy/AdvReac Type Severity Reaction Status Date / Time Penicillins AdvReac Unknown Unknown Verified 08/22/20 09:54 Review of Systems ROS ROS Narrative: Narrative: All systems ED: reviewed and negative except as stated. [facility] Narrative Patient History Narrative: Narrative: Medical/Surgical/Family History All Active Problems (Updated 09/15/20 @ 06:49 by Brandyn Ca MD) Dao's esophagus (Chronic) Personal history of breast cancer (Chronic) Cardiomyopathy (Chronic) Chronic pain syndrome (Chronic) Congestive heart failure (Chronic) Depressive disorder (Chronic) Diabetes mellitus, type II (Chronic) Dysmetabolic syndrome X (Chronic) Hyperlipidemia (Chronic) Hypertension, essential (Chronic) Mitral regurgitation (Chronic 07/28/12) Fibromyalgia affecting multiple sites (Chronic) Chronic pain with drug dependence (Chronic) Sinusitis (Chronic) Pharyngitis (Chronic) Recurrent sinusitis (Chronic) Cervical radiculopathy (Chronic) Dermatitis (Chronic) Allergic rhinitis (Chronic) Fibromyalgia (Chronic) Peripheral neuropathy (Chronic) Lumbar back pain (Chronic) Osteopenia (Chronic) Physical exam (Chronic) Hypotension (Chronic) Headache (Chronic) Anxiety (Chronic) Renal failure (Chronic) Hypothyroidism (Chronic) Elevated liver enzymes (Acute) Hypotension (Acute) Elevated serum globulin level (Acute) Dizziness (Acute) Hypotension (Acute) Acute on chronic kidney failure (Acute) Anemia (Acute) 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) Tachycardia (Acute) Acute exacerbation of CHF (congestive heart failure) (Acute) Acute dyspnea (Acute) Abnormal finding of diagnostic imaging (Acute) CKD stage G2/A2, GFR 60-89 and albumin creatinine ratio 30-299 mg/g (Chronic) Pulmonary edema (Acute) Medical History (Updated 09/15/20 @ 06:49 by Brandyn Ca MD) Allergic rhinitis Anxiety Dao's esophagus Cardiomyopathy secondary cardiomyopathy, unspecified related to cancer treatment Cervical radiculopathy Chronic pain syndrome Congestive heart failure Depressive disorder Dermatitis Diabetes mellitus, type II Dysmetabolic syndrome X Fibromyalgia Fracture of ankle, closed 01/2013 Headache Hyperlipidemia Hypertension, essential Hypotension Hypothyroidism Lumbar back pain Mitral regurgitation (07/28/12) Mild Nausea POSSIBLY RELATED TO BYETTA Normal endoscopy Osteopenia Peripheral neuropathy Personal history of breast cancer (12/09/13-Dr Carpenter) Pharyngitis Physical exam Recurrent sinusitis Renal failure Shortness of breath Sinusitis Vomiting POSSIBLY RELATED TO BYET[place] Surgical History History of breast surgery LUMPECTOMY History of chemotherapy (12/09/13-Dr Carpenter) History of hysterectomy 1994 Due to fibroids History of radiation therapy (12/09/13-Dr Carpenter) Status post biopsy of skin (09/17/13) Left Lower Extremity: Vesicular dermatitis with lichenoid inflammation Family History unknown Nonruptured cerebral aneurysm Unknown Cardiac disease Essential hypertension Glaucoma Cousin Malignant neoplasm of ovary Resulted in Social History Smoking Status: Never smoker Alcohol Intake Frequency: does not drink Substance Use: does not use Exam Narrative Narrative: Narrative: General Limitations: no limitations General appearance: Present alert and in no apparent distress (The patient is speaking in full word sentences) Head Head: Present atraumatic and normal inspection Eye Eye: Present normal appearance ENT ENT: Present mucous membranes moist Neck Neck: Present normal inspection, full ROM and trachea midline Chest Chest: Present normal inspection and symmetric chest wall rise Respiratory Respiratory: Present normal lung sounds bilaterally; Absent respiratory distress Cardiovascular Cardiovascular: Present normal rhythm and tachycardia; Absent regular rate Adbominal Abdominal: Present soft; Absent distention and tenderness Extremities Extremities: Present full ROM; Absent normal inspection (Abrasion to right knee), tenderness, pedal edema and calf tenderness Back Back: Present full ROM Neurological Neurological: Present alert and oriented X3 Psychiatric Psychiatric: Present normal affect and normal mood Skin Skin: Present warm (WNL) and dry Course Vital Signs Vital signs: Vital Signs Temperature 98.4 F 09/15/20 02:02 Pulse Rate 129 H 09/15/20 02:02 Respiratory Rate 16 09/15/20 02:02 Blood Pressure 140/102 09/15/20 02:02 Pulse Oximetry (%) 96 09/15/20 02:02 Temperature 97.8 F 09/15/20 03:59 Pulse Rate 124 H 09/15/20 06:20 Respiratory Rate 30 H 09/15/20 06:20 Blood Pressure 150/110 09/15/20 06:03 Pulse Oximetry (%) 94 09/15/20 06:20 [facility] MDM Narrative Medical decision making narrative: Narrative: The patient presents with chest pain and shortness of breath. She is tachycardic. This could be from her being nervous. Pulmonary embolism is in the differential. She is high risk given history of cancer and tachycardia. Plan to go straight to CT. ACS is also considered but thought to be less likely given duration of symptoms. We will give a dose of aspirin and do serial troponins. Medication reaction is considered. I doubt pneumonia given lack of symptoms. Work-up will be geared towards this differential. If it is completely negative including the repeat troponin, then discharge may be discussed. At change of shift, the repeat troponin is still pending. I think that if it has not changed, the patient can stay locally and be diuresed. If it has changed, patient will need to be sent somewhere with cardiac capability. Patient is handed over to the oncoming physician who will follow up on that repeat troponin and then make appropriate disposition Lab Data Lab results reviewed: Yes I reviewed the patient's lab results. Result diagrams: 09/15/20 02:46 09/15/20 02:46 Labs: Lab Results 09/15/20 09/15/20 09/15/20 Range/Units 02:46 02:46 02:46 WBC 7.8 (4.5-11.0) K/mcL RBC 3.64 L (4.00-5.20) M/mcL Hgb 11.9 L (12.0-15.0) g/dL Hct 34.3 L (36.0-48.0) % MCV 94.2 (80.0-100.0) fL MCH 32.7 (26.0-34.0) pg MCHC 34.7 (31.0-36.0) g/dL RDW 15.4 H (11.5-14.5) % Plt Count 105 L (140-440) K/mcL MPV 10.9 H (7.4-10.4) fL Neut % (Auto) 67.9 (38.0-78.0) % Lymph % (Auto) 25.4 (15.0-49.0) % Graham % (Auto) 6.4 (1.0-12.0) % Eos % (Auto) 0 (0.0-7.0) % Baso % (Auto) 0.3 (0.0-2.0) % Lymph # (Auto) 1.98 (1.50-4.80) K/mcL Graham # (Auto) 0.50 (0.10-0.90) K/mcL Eos # (Auto) 0 (0.00-0.70) K/mcL Baso # (Auto) 0.02 (0.00-0.20) K/mcL Absolute Neutrophils 5.30 (1.80-8.00) K/mcL Sodium 137 (133-145) mmol/L Potassium 4.1 (3.3-5.1) mmol/L Chloride 93 L (96-108) mmol/L Carbon Dioxide 15 L (22-30) mmol/L Anion Gap 29.0 H (8.0-16.0) BUN 17 (8-23) mg/dL Creatinine 1.0 (0.6-1.1) mg/dL GFR Calculation 58 Glucose 159 H (70-105) mg/dL Calcium 9.1 (8.6-10.4) mg/dL Total Bilirubin 1.1 H (0.1-1.0) mg/dL AST 127 H (<32) U/L ALT 97 H (<40) U/L Alkaline Phosphatase 57 (39-117) U/L Troponin T 0.05 H* (<0.03) ng/mL Total Protein 7.6 (5.9-8.4) gm/dL Albumin 4.4 (3.2-5.2) gm/dL Globulin 3.2 (2.2-3.7) gm/dL Albumin/Globulin Ratio 1.4 (1.0-2.3) ED POC Tests ED POC Tests: KENJI - SARS Antigen Negative Radiology Data Radiology results reviewed: Yes I reviewed the patient's radiology results. EKG Data EKG #1: EKG attestation: Yes I reviewed and interpreted this EKG. and Yes There are no EKG findings of acute coronary syndrome EKG results narrative: Sinus, rate 121, left axis, QTC 461, TX 129, narrow complex QRS, no acute ST or T changes worrisome for acute infarction CC TIME Critical Care Time Critical Care Time: Yes Total Critical Care Time: 55 Discharge Plan Patient/Caregiver Discharge Instructions Pt seen by COAT EXAMINER/PA only: No Clinical Impression: Congestive heart failure Qualifiers: Heart failure type: unspecified Heart failure chronicity: unspecified Qualified Code(s): I50.9 - Heart failure, unspecified Pulmonary edema Qualifiers: Chronicity: acute Qualified Code(s): J81.0 - Acute pulmonary edema Patient Disposition: Still a Patient Follow up with: Mey Pack ARNP [Primary Care Provider] - Prescriptions: No Action fluticasone propionate [Flonase Allergy Relief] 50 mcg/actuation spray,suspension 2 spray INTRANASAL QDAY Qty: 15.8 RF: 5 nortriptyline 10 mg capsule 10 mg PO QDAY Qty: 90 RF: 2 Narcan 4 mg/actuation spray,non-aerosol 1 spray INTRANASAL Q2-3M PRN (Reason: overmedicated) Qty: 2 RF: 0 naratriptan [Amerge] 2.5 mg tablet 2.5 mg PO Q4HP PRN (Reason: migraine headache) Qty: 60 RF: 0 pregabalin 25 mg capsule 25 mg PO BID Qty: 60 RF: 2 levothyroxine 25 mcg tablet See Rx Instructions .ROUTE .COMPLEX Qty: 90 RF: 0 pantoprazole 40 mg tablet,delayed release (DR/EC) See Rx Instructions .ROUTE .COMPLEX Qty: 90 RF: 0 metformin 500 mg tablet See Rx Instructions .ROUTE .COMPLEX Qty: 90 RF: 0 hydrocodone-acetaminophen 10-325 mg tablet 1 tab PO Q6H PRN (Reason: pain) 30 Days Qty: 120 RF: 0 methadone 5 mg tablet 10 mg PO BID Qty: 120 RF: 0 diphenhydramine-acetaminophen [Tylenol PM Extra Strength] 25-500 mg tablet 1 tab PO QHS PRNRF: 0 furosemide 20 mg tablet 20 mg PO DAILY Qty: 90 RF: 3 lisinopril 2.5 mg tablet 2.5 mg PO DAILY Qty: 90 RF: 3 methocarbamol 750 mg tablet 750 mg PO TID PRN (Reason: neck pain) RF: 0 carvedilol [Coreg] 6.25 mg tablet 6.25 mg PO BID Qty: 60 RF: 2 rosuvastatin 10 mg tablet 10 mg PO DAILY RF: 0
[2020-09-15] MEDS ORDERED: LIDOCAINE HCL TOPICAL ONE (02:52)
[2020-09-15] MEDS ORDERED: EPINEPHRINE TOPICAL ONE (02:52)
[2020-09-15 03:46] LABS: Basophils # (Auto) 0.02 K/mcL (0.00-0.20); Basophils % (Auto) 0.3 % (0.0-2.0); Eosinophils # (Auto) 0 K/mcL (0.00-0.70); Eosinophils % (Auto) 0 % (0.0-7.0); Hematocrit 34.3 % (36.0-48.0); Hemoglobin 11.9 g/dL (12.0-15.0); Lymphocytes # (Auto) 1.98 K/mcL (1.50-4.80); Lymphocytes % (Auto) 25.4 % (15.0-49.0); Mean Cell Volume 94.2 fL (80.0-100.0); Mean Corpuscular HGB Conc 34.7 g/dL (31.0-36.0); Mean Platelet Volume 10.9 fL (7.4-10.4); Monocytes % (Auto) 6.4 % (1.0-12.0); Neutrophils % (Auto) 67.9 % (38.0-78.0); Platelet Count 105 K/mcL (140-440); RBC 3.64 M/mcL (4.00-5.20); Red Cell Distribution Width 15.4 % (11.5-14.5); WBC 7.8 K/mcL (4.5-11.0)
[2020-09-15 04:06] LABS: ALT/SGPT 97 U/L (<40); AST/SGOT 127 U/L (<32); Albumin 4.4 gm/dL (3.2-5.2); Albumin/Globulin Ratio 1.4 (1.0-2.3); Alkaline Phosphatase 57 U/L (39-117); Bilirubin,Total 1.1 mg/dL (0.1-1.0); Blood Urea Nitrogen 17 mg/dL (8-23); Calcium 9.1 mg/dL (8.6-10.4); Carbon Dioxide 15 mmol/L (22-30); Chloride 93 mmol/L (96-108); Globulin 3.2 gm/dL (2.2-3.7); Glomerular Filtration Rate 58; Glucose 159 mg/dL (70-105)
[2020-09-15] MEDS ORDERED: FUROSEMIDE 40 MG/4 ML VIAL IV ONE (04:44)
--- NOTE | 2020-09-15 05:57 | Cat Scan Report ---
INDICATION: SOB COMPARISON: Previous chest CT scan dated 07/19/2020, 05/22/2020. Previous chest x-ray dated 05/24/2020 TECHNIQUE: Axial images obtained through the chest. 80 mLml Isovue 370 injected intravenously, and scanning was performed during pulmonary arterial phase. Sagittally and coronally reformatted images were obtained. MIP reformatted images. FINDINGS: Examination was initially interpreted by [facility] Lungs:Evaluation of the lungs is somewhat suboptimal due to respiratory motion. There is extensive reticular abnormality consistent with interlobular septal thickening. Findings are new since previous examination and are consistent with interstitial pulmonary edema. No parenchymal consolidation. No discrete mass. Mediastinum, vascular:Main pulmonary artery, right pulmonary artery, left pulmonary artery are negative. No intraluminal filling defects. No lobar, segmental, or subsegmental emboli. Thoracic aorta is negative. No aneurysmal dilatation No pathologic mediastinal or hilar adenopathy Heart:No cardiomegaly. No pericardial effusion. No significant reflux of contrast material into the inferior vena cava or hepatic veins Pleura: There are small right pleural effusion. No pleural mass or calcification Axilla, supraclavicular regions, chest wall:No pathologic axillary or supraclavicular adenopathy. Musculoskeletal:T11 compression deformity is unchanged. No new compression fractures. No lytic or sclerotic lesions. Sternum and ribs are negative. Upper Abdomen:Low density liver consistent with hepatic steatosis. Liver contour is smooth. No hepatic mass. There is a small hiatal hernia. IMPRESSION: 1. Negative pulmonary CTA. No pulmonary embolism 2. Diffuse reticular abnormality consistent with interstitial pulmonary edema 3. Hepatic steatosis The exam was performed using radiation dose optimization techniques including, but not limited to, automated exposure control, adjustment of the mA and/or kV according to patient size and use of iterative reconstruction technique. Interpreted and Authenticated by: Duke Burton 09/15/20
[2020-09-15 07:09] LABS: Free T4 (Free Thyroxine) 0.87 ng/dL (0.93-1.70)
[2020-09-15] MEDS ORDERED: NITROGLYCERIN 0.1 MG/HR PATCH TD ONE (07:47)
[2020-09-15] MEDS ORDERED: FUROSEMIDE 20 MG/2 ML VIAL IV ONE (07:47)
[2020-09-15] MEDS ORDERED: NITROGLYCERIN 1 GM OINT.TOP TD ONE (07:55)
--- NOTE | 2020-09-15 08:00 | Emergency Department Note ---
SOB HPI General Chief Complaint: Shortness of Breath/Dyspnea Stated Complaint: sob Time Seen by Provider: 09/15/20 02:31 Source: patient Mode of arrival: ambulatory Limitations: no limitations History of Present Illness HPI Narrative: Narrative: Related Data Home Medications Medication Instructions Recorded Confirmed rosuvastatin 10 mg PO DAILY 05/23/20 08/22/20 methocarbamol 750 mg tablet 750 mg PO TID PRN tab 05/26/20 08/22/20 diphenhydramine 25 1 tab PO QHS PRN 08/22/20 08/22/20 mg-acetaminophen 500 mg tablet Previous Rx's Medication Instructions Recorded fluticasone propionate 50 2 spray INTRANASAL QDAY #15.8 ml 12/28/19 mcg/actuation nasal spray,suspension nortriptyline 10 mg capsule 10 mg PO QDAY #90 cap 02/24/20 carvedilol 6.25 mg tablet 6.25 mg PO BID #60 tab 05/26/20 naloxone 4 mg/actuation nasal spray 1 spray INTRANASAL Q2-3M PRN #2 ea 06/12/20 naratriptan 2.5 mg tablet 2.5 mg PO Q4HP PRN #60 tab 06/13/20 pregabalin 25 mg capsule 25 mg PO BID #60 cap 06/14/20 levothyroxine 25 mcg tablet See Rx Instructions .ROUTE 07/04/20 .COMPLEX #90 tab pantoprazole 40 mg tablet,delayed See Rx Instructions .ROUTE 07/04/20 release .COMPLEX #90 tab furosemide 20 mg tablet 20 mg PO DAILY #90 tab 07/13/20 lisinopril 2.5 mg tablet 2.5 mg PO DAILY #90 tab 07/13/20 metformin 500 mg tablet See Rx Instructions .ROUTE 08/07/20 .COMPLEX #90 tab hydrocodone 10 mg-acetaminophen 1 tab PO Q6H PRN 30 Days #120 tab 09/12/20 325 mg tablet methadone 5 mg tablet 10 mg PO BID #120 tab 09/12/20 Allergies Allergy/AdvReac Type Severity Reaction Status Date / Time Penicillins AdvReac Unknown Unknown Verified 08/22/20 09:54 Review of Systems ROS ROS Narrative: Narrative: PFSH Narrative Patient History Narrative: Narrative: Medical/Surgical/Family History All Active Problems (Updated 09/15/20 @ 06:49 by Brandyn Ca MD) Dao's esophagus (Chronic) Personal history of breast cancer (Chronic) Cardiomyopathy (Chronic) Chronic pain syndrome (Chronic) Congestive heart failure (Chronic) Depressive disorder (Chronic) Diabetes mellitus, type II (Chronic) Dysmetabolic syndrome X (Chronic) Hyperlipidemia (Chronic) Hypertension, essential (Chronic) Mitral regurgitation (Chronic 07/28/12) Fibromyalgia affecting multiple sites (Chronic) Chronic pain with drug dependence (Chronic) Sinusitis (Chronic) Pharyngitis (Chronic) Recurrent sinusitis (Chronic) Cervical radiculopathy (Chronic) Dermatitis (Chronic) Allergic rhinitis (Chronic) Fibromyalgia (Chronic) Peripheral neuropathy (Chronic) Lumbar back pain (Chronic) Osteopenia (Chronic) Physical exam (Chronic) Hypotension (Chronic) Headache (Chronic) Anxiety (Chronic) Renal failure (Chronic) Hypothyroidism (Chronic) Elevated liver enzymes (Acute) Hypotension (Acute) Elevated serum globulin level (Acute) Dizziness (Acute) Hypotension (Acute) Acute on chronic kidney failure (Acute) Anemia (Acute) 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) Tachycardia (Acute) Acute exacerbation of CHF (congestive heart failure) (Acute) Acute dyspnea (Acute) Abnormal finding of diagnostic imaging (Acute) CKD stage G2/A2, GFR 60-89 and albumin creatinine ratio 30-299 mg/g (Chronic) Pulmonary edema (Acute) Medical History (Updated 09/15/20 @ 06:49 by Brandyn Ca MD) Allergic rhinitis Anxiety Dao's esophagus Cardiomyopathy secondary cardiomyopathy, unspecified related to cancer treatment Cervical radiculopathy Chronic pain syndrome Congestive heart failure Depressive disorder Dermatitis Diabetes mellitus, type II Dysmetabolic syndrome X Fibromyalgia Fracture of ankle, closed 01/2013 Headache Hyperlipidemia Hypertension, essential Hypotension Hypothyroidism Lumbar back pain Mitral regurgitation (07/28/12) Mild Nausea POSSIBLY RELATED TO BYETTA Normal endoscopy Osteopenia Peripheral neuropathy Personal history of breast cancer (12/09/13-Dr Carpenter) Pharyngitis Physical exam Recurrent sinusitis Renal failure Shortness of breath Sinusitis Vomiting POSSIBLY RELATED TO BYETTA Surgical History History of breast surgery LUMPECTOMY History of chemotherapy (12/09/13-Dr Carpenter) History of hysterectomy 1994 Due to fibroids History of radiation therapy (12/09/13-Dr Carpenter) Status post biopsy of skin (09/17/13) Left Lower Extremity: Vesicular dermatitis with lichenoid inflammation Family History unknown Nonruptured cerebral aneurysm Unknown Cardiac disease Essential hypertension Glaucoma Cousin Malignant neoplasm of ovary Resulted in Social History Smoking Status: Never smoker Alcohol Intake Frequency: does not drink Substance Use: does not use Exam Narrative Narrative: Narrative: General Limitations: no limitations Course Vital Signs Vital signs: Vital Signs Temperature 98.4 F 09/15/20 02:02 Pulse Rate 129 H 09/15/20 02:02 Respiratory Rate 16 09/15/20 02:02 Blood Pressure 140/102 09/15/20 02:02 Pulse Oximetry (%) 96 09/15/20 02:02 Temperature 97.8 F 09/15/20 03:59 Pulse Rate 115 H 09/15/20 07:14 Respiratory Rate 30 H 09/15/20 07:14 Blood Pressure 150/110 09/15/20 06:03 Pulse Oximetry (%) 94 09/15/20 07:14 MDM MDM Narrative Medical decision making narrative: I assumed care from Dr. Ca at the change of shift. I evaluated the patient in person at 7:50 AM. She is awake and alert breathing comfortably on supplemental oxygen via nasal cannula. I discussed the test results with the patient. She has significantly elevated BNP and slightly elevated but stable troponins. This appears consistent with decompensated heart failure with minimal troponin elevation due to myocardial strain. She does not have any ongoing chest pain at this time. She is agreeable with the plan for admission and diuresis. We will add nitroglycerin to augment the Lasix she has already received. I discussed the patient's history examination and diagnostic findings with Dr. Lobo, who agrees with the plan of care and accepts admission. Lab Data Lab results reviewed: Yes I reviewed the patient's lab results. Result diagrams: 09/15/20 02:46 09/15/20 02:46 Labs: Lab Results 09/15/20 09/15/20 09/15/20 Range/Units 02:46 02:46 02:46 WBC 7.8 (4.5-11.0) K/mcL RBC 3.64 L (4.00-5.20) M/mcL Hgb 11.9 L (12.0-15.0) g/dL Hct 34.3 L (36.0-48.0) % MCV 94.2 (80.0-100.0) fL MCH 32.7 (26.0-34.0) pg MCHC 34.7 (31.0-36.0) g/dL RDW 15.4 H (11.5-14.5) % Plt Count 105 L (140-440) K/mcL MPV 10.9 H (7.4-10.4) fL Neut % (Auto) 67.9 (38.0-78.0) % Lymph % (Auto) 25.4 (15.0-49.0) % [place]chran % (Auto) 6.4 (1.0-12.0) % Eos % (Auto) 0 (0.0-7.0) % Baso % (Auto) 0.3 (0.0-2.0) % Lymph # (Auto) 1.98 (1.50-4.80) K/mcL [place]ran # (Auto) 0.50 (0.10-0.90) K/mcL Eos # (Auto) 0 (0.00-0.70) K/mcL Baso # (Auto) 0.02 (0.00-0.20) K/mcL Absolute Neutrophils 5.30 (1.80-8.00) K/mcL Sodium 137 (133-145) mmol/L Potassium 4.1 (3.3-5.1) mmol/L Chloride 93 L (96-108) mmol/L Carbon Dioxide 15 L (22-30) mmol/L Anion Gap 29.0 H (8.0-16.0) BUN 17 (8-23) mg/dL Creatinine 1.0 (0.6-1.1) mg/dL GFR Calculation 58 Glucose 159 H (70-105) mg/dL Calcium 9.1 (8.6-10.4) mg/dL Total Bilirubin 1.1 H (0.1-1.0) mg/dL AST 127 H (<32) U/L ALT 97 H (<40) U/L Alkaline Phosphatase 57 (39-117) U/L Troponin T 0.05 H* (<0.03) ng/mL NT-Pro-B Natriuret Pep (<125.0) pg/mL Total Protein 7.6 (5.9-8.4) gm/dL Albumin 4.4 (3.2-5.2) gm/dL Globulin 3.2 (2.2-3.7) gm/dL Albumin/Globulin Ratio 1.4 (1.0-2.3) TSH (0.27-5.01) uIU/mL Free T4 (0.93-1.70) ng/dL 09/15/20 09/15/20 Range/Units 05:44 05:44 WBC (4.5-11.0) K/mcL RBC (4.00-5.20) M/mcL Hgb (12.0-15.0) g/dL Hct (36.0-48.0) % MCV (80.0-100.0) fL MCH (26.0-34.0) pg MCHC (31.0-36.0) g/dL RDW (11.5-14.5) % Plt Count (140-440) K/mcL MPV (7.4-10.4) fL Neut % (Auto) (38.0-78.0) % Lymph % (Auto) (15.0-49.0) % Cochran % (Auto) (1.0-12.0) % Eos % (Auto) (0.0-7.0) % Baso % (Auto) (0.0-2.0) % Lymph # (Auto) (1.50-4.80) K/mcL [place]ran # (Auto) (0.10-0.90) K/mcL Eos # (Auto) (0.00-0.70) K/mcL Baso # (Auto) (0.00-0.20) K/mcL Absolute Neutrophils (1.80-8.00) K/mcL Sodium (133-145) mmol/L Potassium (3.3-5.1) mmol/L Chloride (96-108) mmol/L Carbon Dioxide (22-30) mmol/L Anion Gap (8.0-16.0) BUN (8-23) mg/dL Creatinine (0.6-1.1) mg/dL GFR Calculation Glucose (70-105) mg/dL Calcium (8.6-10.4) mg/dL Total Bilirubin (0.1-1.0) mg/dL AST (<32) U/L ALT (<40) U/L Alkaline Phosphatase (39-117) U/L Troponin T 0.05 H* (<0.03) ng/mL NT-Pro-B Natriuret Pep 5599.0 H (<125.0) pg/mL Total Protein (5.9-8.4) gm/dL Albumin (3.2-5.2) gm/dL Globulin (2.2-3.7) gm/dL Albumin/Globulin Ratio (1.0-2.3) TSH 0.90 (0.27-5.01) uIU/mL Free T4 0.87 L (0.93-1.70) ng/dL ED POC Tests ED POC Tests: KENJI - SARS Antigen Negative Discharge Plan Patient/Caregiver Discharge Instructions Pt seen by [facility] UNIT OPERATOR/PA only: No Clinical Impression: Congestive heart failure, Pulmonary edema Patient Disposition: Xfer As Inpt ([facility]) Condition: Fair Follow up with: Mey Pack ARNP [Primary Care Provider] - Prescriptions: No Action fluticasone propionate [Flonase Allergy Relief] 50 mcg/actuation spray,suspension 2 spray INTRANASAL QDAY Qty: 15.8 RF: 5 nortriptyline 10 mg capsule 10 mg PO QDAY Qty: 90 RF: 2 Narcan 4 mg/actuation spray,non-aerosol 1 spray INTRANASAL Q2-3M PRN (Reason: overmedicated) Qty: 2 RF: 0 naratriptan [Amerge] 2.5 mg tablet 2.5 mg PO Q4HP PRN (Reason: migraine headache) Qty: 60 RF: 0 pregabalin 25 mg capsule 25 mg PO BID Qty: 60 RF: 2 levothyroxine 25 mcg tablet See Rx Instructions .ROUTE .COMPLEX Qty: 90 RF: 0 pantoprazole 40 mg tablet,delayed release (DR/EC) See Rx Instructions .ROUTE .COMPLEX Qty: 90 RF: 0 metformin 500 mg tablet See Rx Instructions .ROUTE .COMPLEX Qty: 90 RF: 0 hydrocodone-acetaminophen 10-325 mg tablet 1 tab PO Q6H PRN (Reason: pain) 30 Days Qty: 120 RF: 0 methadone 5 mg tablet 10 mg PO BID Qty: 120 RF: 0 diphenhydramine-acetaminophen [Tylenol PM Extra Strength] 25-500 mg tablet 1 tab PO QHS PRNRF: 0 furosemide 20 mg tablet 20 mg PO DAILY Qty: 90 RF: 3 lisinopril 2.5 mg tablet 2.5 mg PO DAILY Qty: 90 RF: 3 methocarbamol 750 mg tablet 750 mg PO TID PRN (Reason: neck pain) RF: 0 carvedilol [Coreg] 6.25 mg tablet 6.25 mg PO BID Qty: 60 RF: 2 rosuvastatin 10 mg tablet 10 mg PO DAILY RF: 0
--- NOTE | 2020-09-15 09:26 | Internal Med History&Physical ---
HPI History of Present Illness Patient information: Note initiated : 09/15/20 at 9:18 am Service Date, if different from initiated Date: [] Patient: Dylan Martin a 65 y/o F admitted on for sob. Chief Complaint: [shortness of breath] History of present illness: Ms. Martin is a 65 year old F history of breast cancer and type 2 diabetes insulin independent, presenting with 1 day history of acute onset shortness of breath. Prior similar episode was 2 months ago. She was in her usual state of health until earlier this morning when she had acute onset shortness of breath while resting. She denies any cough, sputum productions, or respiratory wheezings. She have had some chest pain located in her left side chest wall, pressure-like, severity mild to moderate, constant, which resolves spontaneously soon after arriving to the ER. She denies any unintentional weight gain or leg swelling. She is coming of general body weakness. She is complaining of decreased appetite. She denies any fever, chills, or diaphoresis. Vital signs significant for tachycardia with heart rate up to 140s, tachypnea with rate of breathing up to mid 20s, as well as mild hypoxia with oxygen saturations in the low 90s on room air. Labs significant for lack of leukocytosis, BNP elevated to 5599. CT angiogram showing the absence of any pulmonary embolism. It Instead show pulmonary edema consistent with CHF. Constitutional Constitutional: Absent chills, excessive sweating, fatigue, fever(s) and weakness EENT Eyes: Absent blurry vision, change in vision, loss of vision and other visual disturbances Ears: Absent decreased hearing and tinnitus Nose, mouth and throat: Absent abnormal hearing, dry mouth, headache(s), nasal congestion and sore throat Cardiovascular Cardiovascular: Present dyspnea and dyspnea on exertion; Absent chest pain, chest pain at rest, edema, irregular heart rhythm and palpatations Respiratory Respiratory: Present dyspnea and dyspnea on exertion; Absent cough and wheezing Gastrointestinal Gastrointestinal: Absent abdominal pain, constipation, diarrhea, nausea and vomiting Musculoskeletal Musculoskeletal: Absent back pain, deformity, limited range of motion, muscle cramps, muscle weakness and numbness Integumentary Integumentary: Absent lesions, rash and wounds Neurological Neurological: Absent focal weakness, headache(s) and numbness Psychiatric Psychiatric: Absent anxiety, depression and hallucinations PFSH PFSH All Active Problems (Updated 09/15/20 @ 09:26 by Regis Lobo MD) Anemia, normocytic normochromic (Acute) Metabolic acidosis (Acute) T2DM (type 2 diabetes mellitus) (Acute) CHF exacerbation (Acute) Dao's esophagus (Chronic) Personal history of breast cancer (Chronic) Cardiomyopathy (Chronic) Chronic pain syndrome (Chronic) Congestive heart failure (Chronic) Depressive disorder (Chronic) Diabetes mellitus, type II (Chronic) Dysmetabolic syndrome X (Chronic) Hyperlipidemia (Chronic) Hypertension, essential (Chronic) Mitral regurgitation (Chronic 07/28/12) Fibromyalgia affecting multiple sites (Chronic) Chronic pain with drug dependence (Chronic) Sinusitis (Chronic) Pharyngitis (Chronic) Recurrent sinusitis (Chronic) Cervical radiculopathy (Chronic) Dermatitis (Chronic) Allergic rhinitis (Chronic) Fibromyalgia (Chronic) Peripheral neuropathy (Chronic) Lumbar back pain (Chronic) Osteopenia (Chronic) Physical exam (Chronic) Hypotension (Chronic) Headache (Chronic) Anxiety (Chronic) Renal failure (Chronic) Hypothyroidism (Chronic) Elevated liver enzymes (Acute) Hypotension (Acute) Elevated serum globulin level (Acute) Dizziness (Acute) Hypotension (Acute) Acute on chronic kidney failure (Acute) Anemia (Acute) 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) Tachycardia (Acute) Acute exacerbation of CHF (congestive heart failure) (Acute) Acute dyspnea (Acute) Abnormal finding of diagnostic imaging (Acute) CKD stage G2/A2, GFR 60-89 and albumin creatinine ratio 30-299 mg/g (Chronic) Pulmonary edema (Acute) Medical History (Updated 09/15/20 @ 09:26 by Regis Lobo MD) Allergic rhinitis Anxiety Dao's esophagus Cardiomyopathy secondary cardiomyopathy, unspecified related to cancer treatment Cervical radiculopathy Chronic pain syndrome Congestive heart failure Depressive disorder Dermatitis Diabetes mellitus, type II Dysmetabolic syndrome X Fibromyalgia Fracture of ankle, closed 01/2013 Headache Hyperlipidemia Hypertension, essential Hypotension Hypothyroidism Lumbar back pain Mitral regurgitation (07/28/12) Mild Nausea POSSIBLY RELATED TO BYETTA Normal endoscopy Osteopenia Peripheral neuropathy Personal history of breast cancer (12/09/13-Dr Carpenter) Pharyngitis Physical exam Recurrent sinusitis Renal failure Shortness of breath Sinusitis Vomiting POSSIBLY RELATED TO BYETTA Surgical History History of breast surgery LUMPECTOMY History of chemotherapy (12/09/13-Dr Carpenter) History of hysterectomy 1994 Due to fibroids History of radiation therapy (12/09/13-Dr Carpenter) Status post biopsy of skin (09/17/13) Left Lower Extremity: Vesicular dermatitis with lichenoid inflammation Family History unknown Nonruptured cerebral aneurysm Unknown Cardiac disease Essential hypertension Glaucoma Cousin Malignant neoplasm of ovary Resulted in Social History marital status: single occupational status: retired and disabled alcohol intake frequency: does not drink substance use type: does not use MEDS/ALLERGIES Home Medications and Allergies Home Medications Medication Instructions Recorded Confirmed Type fluticasone propionate 50 2 spray INTRANASAL QDAY #15.8 ml 12/28/19 08/22/20 Rx mcg/actuation nasal spray,suspension nortriptyline 10 mg capsule 10 mg PO QDAY #90 cap 02/24/20 08/22/20 Rx rosuvastatin 10 mg PO DAILY 05/23/20 08/22/20 History carvedilol 6.25 mg tablet 6.25 mg PO BID #60 tab 05/26/20 08/22/20 Rx methocarbamol 750 mg tablet 750 mg PO TID PRN tab 05/26/20 08/22/20 History naloxone 4 mg/actuation nasal spray 1 spray INTRANASAL Q2-3M PRN #2 ea 06/12/20 08/22/20 Rx naratriptan 2.5 mg tablet 2.5 mg PO Q4HP PRN #60 tab 06/13/20 08/22/20 Rx pregabalin 25 mg capsule 25 mg PO BID #60 cap 06/14/20 08/22/20 Rx levothyroxine 25 mcg tablet See Rx Instructions .ROUTE 07/04/20 08/22/20 Rx .COMPLEX #90 tab pantoprazole 40 mg tablet,delayed See Rx Instructions .ROUTE 07/04/20 08/22/20 Rx release .COMPLEX #90 tab furosemide 20 mg tablet 20 mg PO DAILY #90 tab 07/13/20 08/22/20 Rx lisinopril 2.5 mg tablet 2.5 mg PO DAILY #90 tab 07/13/20 08/22/20 Rx metformin 500 mg tablet See Rx Instructions .ROUTE 08/07/20 08/22/20 Rx .COMPLEX #90 tab diphenhydramine 25 1 tab PO QHS PRN 08/22/20 08/22/20 History mg-acetaminophen 500 mg tablet hydrocodone 10 mg-acetaminophen 1 tab PO Q6H PRN 30 Days #120 tab 09/12/20 Rx 325 mg tablet methadone 5 mg tablet 10 mg PO BID #120 tab 09/12/20 Rx Allergies Allergy/AdvReac Type Severity Reaction Status Date / Time Penicillins AdvReac Unknown Unknown Verified 08/22/20 09:54 EXAM Constitutional Vitals: Temp Pulse Resp BP Pulse Ox 36.6 C 124 H 27 H 123/97 97 09/15/20 03:59 09/15/20 09:06 09/15/20 09:06 09/15/20 08:00 09/15/20 09:06 General appearance: cooperative and no acute distress Head Head exam: Present atraumatic and normocephalic Eye Eye exam: Present EOMI and PERRL ENT ENT exam: Present mucous membranes moist, normal exam and normal external ear exam Neck Neck exam: Present normal inspection; Absent lymphadenopathy, tenderness and thyromegaly Respiratory Respiratory exam: Absent accessory muscle use, respiratory distress and wheezes Additional comments: Very mild crackles in bilateral bases Cardiovascular Cardiovascular exam: Present tachycardia; Absent normal rate and rhythm and JVD GI/Abdominal GI/Abdominal exam: Present normal bowel sounds and soft; Absent organomegaly and tenderness Extremities Exam Extremities exam: Present full ROM, normal capillary refill, normal inspection and pedal edema; Absent tenderness Neurological Exam Neurological exam: Present alert, CN II-XII intact and oriented X3; Absent motor sensory deficit Psychiatric Psychiatric exam: Present normal affect and normal mood; Absent anxious and depressed Skin Skin exam: Present dry and intact DATA Data Completed and Pending Labs: Labs from last 24 hours 09/15/20 09/15/20 09/15/20 05:44 05:44 02:46 WBC RBC Hgb Hct MCV MCH MCHC RDW Plt Count MPV Neut % (Auto) Lymph % (Auto) Moca % (Auto) Eos % (Auto) Baso % (Auto) Lymph # (Auto) Moca # (Auto) Eos # (Auto) Baso # (Auto) Absolute Neutrophils Sodium Potassium Chloride Carbon Dioxide Anion Gap BUN Creatinine GFR Calculation Glucose Calcium Total Bilirubin AST ALT Alkaline Phosphatase Troponin T 0.05 H* 0.05 H* NT-Pro-B Natriuret Pep 5599.0 H Total Protein Albumin Globulin Albumin/Globulin Ratio TSH 0.90 Free T4 0.87 L 09/15/20 09/15/20 02:46 02:46 WBC 7.8 RBC 3.64 L Hgb 11.9 L Hct 34.3 L MCV 94.2 MCH 32.7 MCHC 34.7 RDW 15.4 H Plt Count 105 L MPV 10.9 H Neut % (Auto) 67.9 Lymph % (Auto) 25.4 Moca % (Auto) 6.4 Eos % (Auto) 0 Baso % (Auto) 0.3 Lymph # (Auto) 1.98 Moca # (Auto) 0.50 Eos # (Auto) 0 Baso # (Auto) 0.02 Absolute Neutrophils 5.30 Sodium 137 Potassium 4.1 Chloride 93 L Carbon Dioxide 15 L Anion Gap 29.0 H BUN 17 Creatinine 1.0 GFR Calculation 58 Glucose 159 H Calcium 9.1 Total Bilirubin 1.1 H AST 127 H ALT 97 H Alkaline Phosphatase 57 Troponin T NT-Pro-B Natriuret Pep Total Protein 7.6 Albumin 4.4 Globulin 3.2 Albumin/Globulin Ratio 1.4 TSH Free T4 Additional Comments Additional comments: ECG interpretations: Ventricular rate: 121 CT interval: 129 QRS interval: 91 QTc: 461 Sinus tachycardia Left axis deviation No ST segments elevation or depression No T waves inversion A/P Assessment and plan (1) Personal history of breast cancer: Status: Chronic Comment: (12/09/13-Dr Carpenter) (2) CHF exacerbation: Status: Acute (3) T2DM (type 2 diabetes mellitus): Status: Acute (4) Metabolic acidosis: Status: Acute (5) Anemia, normocytic normochromic: Status: Acute (6) Hypothyroidism: Status: Chronic Narrative A/P Narrative: 1. CHF exacerbation: Admit to inpatient PCU w/ telemetry Strict intake and output Daily weigh 2L/day fluid restriction Lasix 40mg IV BID Lisinopril 2.5mg PO daily Hold beta kermit during time of acute exacerbation Supplemental oxygen via nasal cannula titrate to achieve spo2 >=92% 2D echocardiogram 2. Metabolic acidosis: Patient has been taking oral hypoglycemics only for her diabetes including Metformin. Hold any oral hypoglycemics for now ABG 3. T2DM: HgA1c Patient has been taking oral hypoglycemics only for her diabetes including Metformin. Hold any oral hypoglycemics for now Low dose correction scale insulin AC HS Accu Chek AC HS Hypoglycemia protocol Diabetic diet 4. Hypothyroidism: Continue thyroid replacement therapy 5. Anemia, normocytic normochromic: Iron panel Folate level Vitamin B12 level cbc w/ auto diff in the morning to trend H/H; transfuse pRBC if hemoglobin <7.0, active bleeding, or symptomatic 6. Troponin-i elevation: Likely 2/2 stress induced by CHF exacerbation ECG does not suggest any signs of acute ischemia Serial troponin-i Nitroglycerin as needed for chest pain GI ppx: not currently indicated DVT ppx: Lovenox Code status: Full Prognosis: guarded Disposition: inpatient PCU Time Spent With Patient Time: Total time spent is greater than 50% in coordination of care (as documented) at patient's floor/unit and/or counseling patient: Total time spent with greater than 50% in coordination of care (as documented) at patient's floor/unit and/or counseling patient:: 25 - 35 minutes
[2020-09-15] MEDS ORDERED: ONDANSETRON 4 MG/2 ML VIAL IV PRN (10:23)
[2020-09-15] MEDS ORDERED: SENNOSIDES 1 TABLET PO PRN (10:23)
[2020-09-15] MEDS ORDERED: LACTULOSE 20 GM/30 ML ORAL.SOL PO PRN (10:23)
[2020-09-15] MEDS ORDERED: morphine 2 MG/ML VIAL IV PRN (10:23)
[2020-09-15] MEDS ORDERED: IPRATROPIUM/ALBUTEROL 3 ML AMPUL.NEB NEB PRN (10:23)
[2020-09-15] MEDS ORDERED: ACETAMINOPHEN 325 MG TABLET PO PRN (10:23)
[2020-09-15] MEDS ORDERED: DEXTROSE 31 GM ORAL.SUSP PO PRN (10:23)
[2020-09-15] MEDS ORDERED: DEXTROSE 50% 50 ML VIAL IV PRN (10:23)
[2020-09-15] MEDS: METOPROLOL TARTRATE 5 MG/5 ML VIAL IV SCH ×2 (11:26→11:40)
[2020-09-15] MEDS ORDERED: METOPROLOL TARTRATE 5 MG/5 ML VIAL IV PRN (11:42)
[2020-09-15] MEDS: ENOXAPARIN 40 MG/0.4 ML SYRINGE SQ SCH (12:52)
[2020-09-15] MEDS: INSULIN LISPRO 1 UNIT/0.01 ML UNIT SQ SCH ×3 (12:52→20:18)
[2020-09-15] MEDS: 0.9 % SODIUM CHLORIDE 10 ML SYRINGE IV SCH ×2 (12:53→21:56)
--- NOTE | 2020-09-15 12:58 | EKG ---
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 Measurements Intervals [place] Rate: 121 P: 58 NV: 129 QRS: -30 QRSD: 91 T: 43 QT: 325 QTc: 461 Interpretive Statements Sinus tachycardia Ventricular premature complex Probable left atrial enlargement Left axis deviation Low voltage, extremity and precordial leads NO PRIOR TRACING FOR COMPARISON Electronically Signed On 09-15-2020 12:57:55 PDT by Miguel Mendoza M.D. /store/[email or web address]/[id number]
[2020-09-15 13:03] LABS: Folate > 20.0 ng/mL (4.2-19.9)
[2020-09-15 13:22] LABS: Iron 371 ug/dL (37-145); TIBC Calculation 388 ug/dl (228-428); Transferrin % Saturation 96 % (15-50)
[2020-09-15] MEDS ORDERED: NEUTRA PHOS 1 PACKET PO PRN (13:51)
[2020-09-15] MEDS ORDERED: NARATRIPTAN 2.5 MG PO PRN (13:51)
[2020-09-15] MEDS ORDERED: ACETAMINOPHEN 650 MG/65 ML BAG IV PRN (13:51)
[2020-09-15] MEDS ORDERED: MAGNESIUM SULFATE 2 GM/50 ML BAG IV PRN (13:51)
[2020-09-15 13:56] LABS: Estimated Average Glucose(eAG) 146 mg/dL; Hemoglobin A1C 6.7 % Hgb (4.0-6.0)
[2020-09-15] MEDS: METHADONE 5 MG TABLET PO SCH ×2 (15:08→20:20)
[2020-09-15] MEDS: FUROSEMIDE 40 MG/4 ML VIAL IV SCH (16:29)
[2020-09-15] MEDS: CARVEDILOL 12.5 MG TABLET PO SCH (17:02)
[2020-09-15] MEDS: POTASSIUM CHLORIDE 10 MEQ TABLET PO SCH (17:02)
[2020-09-15] MEDS: METHOCARBAMOL 750 MG TABLET PO PRN (20:18)
[2020-09-15] MEDS: DOCUSATE SODIUM 100 MG CAPSULE PO SCH (20:18)
[2020-09-15] MEDS: PREGABALIN 25 MG CAPSULE PO SCH (20:18)
[2020-09-15] MEDS: ATORVASTATIN 20 MG TABLET PO SCH (20:18)
[2020-09-15] MEDS: NORTRIPTYLINE 10 MG CAPSULE PO SCH (20:18)
[2020-09-16] MEDS: METHOCARBAMOL 750 MG TABLET PO PRN ×2 (01:26→20:38)
[2020-09-16] MEDS: METHADONE 5 MG TABLET PO SCH ×4 (01:26→20:37)
[2020-09-16] MEDS: 0.9 % SODIUM CHLORIDE 10 ML SYRINGE IV SCH ×3 (05:56→22:00)
[2020-09-16 06:57] LABS: Basophils # (Auto) 0.03 K/mcL (0.00-0.20); Basophils % (Auto) 0.5 % (0.0-2.0); Eosinophils # (Auto) 0.03 K/mcL (0.00-0.70); Eosinophils % (Auto) 0.5 % (0.0-7.0); Hematocrit 35.2 % (36.0-48.0); Hemoglobin 12.7 g/dL (12.0-15.0); Lymphocytes # (Auto) 2.21 K/mcL (1.50-4.80); Lymphocytes % (Auto) 37.3 % (15.0-49.0); Mean Cell Volume 92.9 fL (80.0-100.0); Mean Corpuscular HGB Conc 36.1 g/dL (31.0-36.0); Mean Platelet Volume 11.7 fL (7.4-10.4); Monocytes # (Auto) 0.59 K/mcL (0.10-0.90); Monocytes % (Auto) 9.9 % (1.0-12.0); Neutrophils % (Auto) 51.8 % (38.0-78.0); Platelet Count 93 K/mcL (140-440); RBC 3.79 M/mcL (4.00-5.20); Red Cell Distribution Width 14.5 % (11.5-14.5); WBC 5.9 K/mcL (4.5-11.0)
[2020-09-16 07:03] LABS: ALT/SGPT 73 U/L (<40); AST/SGOT 90 U/L (<32); Albumin 4.2 gm/dL (3.2-5.2); Albumin/Globulin Ratio 1.3 (1.0-2.3); Alkaline Phosphatase 57 U/L (39-117); Bilirubin,Direct 0.5 mg/dL (<0.3); Blood Urea Nitrogen 31 mg/dL (8-23); Carbon Dioxide 28 mmol/L (22-30); Chloride 90 mmol/L (96-108); Globulin 3.2 gm/dL (2.2-3.7); Glomerular Filtration Rate 42; Glucose 153 mg/dL (70-105); Lactate Dehydrogenase 365 U/L (135-225); Phosphorous 2.6 mg/dL (2.5-4.5); Triglycerides 262 mg/dL (<150); Uric Acid 9.1 mg/dL (2.5-8.0)
[2020-09-16] MEDS: INSULIN LISPRO 1 UNIT/0.01 ML UNIT SQ SCH ×4 (08:07→20:54)
[2020-09-16] MEDS: FUROSEMIDE 40 MG/4 ML VIAL IV SCH ×2 (08:15→16:37)
[2020-09-16] MEDS: CARVEDILOL 12.5 MG TABLET PO SCH ×2 (08:16→18:31)
[2020-09-16] MEDS: LISINOPRIL 2.5 MG TABLET PO SCH (08:16)
[2020-09-16] MEDS: ENOXAPARIN 40 MG/0.4 ML SYRINGE SQ SCH (08:16)
[2020-09-16] MEDS: DOCUSATE SODIUM 100 MG CAPSULE PO SCH ×2 (08:16→20:37)
[2020-09-16] MEDS: PANTOPRAZOLE 40 MG TABLET PO SCH (08:16)
[2020-09-16] MEDS: PREGABALIN 25 MG CAPSULE PO SCH ×2 (08:17→20:37)
[2020-09-16] MEDS: LEVOTHYROXINE 25 MCG TABLET PO SCH (08:18)
[2020-09-16] MEDS: POTASSIUM CHLORIDE 10 MEQ TABLET PO SCH ×3 (08:19→16:37)
[2020-09-16] MEDS: POTASSIUM CHLORIDE 20 MEQ/15 ML ML PO PRN ×2 (08:27→16:36)
[2020-09-16] MEDS: FLUTICASONE PROPIONATE SPRAY.NAS NS SCH (08:29)
[2020-09-16] MEDS ORDERED: LISINOPRIL 5 MG TABLET PO SCH (09:00)
--- NOTE | 2020-09-16 09:50 | Internal Med Progress Note ---
SUBJECTIVE Subjective Patient information: Note initiated : 09/16/20 at 9:45 am Service Date, if different from initiated Date: [] Patient: Dylan Martin a 65 y/o F admitted on 09/15/20 for sob. Chief Complaint: [] Interval history: History of present illness: Ms. Martin is a 65 year old F history of breast cancer and type 2 diabetes insulin independent, presenting with 1 day history of acute onset shortness of breath. Prior similar episode was 2 months ago. She was in her usual state of health until earlier this morning when she had acute onset shortness of breath while resting. She denies any cough, sputum productions, or respiratory wheezings. She have had some chest pain located in her left side chest wall, pressure-like, severity mild to moderate, constant, which resolves spontaneously soon after arriving to the ER. She denies any unintentional weight gain or leg swelling. She is coming of general body weakness. She is complaining of decreased appetite. She denies any fever, chills, or diaphoresis. Vital signs significant for tachycardia with heart rate up to 140s, tachypnea with rate of breathing up to mid 20s, as well as mild hypoxia with oxygen saturations in the low 90s on room air. Labs significant for lack of leukocytosis, BNP elevated to 5599. CT angiogram showing the absence of any pulmonary embolism. It Instead show pulmonary edema consistent with CHF. /-patient doing a lot better. Diuresing well. Shortness of breath much improved, orthopnea resolved, right knee abrasion improving. Ongoing therapies, tolerating diet. Possible discharge in 24 hours. No overnight fever chills or concerns per staff Constitutional Vitals: Vital Signs Temp Pulse Resp BP Pulse Ox 97.4 F 94 H 16 135/87 96 09/16/20 08:01 09/16/20 08:01 09/16/20 08:01 09/16/20 08:01 09/16/20 08:01 Period Temp Pulse Resp BP Sys/Loza Pulse Ox Last 24 Hr 97 F-98.7 F 88-128 11-39 115-143/74-103 91-98 Intake and Output 09/15/20 09/16/20 09/16/20 21:59 05:59 13:59 Intake Total 240 120 Output Total 1350 450 Balance -1110 -330 Weight 76.158 kg Alert oriented Nonlabored breathing No anxiety Nondistended abdomen Minimal crackles bases Intake & Output: Intake & Output 09/15/20 09/16/20 09/16/20 21:59 05:59 13:59 Intake Total 240 120 Output Total 1350 450 Balance -1110 -330 Weight 76.158 kg Intake: Oral 240 120 Output: Void Amount 1350 450 Other: Meal Breakfast Percent of Meal Consumed 50% Feeding Ability Independent Urine Appearance Clear Clear Urine Color Pale Pale Urine Odor Normal Stool Size Small Stool Color Brown Stool Consistency Dry and Hard # Bowel Movements 1 OBJ DATA Labs CBC & Chem 7: 09/16/20 05:07 09/16/20 05:10 Labs: Abnormal Lab Results 09/16/20 09/16/20 09/15/20 05:10 05:07 10:38 RBC 3.79 L Hgb Hct 35.2 L MCHC 36.1 H RDW Plt Count 93 L MPV 11.7 H Potassium 3.0 L Chloride 90 L Carbon Dioxide Anion Gap BUN 31 H Creatinine 1.3 H Glucose 153 H Hemoglobin A1c Uric Acid 9.1 H Magnesium 2.7 H Iron Unsat Iron Binding Transferrin % Sat Total Bilirubin 2.0 H Direct Bilirubin 0.5 H GGT 264 H AST 90 H ALT 73 H Lactate Dehydrogenase 365 H Troponin T NT-Pro-B Natriuret Pep Triglycerides 262 H Folate > 20.0 H Free T4 09/15/20 09/15/20 09/15/20 10:38 10:38 05:44 RBC Hgb Hct MCHC RDW Plt Count MPV Potassium Chloride Carbon Dioxide Anion Gap BUN Creatinine Glucose Hemoglobin A1c 6.7 H Uric Acid Magnesium Iron 371 H Unsat Iron Binding < 17 L Transferrin % Sat 96 H Total Bilirubin Direct Bilirubin GGT AST ALT Lactate Dehydrogenase Troponin T 0.04 H* NT-Pro-B Natriuret Pep 5599.0 H Triglycerides Folate Free T4 0.87 L 09/15/20 09/15/20 09/15/20 05:44 02:46 02:46 RBC Hgb Hct MCHC RDW Plt Count MPV Potassium Chloride 93 L Carbon Dioxide 15 L Anion Gap 29.0 H BUN Creatinine Glucose 159 H Hemoglobin A1c Uric Acid Magnesium Iron Unsat Iron Binding Transferrin % Sat Total Bilirubin 1.1 H Direct Bilirubin GGT AST 127 H ALT 97 H Lactate Dehydrogenase Troponin T 0.05 H* 0.05 H* NT-Pro-B Natriuret Pep Triglycerides Folate Free T4 09/15/20 02:46 RBC 3.64 L Hgb 11.9 L Hct 34.3 L MCHC RDW 15.4 H Plt Count 105 L MPV 10.9 H Potassium Chloride Carbon Dioxide Anion Gap BUN Creatinine Glucose Hemoglobin A1c Uric Acid Magnesium Iron Unsat Iron Binding Transferrin % Sat Total Bilirubin Direct Bilirubin GGT AST ALT Lactate Dehydrogenase Troponin T NT-Pro-B Natriuret Pep Triglycerides Folate Free T4 Meds: Medications Acetaminophen (Acetaminophen 325 Mg Tablet) 650 mg PO Q6HP PRN; Protocol PRN Reason: Per Pain Protocol/Fever > 101 Last Admin: 09/15/20 12:52 Dose: 650 mg Documented by: Hydrocodone Bitart/Acetaminophen (Hydrocodone/Apap 10/325mg Tablet) 1 tab PO Q6HP PRN; Protocol PRN Reason: pain Albuterol/Ipratropium (Ipratropium/Albuterol 3 Ml Ampul.Neb) 3 ml NEB Q4HRT PRN PRN Reason: Wheezing Atorvastatin Calcium (Atorvastatin 20 Mg Tablet) 20 mg PO HS [facility] Last Admin: 09/15/20 20:18 Dose: 20 mg Documented by: Carvedilol (Carvedilol 12.5 Mg Tablet) 12.5 mg PO BIDCC [facility] Last Admin: 09/16/20 08:16 Dose: 12.5 mg Documented by: Dextrose (Dextrose 50% 50 Ml Vial) 0 ml IV UD PRN PRN Reason: Hypoglycemia Diagnostic Test (Pha) (Accu-Chek 1 Each Strip) 1 each FS ACHS [facility] Last Admin: 09/16/20 07:45 Dose: 1 each Documented by: Docusate Sodium (Docusate Sodium 100 Mg Capsule) 100 mg PO BID [facility] Last Admin: 09/16/20 08:16 Dose: 100 mg Documented by: Enoxaparin Sodium (Enoxaparin 40 Mg/0.4 Ml Syringe) 40 mg SQ DAILY [facility] Last Admin: 09/16/20 08:16 Dose: 40 mg Documented by: Fluticasone Propionate (Fluticasone Propionate [place]) 2 spray NS DAILY [facility] Last Admin: 09/16/20 08:29 Dose: Not Given Documented by: Furosemide (Furosemide 40 Mg/4 Ml Vial) 40 mg IV BIDD [facility] Last Admin: 09/16/20 08:15 Dose: 40 mg Documented by: Glucose (Dextrose 31 Gm Oral.Susp) 15 gm PO PRN PRN PRN Reason: Hypoglycemia Magnesium Sulfate (Magnesium Sulfate) 2 gm in 50 mls @ 50 mls/hr IV UD PRN PRN Reason: Mag < or = 1.7 Acetaminophen (Ofirmev) 650 mg in 65 mls @ 130 mls/hr IV Q6HP PRN; Protocol PRN Reason: Per Pain Protocol/Fever > 101 Insulin Human Lispro (Insulin Lispro 1 Unit/0.01 Ml Unit) 0 unit SQ [facility]; Protocol Last Admin: 09/16/20 08:07 Dose: 1 units Documented by: Lactulose (Lactulose 20 Gm/30 Ml Oral.Nava) 10 gm PO DAILYP PRN PRN Reason: Constipation Levothyroxine Sodium (Levothyroxine 25 Mcg Tablet) 25 mcg PO ACB [facility] Last Admin: 09/16/20 08:18 Dose: 25 mcg Documented by: Lisinopril (Lisinopril 2.5 Mg Tablet) 2.5 mg PO DAILY [facility] Last Admin: 09/16/20 08:16 Dose: 2.5 mg Documented by: Methadone HCl (Methadone 5 Mg Tablet) 5 mg PO Q6H [facility] Last Admin: 09/16/20 08:27 Dose: 5 mg Documented by: Methocarbamol (Methocarbamol 750 Mg Tablet) 750 mg PO QIDP PRN PRN Reason: Pain Last Admin: 09/16/20 01:26 Dose: 750 mg Documented by: Nortriptyline HCl (Nortriptyline 10 Mg Capsule) 10 mg PO [facility] Last Admin: 09/15/20 20:18 Dose: 10 mg Documented by: Ondansetron HCl (Ondansetron 4 Mg/2 Ml Vial) 4 mg IV Q4HP PRN; Protocol PRN Reason: Nausea And Vomiting Pantoprazole Sodium (Pantoprazole 40 Mg Tablet) 40 mg PO ACB [facility] Last Admin: 09/16/20 08:16 Dose: 40 mg Documented by: Potassium Chloride (Potassium Chloride 10 Meq Tablet) 10 meq PO AC [facility] Last Admin: 09/16/20 08:19 Dose: 10 meq Documented by: Potassium Chloride (Potassium Chloride 20 Meq/15 Ml Ml) 20 meq PO BIDP PRN PRN Reason: K <3.6 Last Admin: 09/16/20 08:27 Dose: 20 meq Documented by: Potassium/Phosphorus/Sodium (Neutra Phos 1 Packet) 2 packet PO DAILYP PRN PRN Reason: PHOS <2.5 Pregabalin (Pregabalin 25 Mg Capsule) 50 mg PO BID [facility] Last Admin: 09/16/20 08:17 Dose: 50 mg Documented by: Senna (Sennosides 1 Tablet) 2 tab PO HSP PRN PRN Reason: Constipation Sodium Chloride (0.9 % Sodium Chloride 10 Ml Syringe) 10 ml IV Q8 [facility] Last Admin: 09/16/20 05:56 Dose: 10 ml Documented by: A/P Narrative A/P Narrative: * Acute decompensated heart failure-clinically improved with aggressive diur esis. On 2 L fluid restriction, continue twice daily Lasix/HAYDER inhibitor/beta-kermit. Echocardiogram pending * Acute hypoxic respiratory failure clinically improved. Now on room air. * Elevated troponin secondary to decompensated heart failure stress related. Clinically improved. * Hypokalemia start replacement. * Mild LINA secondary to aggressive diuresis. Lower diuretic dose * DM type II continue/scale insulin/CC diet * Chronic pain on methadone * History of migraine continue naratriptan * GERD continue PPI * Neuropathy continue Lyrica * HLD on statin * Hypothyroid continue thyroxine * Normocytic anemia-stable * Prophylaxis Lovenox Plan * Lower diuretic dose * PT OT/nutrition support * Replace potassium * Start beta-kermit * Discharge planning Time Spent With Patient Time: Total time spent is greater than 50% in coordination of care (as documented) at patient's floor/unit and/or counseling patient: QUALITY VTE Deep Vein Thrombosis/Pulmonary Embolism Present on Admission: No
[2020-09-16] MEDS: ATORVASTATIN 20 MG TABLET PO SCH (20:38)
[2020-09-16] MEDS: NORTRIPTYLINE 10 MG CAPSULE PO SCH (20:38)
[2020-09-16] MEDS: HYDROcodone/APAP 10/325MG TABLET PO PRN (20:38)
[2020-09-17] MEDS: METHADONE 5 MG TABLET PO SCH ×4 (01:51→20:20)
[2020-09-17] MEDS: HYDROcodone/APAP 10/325MG TABLET PO PRN (01:53)
[2020-09-17] MEDS: 0.9 % SODIUM CHLORIDE 10 ML SYRINGE IV SCH ×3 (05:56→21:50)
[2020-09-17] MEDS: POTASSIUM CHLORIDE 10 MEQ TABLET PO SCH ×3 (07:25→17:33)
[2020-09-17] MEDS: PANTOPRAZOLE 40 MG TABLET PO SCH (07:25)
[2020-09-17] MEDS: CARVEDILOL 12.5 MG TABLET PO SCH (07:26)
[2020-09-17] MEDS: LEVOTHYROXINE 25 MCG TABLET PO SCH (07:26)
[2020-09-17] MEDS: FUROSEMIDE 40 MG/4 ML VIAL IV SCH (07:27)
[2020-09-17] MEDS: INSULIN LISPRO 1 UNIT/0.01 ML UNIT SQ SCH ×4 (07:41→20:21)
[2020-09-17] MEDS ORDERED: metFORMIN 500 MG TABLET PO SCH (08:00)
[2020-09-17 08:24] LABS: ALT/SGPT 62 U/L (<40); AST/SGOT 89 U/L (<32); Albumin/Globulin Ratio 1.3 (1.0-2.3); Alkaline Phosphatase 54 U/L (39-117); Bilirubin,Direct 0.4 mg/dL (<0.3); Bilirubin,Total 1.5 mg/dL (0.1-1.0); Blood Urea Nitrogen 47 mg/dL (8-23); Calcium 9.1 mg/dL (8.6-10.4); Carbon Dioxide 26 mmol/L (22-30); Chloride 94 mmol/L (96-108); Globulin 3.1 gm/dL (2.2-3.7); Glomerular Filtration Rate 36; Glucose 149 mg/dL (70-105); Lactate Dehydrogenase 354 U/L (135-225); Phosphorous 3.5 mg/dL (2.5-4.5); Triglycerides 170 mg/dL (<150); Uric Acid 10.2 mg/dL (2.5-8.0)
--- NOTE | 2020-09-17 08:36 | Discharge Summary ---
Discharge Provider Provider Patient information: Note initiated : 09/18/20 at 8:31 am Service Date, if different from initiated Date: [] Patient: Dylan Martin 65 y/o F admitted on 09/15/20 for sob. Chief Complaint: [] Discharge diagnosis * Acute decompensated systolic heart failure-clinically improving with aggressive diuresis. Well compensated and discharging home. Continue beta- kermit/HAYDER inhibitor/diuretics. Recommend follow-up with cardiology on discharge * Acute kidney injury secondary to overdiuresis/HAYDER inhibitor. Creatinine up from 1.1-1.5. Continue monitoring. DC HAYDER inhibitor, lower diuretic dose. Change Coreg 6.25 twice daily * Acute hypoxic respiratory failure clinically improved. Now on room air. * Elevated troponin secondary to decompensated heart failure stress related. Clinically improved. * Hypokalemia resolved * DM type II continue/scale insulin/CC diet * Chronic pain on methadone * History of migraine continue naratriptan * GERD continue PPI * Neuropathy continue Lyrica * HLD on statin * Hypothyroid continue thyroxine * Normocytic anemia-stable Brief hospital course History of present illness: Ms. Martin is a 65 year old F history of breast cancer and type 2 diabetes insulin independent, presenting with 1 day history of acute onset shortness of breath. Prior similar episode was 2 months ago. She was in her usual state of health until earlier this morning when she had acute onset shortness of breath while resting. She denies any cough, sputum productions, or respiratory wheezings. She have had some chest pain located in her left side chest wall, pressure-like, severity mild to moderate, constant, which resolves spontaneously soon after arriving to the ER. She denies any unintentional weight gain or leg swelling. She is coming of general body weakness. She is complaining of decreased appetite. She denies any fever, chills, or diaphoresis. Vital signs significant for tachycardia with heart rate up to 140s, tachypnea with rate of breathing up to mid 20s, as well as mild hypoxia with oxygen saturations in the low 90s on room air. Labs significant for lack of leukocytosis, BNP elevated to 5599. CT angiogram showing the absence of any pulmonary embolism. It Instead show pulmonary edema consistent with CHF. 09/16-patient doing a lot better. Diuresing well. Shortness of breath much improved, orthopnea resolved, right knee abrasion improving. Ongoing therapies, tolerating diet. Possible discharge in 24 hours. No overnight fever chills or concerns per staff 09/17-creatinine at 1.5. Diuretics dose lowered. Blood pressure down to 80s. 250 bolus NS, hold HAYDER inhibitor, lower Coreg dose, switch IV to oral Lasix, monitor for 24 to 40 hours. If worsening creatinine consult nephrology. Hold discharge until clinically stable. 09/18-patient doing a lot better. Creatinine down to 1.2. No overnight events. Currently on room air. Sats stable. Sodium 135, bilirubin down to 1.2. Feels a lot better. Discharging with advised to continue follow-up with PCP.Echocardiogram LVEF 40 to 45%. Continue beta-kermit/HAYDER inhibitor/diuretics, recommend follow-up with cardiology on discharge. Date of admission: 09/15/20 10:12 Discharge date: 09/18/20 Primary care physician: Mey Pack Consults: 09/15/20 Consult to Physician [CONS] Stat Comment: Consulting Provider: Regis Lobo Reason For Exam: Physician to Consult 09/15/20 07:57 Consult to Physician [CONS] Stat Comment: Consulting Provider: Regis Lobo Reason For Exam: Physician to Consult Discharge Meds Discharge Medications Home Medications fluticasone propionate 50 mcg/actuation nasal spray,suspension 2 spray INTRANASAL QDAY #15.8 ml 12/28/19 [Rx Confirmed 09/15/20 Last Taken 09/13/20] rosuvastatin 10 mg PO HS 05/23/20 [History Confirmed 09/15/20 Last Taken 09/13/20] methocarbamol 750 mg tablet 750 mg PO QID PRN tab 05/26/20 [History Confirmed 09/15/20 Last Taken 09/13/20] naloxone 4 mg/actuation nasal spray 1 spray INTRANASAL Q2-3M PRN #2 ea 06/12/20 [Rx Confirmed 09/15/20 Last Taken 09/14/20] naratriptan 2.5 mg tablet 2.5 mg PO Q4HP PRN #60 tab 06/13/20 [Rx Confirmed 09/15/20 Last Taken 09/10/20] furosemide 20 mg tablet 20 mg PO DAILY #90 tab 07/13/20 [Rx Confirmed 09/15/20 Last Taken 09/14/20] hydrocodone 10 mg-acetaminophen 325 mg tablet 1 tab PO Q6H PRN 30 Days #120 tab 09/12/20 [Rx Confirmed 09/15/20 Last Taken 09/13/20] levothyroxine 25 mcg PO DAILY 09/15/20 [History Confirmed 09/15/20 Last Taken 09/13/20] metformin 500 mg PO DAILY 09/15/20 [History Confirmed 09/15/20 Last Taken 09/14/20] methadone 5 mg PO Q6H 09/15/20 [History Confirmed 09/15/20 Last Taken 09/13/20] nortriptyline 10 mg PO HS 09/15/20 [History Confirmed 09/15/20 Last Taken 09/13/20] pantoprazole 40 mg PO DAILY 09/15/20 [History Confirmed 09/15/20 Last Taken 09/14/20] potassium chloride 8 meq PO AC 09/15/20 [History Confirmed 09/15/20 Last Taken 09/14/20] pregabalin 50 mg PO BID 09/15/20 [History Confirmed 09/15/20 Last Taken 09/14/20] carvedilol 6.25 mg PO BIDCC #30 tab 09/18/20 [Rx Last Taken Unknown] lisinopril 2.5 mg PO DAILY #30 tab 09/18/20 [Rx Last Taken Unknown] COURSE Hospital Course Hospital course: . Discharge diagnosis: . Time Spent with Patient Time attestation: Total time spent providing and/or coordinating discharge services: EXAM Constitutional Vitals: Temp Pulse Resp BP Pulse Ox 97.9 F 88 16 134/82 97 09/17/20 08:00 09/17/20 08:00 09/17/20 08:00 09/17/20 08:00 09/17/20 08:00 Discharge Data Data Completed and Pending Labs on day of discharge: Labs from last 24 hours 09/17/20 05:08 Sodium 132 L Potassium 3.7 Chloride 94 L Carbon Dioxide 26 Anion Gap 12.0 BUN 47 H Creatinine 1.5 H GFR Calculation 36 Glucose 149 H Uric Acid 10.2 H Calcium 9.1 Phosphorus 3.5 Magnesium 1.8 Total Bilirubin 1.5 H Direct Bilirubin 0.4 H GGT 261 H AST 89 H ALT 62 H Alkaline Phosphatase 54 Lactate Dehydrogenase 354 H Total Protein 7.1 Albumin 4.0 Globulin 3.1 Albumin/Globulin Ratio 1.3 Triglycerides 170 H Discharge Plan Patient/Caregiver Discharge Instructions Activity: increase activity as tolerated Diet: Low Sodium (2gm) Activity Restrictions/Additional Instructions: Follow-up PCP in [5] days Recommend follow-up with cardiology in 1 week I recommend primary care physician to check CBC BMP UA as a posthospital follow- up in 1 week. Continue diuretics/medications as advised below Daily weights measurements Take additional dose of diuretics for 3 days if weight gain over 4 pounds over baseline or worsening SOB and call primary care physician if inadequate response to diuretics. All meals on chair sitting upright at 90 degrees to prevent aspiration Return to ER if concerning symptoms noted including worsening shortness of breath, fever chills, neurological changes, diarrhea, bleeding Reviewed risk and side effect profile of medications including antibiotics. Side effect may include mild to severe reaction including hypotension/dizzi ness/dehydration and in rare instances even which can be prevented by close follow-up with PCP and monitoring for side effects Continue diet and activity as advised Discussed importance of medication adherence Please review medication list with patient prior to discharge Please schedule follow-up with PCP/Providers prior to discharge and provide printouts Prescriptions: New carvedilol 6.25 mg Tablet 6.25 mg PO BIDCC Qty: 30 RF: 0 Continued fluticasone propionate [Flonase Allergy Relief] 50 mcg/actuation spray,suspension 2 spray INTRANASAL QDAY Qty: 15.8 RF: 5 Narcan 4 mg/actuation spray,non-aerosol 1 spray INTRANASAL Q2-3M PRN (Reason: overmedicated) Qty: 2 RF: 0 naratriptan [Amerge] 2.5 mg tablet 2.5 mg PO Q4HP PRN (Reason: migraine headache) Qty: 60 RF: 0 hydrocodone-acetaminophen 10-325 mg tablet 1 tab PO Q6H PRN (Reason: pain) 30 Days Qty: 120 RF: 0 furosemide 20 mg tablet 20 mg PO DAILY Qty: 90 RF: 3 methocarbamol 750 mg tablet 750 mg PO QID PRN (Reason: Pain) RF: 0 rosuvastatin 10 mg tablet 10 mg PO HS RF: 0 pantoprazole 40 mg tablet,delayed release (DR/EC) 40 mg PO DAILY RF: 0 potassium chloride 8 mEq Tablet Extended Release 8 meq PO AC RF: 0 pregabalin 50 mg capsule 50 mg PO BID RF: 0 metformin 500 mg tablet 500 mg PO DAILY RF: 0 levothyroxine 25 mcg tablet 25 mcg PO DAILY RF: 0 methadone 5 mg tablet 5 mg PO Q6H RF: 0 nortriptyline 10 mg capsule 10 mg PO HS RF: 0 Changed lisinopril 5 mg tablet 2.5 mg PO DAILY Qty: 30 RF: 0 Discontinued carvedilol 12.5 mg tablet 12.5 mg PO BIDAC RF: 0 Follow Up Plan Follow up with: Mey Pack ARNP [Primary Care Provider] - Patient Disposition: Home, Self-Care Prognosis: Fair Rehab Potential: Fair I certify that the patient requires SNF services: No Overall status at discharge: patient is progressing back to baseline Discharge Orders: Discharge Order (Routine); Ordered 09/18/20 Ordered By: Tanner PETERSON VTE Deep Vein Thrombosis/Pulmonary Embolism Present on Admission: No
[2020-09-17] MEDS: ENOXAPARIN 40 MG/0.4 ML SYRINGE SQ SCH (09:25)
[2020-09-17] MEDS: LISINOPRIL 2.5 MG TABLET PO SCH (09:25)
[2020-09-17] MEDS: PREGABALIN 25 MG CAPSULE PO SCH ×2 (09:25→20:20)
[2020-09-17] MEDS: DOCUSATE SODIUM 100 MG CAPSULE PO SCH ×2 (09:25→20:20)
[2020-09-17] MEDS: FLUTICASONE PROPIONATE SPRAY.NAS NS SCH (09:26)
[2020-09-17] MEDS ORDERED: ACETAMINOPHEN 325 MG TABLET PO PRN (10:26)
[2020-09-17] MEDS ORDERED: DEXTROSE 31 GM ORAL.SUSP PO PRN (10:26)
[2020-09-17] MEDS ORDERED: ACETAMINOPHEN 650 MG/65 ML BAG IV PRN (10:26)
[2020-09-17] MEDS ORDERED: NEUTRA PHOS 1 PACKET PO PRN (10:26)
[2020-09-17] MEDS ORDERED: METHOCARBAMOL 750 MG TABLET PO PRN (10:26)
[2020-09-17] MEDS ORDERED: ONDANSETRON 4 MG/2 ML VIAL IV PRN (10:26)
[2020-09-17] MEDS ORDERED: DEXTROSE 50% 50 ML VIAL IV PRN (10:26)
[2020-09-17] MEDS ORDERED: POTASSIUM CHLORIDE 20 MEQ/15 ML ML PO PRN (10:26)
[2020-09-17] MEDS ORDERED: IOPAMIDOL 100 ML BOTTLE IV ONE (10:26)
[2020-09-17] MEDS ORDERED: SENNOSIDES 1 TABLET PO PRN (10:26)
[2020-09-17] MEDS ORDERED: MAGNESIUM SULFATE 2 GM/50 ML BAG IV PRN (10:26)
[2020-09-17] MEDS ORDERED: LACTULOSE 20 GM/30 ML ORAL.SOL PO PRN (10:26)
[2020-09-17] MEDS ORDERED: IPRATROPIUM/ALBUTEROL 3 ML AMPUL.NEB NEB PRN (10:26)
--- NOTE | 2020-09-17 11:12 | Internal Med Progress Note ---
SUBJECTIVE Subjective Patient information: Note initiated : 09/17/20 at 11:08 am Service Date, if different from initiated Date: [] Patient: Dylan Martin a 65 y/o F admitted on 09/15/20 for sob. Chief Complaint: [] Interval history: History of present illness: Ms. Martin is a 65 year old F history of breast cancer and type 2 diabetes insulin independent, presenting with 1 day history of acute onset shortness of breath. Prior similar episode was 2 months ago. She was in her usual state of health until earlier this morning when she had acute onset shortness of breath while resting. She denies any cough, sputum productions, or respiratory wheezings. She have had some chest pain located in her left side chest wall, pressure-like, severity mild to moderate, constant, which resolves spontaneously soon after arriving to the ER. She denies any unintentional weight gain or leg swelling. She is coming of general body weakness. She is complaining of decreased appetite. She denies any fever, chills, or diaphoresis. Vital signs significant for tachycardia with heart rate up to 140s, tachypnea with rate of breathing up to mid 20s, as well as mild hypoxia with oxygen saturations in the low 90s on room air. Labs significant for lack of leukocytosis, BNP elevated [place] 5599. CT angiogram showing the absence of any pulmonary embolism. It Instead show pulmonary edema consistent with CHF. 09/16-patient doing a lot better. Diuresing well. Shortness of breath much improved, orthopnea resolved, right knee abrasion improving. Ongoing therapies, tolerating diet. Possible discharge in 24 hours. No overnight fever chills or concerns per staff 09/17-creatinine at 1.5. Diuretics dose lowered. Blood pressure down to 80s. 250 bolus NS, hold HAYDER inhibitor, lower Coreg dose, switch IV to oral Lasix, monitor for 24 to 40 hours. If worsening creatinine consult nephrology. Hold discharge until clinically stable. Constitutional Vitals: Vital Signs Temp Pulse Resp BP Pulse Ox 97.9 F 89 20 92/69 95 09/17/20 08:00 09/17/20 10:01 09/17/20 10:01 09/17/20 10:01 09/17/20 10:01 Period Temp Pulse Resp BP Sys/Loza Pulse Ox Last 24 Hr 97.2 F-98.3 F 71-99 14-25 90-134/62-85 91-99 Intake and Output 09/16/20 09/17/20 09/17/20 21:59 05:59 13:59 Intake Total 720 Output Total 125 450 Balance -125 270 Weight 75.795 kg alert oriented Nonlabored breathing No anxiety Nondistended abdomen No lymphedema Intake & Output: Intake & Output 09/16/20 09/17/20 09/17/20 21:59 05:59 13:59 Intake Total 720 Output Total 125 450 Balance -125 270 Weight 75.795 kg Intake: Oral 720 Output: Void Amount 125 450 Other: Meal Lunch Breakfast Percent of Meal Consumed 75% 100% Feeding Ability Independent Independent Urine Appearance Clear Clear Urine Color Dark Yellow Dark Yellow Urine Odor Normal OBJ DATA Labs CBC & Chem 7: 09/16/20 05:07 09/17/20 05:08 Labs: Abnormal Lab Results 09/17/20 09/16/20 09/16/20 05:08 05:10 05:07 RBC 3.79 L Hgb Hct 35.2 L MCHC 36.1 H RDW Plt Count 93 L MPV 11.7 H Sodium 132 L Potassium 3.0 L Chloride 94 L 90 L Carbon Dioxide Anion Gap BUN 47 H 31 H Creatinine 1.5 H 1.3 H Glucose 149 H 153 H Hemoglobin A1c Uric Acid 10.2 H 9.1 H Magnesium 2.7 H Iron Unsat Iron Binding Transferrin % Sat Total Bilirubin 1.5 H 2.0 H Direct Bilirubin 0.4 H 0.5 H GGT 261 H 264 H AST 89 H 90 H ALT 62 H 73 H Lactate Dehydrogenase 354 H 365 H Troponin T NT-Pro-B Natriuret Pep Triglycerides 170 H 262 H Folate Free T4 09/15/20 09/15/20 09/15/20 10:38 10:38 10:38 RBC Hgb Hct MCHC RDW Plt Count MPV Sodium Potassium Chloride Carbon Dioxide Anion Gap BUN Creatinine Glucose Hemoglobin A1c 6.7 H Uric Acid Magnesium Iron 371 H Unsat Iron Binding < 17 L Transferrin % Sat 96 H Total Bilirubin Direct Bilirubin GGT AST ALT Lactate Dehydrogenase Troponin T 0.04 H* NT-Pro-B Natriuret Pep Triglycerides Folate > 20.0 H Free T4 09/15/20 09/15/20 09/15/20 05:44 05:44 02:46 RBC Hgb Hct MCHC RDW Plt Count MPV Sodium Potassium Chloride Carbon Dioxide Anion Gap BUN Creatinine Glucose Hemoglobin A1c Uric Acid Magnesium Iron Unsat Iron Binding Transferrin % Sat Total Bilirubin Direct Bilirubin GGT AST ALT Lactate Dehydrogenase Troponin T 0.05 H* 0.05 H* NT-Pro-B Natriuret Pep 5599.0 H Triglycerides Folate Free T4 0.87 L 09/15/20 09/15/20 02:46 02:46 RBC 3.64 L Hgb 11.9 L Hct 34.3 L MCHC RDW 15.4 H Plt Count 105 L MPV 10.9 H Sodium Potassium Chloride 93 L Carbon Dioxide 15 L Anion Gap 29.0 H BUN Creatinine Glucose 159 H Hemoglobin A1c Uric Acid Magnesium Iron Unsat Iron Binding Transferrin % Sat Total Bilirubin 1.1 H Direct Bilirubin GGT AST 127 H ALT 97 H Lactate Dehydrogenase Troponin T NT-Pro-B Natriuret Pep Triglycerides Folate Free T4 Meds: Medications Acetaminophen (Acetaminophen 325 Mg Tablet) 650 mg PO Q6HP PRN; Protocol PRN Reason: Per Pain Protocol/Fever > 101 Hydrocodone Bitart/Acetaminophen (Hydrocodone/Apap 10/325mg Tablet) 1 tab PO Q6HP PRN; Protocol PRN Reason: pain Albuterol/Ipratropium (Ipratropium/Albuterol 3 Ml Ampul.Neb) 3 ml NEB Q4HRT PRN PRN Reason: Wheezing Atorvastatin Calcium (Atorvastatin 20 Mg Tablet) 20 mg PO HS DAVID Carvedilol (Carvedilol 12.5 Mg Tablet) 6.25 mg PO BIDCC DAVID Dextrose (Dextrose 50% 50 Ml Vial) 0 ml IV UD PRN PRN Reason: Hypoglycemia Diagnostic Test (Pha) (Accu-Chek 1 Each Strip) 1 each FS ACHS DAVID Docusate Sodium (Docusate Sodium 100 Mg Capsule) 100 mg PO BID DAVID Enoxaparin Sodium (Enoxaparin 40 Mg/0.4 Ml Syringe) 40 mg SQ DAILY DAVID Fluticasone Propionate (Fluticasone Propionate [place]) 2 spray NS DAILY DAVID Furosemide (Furosemide 40 Mg/4 Ml Vial) 20 mg IV BIDD DAVID Glucose (Dextrose 31 Gm Oral.Susp) 15 gm PO PRN PRN PRN Reason: Hypoglycemia Magnesium Sulfate (Magnesium Sulfate) 2 gm in 50 mls @ 50 mls/hr IV UD PRN PRN Reason: Mag < or = 1.7 Acetaminophen (Ofirmev) 650 mg in 65 mls @ 130 mls/hr IV Q6HP PRN; Protocol PRN Reason: Per Pain Protocol/Fever > 101 Insulin Human Lispro (Insulin Lispro 1 Unit/0.01 Ml Unit) 0 unit SQ ACHS DAVID; Protocol Lactulose (Lactulose 20 Gm/30 Ml Oral.Nava) 10 gm PO DAILYP PRN PRN Reason: Constipation Levothyroxine Sodium (Levothyroxine 25 Mcg Tablet) 25 mcg PO ACB DAVID Lisinopril (Lisinopril 2.5 Mg Tablet) 2.5 mg PO DAILY DAVID Metformin HCl (Metformin 500 Mg Tablet) 500 mg PO QAMCC DAVID Methadone HCl (Methadone 5 Mg Tablet) 5 mg PO Q6H DAVID Methocarbamol (Methocarbamol 750 Mg Tablet) 750 mg PO QIDP PRN PRN Reason: Pain Nortriptyline HCl (Nortriptyline 10 Mg Capsule) 10 mg PO HS DAVID Ondansetron HCl (Ondansetron 4 Mg/2 Ml Vial) 4 mg IV Q4HP PRN; Protocol PRN Reason: Nausea And Vomiting Pantoprazole Sodium (Pantoprazole 40 Mg Tablet) 40 mg PO ACB DAVID Potassium Chloride (Potassium Chloride 10 Meq Tablet) 10 meq PO AC DAVID Potassium Chloride (Potassium Chloride 20 Meq/15 Ml Ml) 20 meq PO BIDP PRN PRN Reason: K <3.6 Potassium/Phosphorus/Sodium (Neutra Phos 1 Packet) 2 packet PO DAILYP PRN PRN Reason: PHOS <2.5 Pregabalin (Pregabalin 25 Mg Capsule) 50 mg PO BID DAVID Senna (Sennosides 1 Tablet) 2 tab PO HSP PRN PRN Reason: Constipation Sodium Chloride (0.9 % Sodium Chloride 10 Ml Syringe) 10 ml IV Q8 DAVID A/P Narrative A/P Narrative: * Acute decompensated heart failure-clinically improved with aggressive diuresis. Continue fluid restriction, lower Coreg dose to 6.25 twice daily, hold HAYDER inhibitor for 24 hours, transition to oral Lasix * Acute kidney injury secondary to overdiuresis/HAYDER inhibitor. Creatinine up f rom 1.1-1.5. Continue monitoring. DC HAYDER inhibitor, lower diuretic dose. Change Coreg 6.25 twice daily * Acute hypoxic respiratory failure clinically improved. Now on room air. * Elevated troponin secondary to decompensated heart failure stress related. Clinically improved. * Hypokalemia improving with replacement * DM type II continue/scale insulin/CC diet * Chronic pain on methadone * History of migraine continue naratriptan * GERD continue PPI * Neuropathy continue Lyrica * HLD on statin * Hypothyroid continue thyroxine * Normocytic anemia-stable * Prophylaxis Lovenox Plan * Switch to oral diuretics * Lower Coreg dose, hold lisinopril for 24 hours * Fluid challenge to 50 cc * PT OT/nutrition support * Discharge once clinically stable Time Spent With Patient Time: Total time spent is greater than 50% in coordination of care (as documented) at patient's floor/unit and/or counseling patient: QUALITY VTE Deep Vein Thrombosis/Pulmonary Embolism Present on Admission: No
[2020-09-17] MEDS ORDERED: 0.9 % SODIUM CHLORIDE 250 ML IV ONE (11:33)
[2020-09-17] MEDS: FUROSEMIDE 20 MG TABLET PO SCH (14:53)
[2020-09-17] MEDS ORDERED: FUROSEMIDE 40 MG/4 ML VIAL IV SCH (16:00)
[2020-09-17] MEDS ORDERED: CARVEDILOL 12.5 MG TABLET PO SCH (17:30)
[2020-09-17] MEDS: CARVEDILOL 6.25 MG TABLET PO SCH (17:33)
[2020-09-17] MEDS ORDERED: NORTRIPTYLINE 10 MG CAPSULE PO SCH (21:00)
[2020-09-17] MEDS ORDERED: ATORVASTATIN 20 MG TABLET PO SCH (21:00)
[2020-09-18] MEDS: HYDROcodone/APAP 10/325MG TABLET PO PRN ×2 (00:17→09:17)
[2020-09-18] MEDS: METHADONE 5 MG TABLET PO SCH ×3 (02:04→14:25)
[2020-09-18] MEDS: 0.9 % SODIUM CHLORIDE 10 ML SYRINGE IV SCH ×2 (05:25→15:26)
[2020-09-18] MEDS ORDERED: PANTOPRAZOLE 40 MG TABLET PO SCH (07:30)
[2020-09-18] MEDS ORDERED: LEVOTHYROXINE 25 MCG TABLET PO SCH (07:30)
[2020-09-18] MEDS ORDERED: metFORMIN 500 MG TABLET PO SCH (08:00)
[2020-09-18 08:05] LABS: ALT/SGPT 77 U/L (<40); AST/SGOT 124 U/L (<32); Albumin 3.8 gm/dL (3.2-5.2); Albumin/Globulin Ratio 1.2 (1.0-2.3); Alkaline Phosphatase 52 U/L (39-117); Bilirubin,Direct 0.4 mg/dL (<0.3); Bilirubin,Total 1.2 mg/dL (0.1-1.0); Blood Urea Nitrogen 41 mg/dL (8-23); Calcium 9.2 mg/dL (8.6-10.4); Carbon Dioxide 26 mmol/L (22-30); Chloride 97 mmol/L (96-108); Globulin 3.1 gm/dL (2.2-3.7); Glomerular Filtration Rate 47; Glucose 149 mg/dL (70-105); Lactate Dehydrogenase 314 U/L (135-225); Triglycerides 70 mg/dL (<150); Uric Acid 8.6 mg/dL (2.5-8.0)
[2020-09-18] MEDS: FUROSEMIDE 20 MG TABLET PO SCH (08:16)
[2020-09-18] MEDS: POTASSIUM CHLORIDE 10 MEQ TABLET PO SCH ×2 (08:16→12:59)
[2020-09-18] MEDS: CARVEDILOL 6.25 MG TABLET PO SCH (08:17)
[2020-09-18] MEDS: INSULIN LISPRO 1 UNIT/0.01 ML UNIT SQ SCH ×2 (08:17→12:03)
[2020-09-18] MEDS ORDERED: LISINOPRIL 2.5 MG TABLET PO SCH ×2 (09:00)
[2020-09-18] MEDS ORDERED: FLUTICASONE PROPIONATE SPRAY.NAS NS SCH (09:00)
[2020-09-18] MEDS ORDERED: ENOXAPARIN 40 MG/0.4 ML SYRINGE SQ SCH (09:00)
[2020-09-18] MEDS: PREGABALIN 25 MG CAPSULE PO SCH (09:06)
[2020-09-18] MEDS: DOCUSATE SODIUM 100 MG CAPSULE PO SCH (09:09)
== END 2020-09-18 16:30 | disposition home or self-care (01) | DRG 291 ==
LOC: ED 02:00 → ICU 10:12 → MEDSUR 09-17 08:46
PROVIDERS: ADMIT Internal Medicine; ATTEND Internal Medicine

== ENCOUNTER 2022-08-14 18:42 | Observation (INO) ==
[2022-08-14 19:21] LABS: POC Calcium, Ionized 1.18 (1.16-1.32); POC Creatinine 1.7 (0.6-1.2)
[2022-08-14] MEDS ORDERED: LACTATED RINGERS 1,000 ML IV ONE (19:38)
[2022-08-14 20:05] LABS: Basophils # (Auto) 0.06 K/mcL (0.00-0.30); Basophils % (Auto) 0.6 % (0.0-2.0); Eosinophils # (Auto) 0.08 K/mcL (0.00-0.70); Eosinophils % (Auto) 0.8 % (0.0-7.0); Hematocrit 38.8 % (34.1-44.9); Lymphocytes # (Auto) 3.09 K/mcL (1.50-4.80); Lymphocytes % (Auto) 29.9 % (15.5-49.0); Mean Cell Volume 95.3 fL (80.0-100.0); Mean Corpuscular HGB Conc 33.5 g/dL (31.0-36.0); Mean Platelet Volume 11.3 fL (8.8-12.5); Monocytes # (Auto) 1.28 K/mcL (0.10-0.90); Monocytes % (Auto) 12.4 % (1.0-12.0); Neutrophils % (Auto) 54.7 % (38.0-78.0); Platelet Count 271 K/mcL (140-440); RBC 4.07 M/mcL (3.59-5.38); Red Cell Distribution Width 13.5 % (11.5-14.5); WBC 10.4 K/mcL (4.5-11.0)
[2022-08-14 21:40] LABS: ALT/SGPT 37 U/L (<40); AST/SGOT 31 U/L (<32); Albumin 4.2 gm/dL (3.2-5.2); Alkaline Phosphatase 55 U/L (39-117); Bilirubin,Direct < 0.2 mg/dL (0-0.3); Bilirubin,Total 0.5 mg/dL (0.1-1.0); Globulin 3.1 gm/dL (2.2-3.7)
[2022-08-14 22:38] LABS: Alcohol, Blood < 10.0 mg/dL; Alcohol,Blood < 0.010 gm/dL (<0.010)
[2022-08-14 23:12] LABS: Appearance,Urine HAZY (Clear); Bilirubin,Urine Negative (Negative); Color,Urine Yellow; Culture Indicated,Urine No; Glucose,Urine (UA) Negative (Negative); Ketones,Urine Negative (Negative); Leukocyte Esterase,Urine Negative /uL (Negative); Nitrate,Urine Negative (Negative); Protein,Urine Negative (Negative); Specific Gravity,Urine 1.012 (1.000-1.035); Urine Blood Negative (Negative); Urobilinogen,Urine Negative
[2022-08-14 23:41] LABS: Amphetamine Screen,Urine None detected; Barbiturate Screen,Urine None detected; Benzodiazepines Screen,Urine None detected; Cannabinoid Screen,Urine None detected; Cocaine Screen,Urine None detected; Opiate Screen,Urine Suspect Positive; Oxycodone, Urine Screen None detected; Phencyclidine Screen,Urine None detected
[2022-08-15] MEDS ORDERED: ONDANSETRON 4 MG/2 ML VIAL IV ONE
[2022-08-15] MEDS: NALOXONE HCL 0.4 MG/ML VIAL IV PRN ×2 (00:05→00:10)
--- NOTE | 2022-08-15 00:16 | Emergency Department Note ---
HPI General Chief complaint: Altered Mental Status Stated complaint: Dizziness Time Seen by Provider: 08/14/22 19:38 Source: patient Mode of arrival: ambulatory Limitations: no limitations History of Present Illness HPI Narrative: Narrative: This is a 67-year-old female history is mostly obtained from patient's friend who brought her in and medical history from EMR. Patient's [place] he went to check on her and she was in her chair sleeping difficult to arouse. Patient does have a history of alcohol use drinking 1/5 every few days. She quit drinking 3 weeks ago. She denied any symptoms of tremors, hallucinations. She has no prior history of alcohol withdrawal seizures but admits it has been several years since she stopped drinking. Per chart review patient was in her primary care office in June she had an increase to her Suboxone dose and was started on baclofen. The patient does have a history of congestive heart failure, fibromyalgia. The patient's friend states that a few weeks ago he had even given her a walker because she was falling so much. She is to the point now where she will not even wake up enough to try to stand up. Related Data Previous Rx's Medication Instructions Recorded naloxone 4 mg/actuation nasal 1 spray intranasal Q2-3M PRN 06/12/20 spray (Narcan) overmedicated #2 ea fluticasone propionate 50 2 spray intranasal QDAY #15.8 mL 07/23/21 mcg/actuation nasal spray,suspension (Flonase Allergy Relief) furosemide 20 mg tablet 20 mg PO DAILY #90 tabs 09/25/21 naratriptan 2.5 mg tablet (Amerge) 2.5 mg PO Q4HP PRN migraine 10/24/21 headache #60 tabs spironolactone 25 mg tablet 25 mg PO QDAY #90 tabs 02/18/22 silver sulfadiazine 1 % topical 1 applic topical ONCE #25 grams 02/28/22 cream (Silvadene) pantoprazole 40 mg tablet,delayed See Rx Instructions .Route 03/20/22 release .COMPLEX #90 tabs levothyroxine 25 mcg tablet See Rx Instructions .Route 05/16/22 .COMPLEX #90 tabs lisinopril 5 mg tablet 5 mg PO DAILY #30 tabs 05/16/22 rosuvastatin 20 mg tablet 20 mg PO QDAY #90 tabs 05/28/22 baclofen 10 mg tablet 10 mg PO TID PRN muscle pain #90 06/18/22 tabs metformin 500 mg tablet,extended 1,000 mg PO QDAY #60 tabs 06/18/22 release 24 hr buprenorphine HCl 8 mg sublingual 8 mg sublingual .Q 6 hours PRN 07/19/22 tablet pain #120 tabs carvedilol 6.25 mg tablet (Coreg) 6.25 mg PO BID #60 tabs 08/09/22 pregabalin 100 mg capsule 100 mg PO BID #60 caps 08/14/22 Allergies Allergy/AdvReac Type Severity Reaction Status Date / Time Nortriptyline AdvReac Severe Hallucinati Verified 06/18/22 10:00 ng Penicillins AdvReac Intermediate Cramping Verified 08/15/22 01:59 of the Muscles Pork/Porcine Containing AdvReac Intermediate Abdominal Verified 08/15/22 02:01 Products Pain Review of Systems ROS ROS Narrative: Narrative: All systems ED: reviewed and negative except as stated. [facility] Narrative Patient History Narrative: Narrative: Medical/Surgical/Family History All Active Problems (Updated 08/15/22 @ 02:29 by Ronan Little MD) Encephalopathy (Acute) Dao's esophagus (Chronic) Personal history of breast cancer (Chronic) Cardiomyopathy (Chronic) Chronic pain syndrome (Chronic) Congestive heart failure (Chronic) Depressive disorder (Chronic) Diabetes mellitus, type II (Chronic) Dysmetabolic syndrome X (Chronic) Hyperlipidemia (Chronic) Hypertension, essential (Chronic) Mitral regurgitation (Chronic 07/28/12) Fibromyalgia affecting multiple sites (Chronic) Chronic pain with drug dependence (Chronic) Sinusitis (Chronic) Pharyngitis (Chronic) Recurrent sinusitis (Chronic) Cervical radiculopathy (Chronic) Dermatitis (Chronic) Allergic rhinitis (Chronic) Fibromyalgia (Chronic) Peripheral neuropathy (Chronic) Lumbar back pain (Chronic) Osteopenia (Chronic) Physical exam (Chronic) Hypotension (Chronic) Headache (Chronic) Anxiety (Chronic) Renal failure (Chronic) Hypothyroidism (Chronic) Elevated liver enzymes (Chronic) Hypotension (Chronic) Elevated serum globulin level (Chronic) Dizziness (Chronic) Hypotension (Chronic) Anemia (Chronic) 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) Tachycardia (Chronic) Acute exacerbation of CHF (congestive heart failure) (Chronic) Acute dyspnea (Chronic) Abnormal finding of diagnostic imaging (Chronic) CKD stage G2/A2, GFR 60-89 and albumin creatinine ratio 30-299 mg/g (Chronic) Pulmonary edema (Chronic) CHF exacerbation (Chronic) T2DM (type 2 diabetes mellitus) (Chronic) Metabolic acidosis (Chronic) Anemia, normocytic normochromic (Chronic) Cervical pain (Chronic) Other low back pain (Chronic) Myofascial pain (Chronic) Chronic pain (Chronic) GERD (gastroesophageal reflux disease) (Chronic) Short-term memory loss (Acute) Insomnia (Acute) Alcoholic (Acute) Burn (Acute) CKD stage G3b/A1, GFR 30-44 and albumin creatinine ratio <30 mg/g (Acute) Medical History (Updated 08/15/22 @ 02:29 by Ronan Little MD) Abnormal finding of diagnostic imaging Acute dyspnea Acute exacerbation of CHF (congestive heart failure) Acute on chronic kidney failure Baseline GFR >50 cc/min Acute renal failure with darlin GFR 15 and now back up to 69 cc/min as of late June 2020 Acute insult related to dehydration/hypotension with multiple diuretics and co-administration of lisinopril Allergic rhinitis Anemia Hemoglobin was dropping prior to hospitalization in March 2020 Anemia, normocytic normochromic Anxiety Dao's esophagus Cardiomyopathy secondary cardiomyopathy, unspecified related to cancer treatment Cervical pain Cervical radiculopathy CHF exacerbation Chronic pain Chronic pain syndrome Chronic pain with drug dependence CKD stage G2/A2, GFR 60-89 and albumin creatinine ratio 30-299 mg/g Continue RAASI based anti-HTN therapy Congestive heart failure Depressive disorder Dermatitis Diabetes mellitus, type II Dizziness Dysmetabolic syndrome X Elevated liver enzymes Elevated serum globulin level Fibromyalgia affecting multiple sites Fracture of ankle, closed 01/2013 GERD (gastroesophageal reflux disease) Headache Hepatitis C antibody positive in blood Will check for viral load via PCR. Could be the explanation for why her kidney function was mildly reduced years ago Hyperlipidemia Hypertension, essential Hypotension Hypothyroidism Lumbar back pain Metabolic acidosis Mitral regurgitation (07/28/12) Mild Myofascial pain Normal endoscopy Osteopenia Other low back pain Peripheral neuropathy Personal history of breast cancer (12/09/13-Dr Carpenter) Pharyngitis Physical exam Pulmonary edema Recurrent sinusitis Renal failure Short-term memory loss Shortness of breath Sinusitis T2DM (type 2 diabetes mellitus) Tachycardia Surgical History History of breast surgery LUMPECTOMY History of chemotherapy (12/09/13-Dr Carpenter) History of hysterectomy 1994 Due to fibroids History of radiation therapy (12/09/13-Dr Carpenter) History of surgery IV port placement and removal Status post biopsy of skin (09/17/13) Left Lower Extremity: Vesicular dermatitis with lichenoid inflammation Family History unknown Nonruptured cerebral aneurysm Unknown Cardiac disease Essential hypertension Glaucoma Cousin Malignant neoplasm of ovary Resulted in Mother HX: breast cancer Father Alcohol abuse Essential hypertension Brother Heart disease Social History Smoking Status: Never smoker Alcohol Intake Frequency: holiday/special occasion only Substance Use: does not use Exam Narrative Narrative: Narrative: Vital signs noted General: Sleeping, somnolent but does arouse to loud voice or nauseous stimuli HEENT: NCAT PERRL EOMI. pupils 4 mm symmetric Neck: Supple, trachea midline Cardiovascular: Bradycardic Respiratory: Shallow breathing decreased respiratory rate Gastrointestinal: Soft. No tenderness Musculoskeletal: No pain. No soft tissue swelling. Good ROM. No signs injury Skin: Large burn to the left flank Neurologic: Moves all extremities General Limitations: no limitations Course Vital Signs Vital signs: Vital Signs Temperature 96.6 F L 08/14/22 18:54 Pulse Rate 91 H 08/14/22 18:54 Respiratory Rate 16 08/14/22 18:54 Blood Pressure 77/54 08/14/22 18:54 Pulse Oximetry (%) 92 08/14/22 18:54 Oxygen Delivery Method Room Air 08/14/22 18:54 Temperature 98.1 F 08/15/22 01:24 Pulse Rate 54 L 08/15/22 01:01 Respiratory Rate 15 08/15/22 01:32 Blood Pressure 139/95 08/15/22 01:32 Pulse Oximetry (%) 96 08/15/22 01:32 Oxygen Delivery Method Room Air 08/15/22 01:32 MDM MDM Narrative Medical decision making narrative: Narrative: Patient presents to the emergency department with somnolence. Initially for me she would answer some questions but then would fall asleep mid conversation. CBC shows no findings of leukocytosis, venous blood gas does not show any evidence of CO2 retention or lactic acidosis. Patient's chemistry does show a increased creatinine of 1.7 it appears her baseline is around 1.2 concerning for acute kidney injury. The patient was given small amount of fluids for this. She does have a documented history of congestive heart failure. Her blood pressure was low he is maintaining perfusing maps. She is also bradycardic. Patient's TSH is within normal limits, patient's proBNP is actually decreased from baseline. Her chest x-ray per my interpretation does not show any new acute cardiopulmonary process. CT scan of the brain shows no acute intracranial process. I personally reviewed this imaging. Urinalysis is not consistent with infection patient's ammonia is not elevated. UDS is positive for opioids. Her alcohol is undetectable. If the patient truly quit drinking 3 weeks ago this seems to not be consistent with alcohol withdrawal. A secondary vitamin deficiency was considered. The patient was given 100 mg of thiamine. Patient was given a total of 0.4 mg of naloxone and had no change in her respiratory rate or her ability to arouse. Suspicion is that this may be related to baclofen especially with her kidney injury making the effect stronger. Patient will be admitted to hospitalist for encephalopathy. Lab Data 08/14/22 19:26 Labs: Lab Results 08/14/22 08/14/22 08/14/22 Range/Units 19:18 19:26 19:26 WBC 10.4 (4.5-11.0) K/mcL RBC 4.07 (3.59-5.38) M/mcL Hgb 13.0 (11.2-15.7) g/dL Hct 38.8 (34.1-44.9) % POC Hct 39.0 (36-48) MCV 95.3 (80.0-100.0) fL MCH 31.9 (26.0-34.0) pg MCHC 33.5 (31.0-36.0) g/dL RDW 13.5 (11.5-14.5) % Plt Count 271 (140-440) K/mcL MPV 11.3 (8.8-12.5) fL Immature Gran % (Auto) 1.6 H (0.0-0.5) % Neut % (Auto) 54.7 (38.0-78.0) % Lymph % (Auto) 29.9 (15.5-49.0) % [place] % (Auto) 12.4 H (1.0-12.0) % Eos % (Auto) 0.8 (0.0-7.0) % Baso % (Auto) 0.6 (0.0-2.0) % Lymph # (Auto) 3.09 (1.50-4.80) K/mcL [place] # (Auto) 1.28 H (0.10-0.90) K/mcL Eos # (Auto) 0.08 (0.00-0.70) K/mcL Baso # (Auto) 0.06 (0.00-0.30) K/mcL Immature Gran # 0.17 H (0.00-0.05) K/mcl Absolute Neutrophils 5.67 (1.80-8.00) K/mcL POC VBG pH (7.32-7.42) POC VBG pCO2 at Temp (41-51) POC VBG pO2 (25-40) POC VBG HCO3 (24-28) POC VBG Total CO2 (25-29) POC Venous O2 Sat (40-70) POC VBG Base Excess (-2-2) VBG Lactic Acid (0.5-2) POC Sodium 140 (133-145) POC Potassium 4.0 (3.3-5.1) POC Chloride 106 (96-108) POC Total CO2 25.0 (22-30) POC BUN 33 H (6-20) POC Creatinine 1.7 H (0.6-1.2) POC Glucose 206 H (70-105) POC WB Ioniz Calcium 1.18 (1.16-1.32) Magnesium (1.6-2.5) mg/dL Total Bilirubin (0.1-1.0) mg/dL Direct Bilirubin (0-0.3) mg/dL AST (<32) U/L ALT (<40) U/L Alkaline Phosphatase (39-117) U/L Ammonia (11-51) umol/L NT-Pro-B Natriuret Pep 1316.0 H (<125.0) pg/mL Total Protein (5.9-8.4) gm/dL Albumin (3.2-5.2) gm/dL Globulin (2.2-3.7) gm/dL TSH (0.27-5.01) uIU/mL Urine Color Urine Appearance (Clear) Urine pH (5.0-9.0) Ur Specific [place] (1.000-1.035) Urine Protein (Negative) mg/dL Urine Glucose (UA) (Negative) mg/dL Urine Ketones (Negative) mg/dL Urine Occult Blood (Negative) mg/dL Urine Nitrate (Negative) Urine Bilirubin (Negative) mg/dL Urine Urobilinogen mg/dL Ur Leukocyte Esterase (Negative) /uL Ur Culture Indicated? Urine Opiates Screen Ur Oxycodone Screen U Oxycod/Oxymor Confirm Urine Methadone Screen Ur Methadone Confirm Ur Barbiturates Screen Ur Barbiturate Confirm Ur Phencyclidine Scrn Urine PCP Confirm Ur Amphetamines Screen U Amphetamines Confirm U Benzodiazepines Scrn Ur Benzodiazepine, Qnt Urine Cocaine Screen Urine Cocaine Confirm U Cannabinoids Confirm U Marijuana (THC) Screen Ethyl Alcohol mg/dL mg/dL Ethyl Alcohol g/dL (<0.010) gm/dL POC Troponin I (0.00-0.08) 08/14/22 08/14/22 08/14/22 Range/Units 19:26 20:02 21:39 WBC (4.5-11.0) K/mcL RBC (3.59-5.38) M/mcL Hgb (11.2-15.7) g/dL Hct (34.1-44.9) % POC Hct (36-48) MCV (80.0-100.0) fL MCH (26.0-34.0) pg MCHC (31.0-36.0) g/dL RDW (11.5-14.5) % Plt Count (140-440) K/mcL MPV (8.8-12.5) fL Immature Gran % (Auto) (0.0-0.5) % Neut % (Auto) (38.0-78.0) % Lymph % (Auto) (15.5-49.0) % [place] % (Auto) (1.0-12.0) % Eos % (Auto) (0.0-7.0) % Baso % (Auto) (0.0-2.0) % Lymph # (Auto) (1.50-4.80) K/mcL [place] # (Auto) (0.10-0.90) K/mcL Eos # (Auto) (0.00-0.70) K/mcL Baso # (Auto) (0.00-0.30) K/mcL Immature Gran # (0.00-0.05) K/mcl Absolute Neutrophils (1.80-8.00) K/mcL POC VBG pH (7.32-7.42) POC VBG pCO2 at Temp (41-51) POC VBG pO2 (25-40) POC VBG HCO3 (24-28) POC VBG Total CO2 (25-29) POC Venous O2 Sat (40-70) POC VBG Base Excess (-2-2) VBG Lactic Acid (0.5-2) POC Sodium (133-145) POC Potassium (3.3-5.1) POC Chloride (96-108) POC Total CO2 (22-30) POC BUN (6-20) POC Creatinine (0.6-1.2) POC Glucose (70-105) POC WB Ioniz Calcium (1.16-1.32) Magnesium 1.9 (1.6-2.5) mg/dL Total Bilirubin 0.5 (0.1-1.0) mg/dL Direct Bilirubin < 0.2 (0-0.3) mg/dL AST 31 (<32) U/L ALT 37 (<40) U/L Alkaline Phosphatase 55 (39-117) U/L Ammonia 23 (11-51) umol/L NT-Pro-B Natriuret Pep (<125.0) pg/mL Total Protein 7.3 (5.9-8.4) gm/dL Albumin 4.2 (3.2-5.2) gm/dL Globulin 3.1 (2.2-3.7) gm/dL TSH (0.27-5.01) uIU/mL Urine Color Urine Appearance (Clear) Urine pH (5.0-9.0) Ur Specific [place] (1.000-1.035) Urine Protein (Negative) mg/dL Urine Glucose (UA) (Negative) mg/dL Urine Ketones (Negative) mg/dL Urine Occult Blood (Negative) mg/dL Urine Nitrate (Negative) Urine Bilirubin (Negative) mg/dL Urine Urobilinogen mg/dL Ur Leukocyte Esterase (Negative) /uL Ur Culture Indicated? Urine Opiates Screen Ur Oxycodone Screen U Oxycod/Oxymor Confirm Urine Methadone Screen Ur Methadone Confirm Ur Barbiturates Screen Ur Barbiturate Confirm Ur Phencyclidine Scrn Urine PCP Confirm Ur Amphetamines Screen U Amphetamines Confirm U Benzodiazepines Scrn Ur Benzodiazepine, Qnt Urine Cocaine Screen Urine Cocaine Confirm U Cannabinoids Confirm U Marijuana (THC) Screen Ethyl Alcohol mg/dL mg/dL Ethyl Alcohol g/dL (<0.010) gm/dL POC Troponin I < 0.02 (0.00-0.08) 08/14/22 08/14/22 08/14/22 Range/Units 21:44 21:54 22:17 WBC (4.5-11.0) K/mcL RBC (3.59-5.38) M/mcL Hgb (11.2-15.7) g/dL Hct (34.1-44.9) % POC Hct (36-48) MCV (80.0-100.0) fL MCH (26.0-34.0) pg MCHC (31.0-36.0) g/dL RDW (11.5-14.5) % Plt Count (140-440) K/mcL MPV (8.8-12.5) fL Immature Gran % (Auto) (0.0-0.5) % Neut % (Auto) (38.0-78.0) % Lymph % (Auto) (15.5-49.0) % [place] % (Auto) (1.0-12.0) % Eos % (Auto) (0.0-7.0) % Baso % (Auto) (0.0-2.0) % Lymph # (Auto) (1.50-4.80) K/mcL [place] # (Auto) (0.10-0.90) K/mcL Eos # (Auto) (0.00-0.70) K/mcL Baso # (Auto) (0.00-0.30) K/mcL Immature Gran # (0.00-0.05) K/mcl Absolute Neutrophils (1.80-8.00) K/mcL POC VBG pH 7.41 (7.32-7.42) POC VBG pCO2 at Temp 44.7 (41-51) POC VBG pO2 32 (25-40) POC VBG HCO3 28.1 H (24-28) POC VBG Total CO2 29.0 (25-29) POC Venous O2 Sat 61.0 (40-70) POC VBG Base Excess 3.0 H (-2-2) VBG Lactic Acid 1.0 (0.5-2) POC Sodium (133-145) POC Potassium (3.3-5.1) POC Chloride (96-108) POC Total CO2 (22-30) POC BUN (6-20) POC Creatinine (0.6-1.2) POC Glucose (70-105) POC WB Ioniz Calcium (1.16-1.32) Magnesium (1.6-2.5) mg/dL Total Bilirubin (0.1-1.0) mg/dL Direct Bilirubin (0-0.3) mg/dL AST (<32) U/L ALT (<40) U/L Alkaline Phosphatase (39-117) U/L Ammonia (11-51) umol/L NT-Pro-B Natriuret Pep (<125.0) pg/mL Total Protein (5.9-8.4) gm/dL Albumin (3.2-5.2) gm/dL Globulin (2.2-3.7) gm/dL TSH (0.27-5.01) uIU/mL Urine Color Yellow Urine Appearance Hazy A (Clear) Urine pH 5.0 (5.0-9.0) Ur Specific [place] 1.012 (1.000-1.035) Urine Protein Negative (Negative) mg/dL Urine Glucose (UA) Negative (Negative) mg/dL Urine Ketones Negative (Negative) mg/dL Urine Occult Blood Negative (Negative) mg/dL Urine Nitrate Negative (Negative) Urine Bilirubin Negative (Negative) mg/dL Urine Urobilinogen Negative mg/dL Ur Leukocyte Esterase Negative (Negative) /uL Ur Culture Indicated? No Urine Opiates Screen Ur Oxycodone Screen U Oxycod/Oxymor Confirm Urine Methadone Screen Ur Methadone Confirm Ur Barbiturates Screen Ur Barbiturate Confirm Ur Phencyclidine Scrn Urine PCP Confirm Ur Amphetamines Screen U Amphetamines Confirm U Benzodiazepines Scrn Ur Benzodiazepine, Qnt Urine Cocaine Screen Urine Cocaine Confirm U Cannabinoids Confirm U Marijuana (THC) Screen Ethyl Alcohol mg/dL < 10.0 mg/dL Ethyl Alcohol g/dL < 0.010 (<0.010) gm/dL POC Troponin I (0.00-0.08) 08/14/22 08/15/22 Range/Units 22:18 00:33 WBC (4.5-11.0) K/mcL RBC (3.59-5.38) M/mcL Hgb (11.2-15.7) g/dL Hct (34.1-44.9) % POC Hct (36-48) MCV (80.0-100.0) fL MCH (26.0-34.0) pg MCHC (31.0-36.0) g/dL RDW (11.5-14.5) % Plt Count (140-440) K/mcL MPV (8.8-12.5) fL Immature Gran % (Auto) (0.0-0.5) % Neut % (Auto) (38.0-78.0) % Lymph % (Auto) (15.5-49.0) % [place] % (Auto) (1.0-12.0) % Eos % (Auto) (0.0-7.0) % Baso % (Auto) (0.0-2.0) % Lymph # (Auto) (1.50-4.80) K/mcL [place] # (Auto) (0.10-0.90) K/mcL Eos # (Auto) (0.00-0.70) K/mcL Baso # (Auto) (0.00-0.30) K/mcL Immature Gran # (0.00-0.05) K/mcl Absolute Neutrophils (1.80-8.00) K/mcL POC VBG pH (7.32-7.42) POC VBG pCO2 at Temp (41-51) POC VBG pO2 (25-40) POC VBG HCO3 (24-28) POC VBG Total CO2 (25-29) POC Venous O2 Sat (40-70) POC VBG Base Excess (-2-2) VBG Lactic Acid (0.5-2) POC Sodium (133-145) POC Potassium (3.3-5.1) POC Chloride (96-108) POC Total CO2 (22-30) POC BUN (6-20) POC Creatinine (0.6-1.2) POC Glucose (70-105) POC WB Ioniz Calcium (1.16-1.32) Magnesium (1.6-2.5) mg/dL Total Bilirubin (0.1-1.0) mg/dL Direct Bilirubin (0-0.3) mg/dL AST (<32) U/L ALT (<40) U/L Alkaline Phosphatase (39-117) U/L Ammonia (11-51) umol/L NT-Pro-B Natriuret Pep (<125.0) pg/mL Total Protein (5.9-8.4) gm/dL Albumin (3.2-5.2) gm/dL Globulin (2.2-3.7) gm/dL TSH 2.14 (0.27-5.01) uIU/mL Urine Color Urine Appearance (Clear) Urine pH (5.0-9.0) Ur Specific [place] (1.000-1.035) Urine Protein (Negative) mg/dL Urine Glucose (UA) (Negative) mg/dL Urine Ketones (Negative) mg/dL Urine Occult Blood (Negative) mg/dL Urine Nitrate (Negative) Urine Bilirubin (Negative) mg/dL Urine Urobilinogen mg/dL Ur Leukocyte Esterase (Negative) /uL Ur Culture Indicated? Urine Opiates Screen Suspect positive A Ur Oxycodone Screen None detected U Oxycod/Oxymor Confirm TNP Urine Methadone Screen None detected Ur Methadone Confirm TNP Ur Barbiturates Screen None detected Ur Barbiturate Confirm TNP Ur Phencyclidine Scrn None detected Urine PCP Confirm TNP Ur Amphetamines Screen None detected U Amphetamines Confirm TNP U Benzodiazepines Scrn None detected Ur Benzodiazepine, Qnt TNP Urine Cocaine Screen None detected Urine Cocaine Confirm TNP U Cannabinoids Confirm TNP U Marijuana (THC) Screen None detected Ethyl Alcohol mg/dL mg/dL Ethyl Alcohol g/dL (<0.010) gm/dL POC Troponin I (0.00-0.08) Discharge Plan Patient/Caregiver Discharge Instructions Pt seen by [facility]/PA only: No Clinical Impression: Encephalopathy Patient Disposition: Xfer As Outpt/Obs ([facility]) Condition: Good Discharge Date/Time: 08/15/22 01:28
[2022-08-15] MEDS ORDERED: 0.9 % SODIUM CHLORIDE 1,000 ML IV ONE (00:22)
[2022-08-15] MEDS ORDERED: ACETAMINOPHEN 325 MG TABLET PO PRN (00:40)
[2022-08-15] MEDS ORDERED: ONDANSETRON 4 MG/2 ML VIAL IV PRN (00:40)
[2022-08-15] MEDS ORDERED: SENNOSIDES 1 TABLET PO PRN ×2 (00:40→08:09)
[2022-08-15] MEDS ORDERED: LACTULOSE 20 GM/30 ML ORAL.SOL PO PRN (00:40)
[2022-08-15] MEDS ORDERED: 0.45 % SODIUM CHLORIDE 1,000 ML IV SCH (00:45)
[2022-08-15] MEDS ORDERED: THIAMINE 100 MG in 0.9 % SODIUM CHLORIDE 50 ML IV ONE (01:07)
[2022-08-15] MEDS: 0.9 % SODIUM CHLORIDE 10 ML SYRINGE IV SCH ×4 (01:25→21:01)
[2022-08-15] MEDS ORDERED: THIAMINE 100 MG/ML VIAL ONE (01:33)
--- NOTE | 2022-08-15 07:54 | Cat Scan Report ---
History: Altered mental status, history of alcohol use, dizziness TECHNIQUE: The brain was imaged without contrast in axial plane at 2.5 mm intervals. Sagittal and coronal reformats were created. The radiation exposure was limited using dose reduction technology. FINDINGS: There is mild generalized atrophy both above and below the tentorium. This is most apparent around the sylvian fissures. There is no intracranial hemorrhage, edema, infarct or mass effect. The ventricles are prominent but proportionate to the atrophy. There is no abnormal extra-axial fluid collection. Bone windows show no skull fracture. The visualized portions of the orbits and sinuses are normal. Mastoids are normally aerated. Comparison with the prior brain MRI done on 12/06/04 shows there has been moderate progression of the atrophy. IMPRESSION: Generalized cerebral atrophy. No acute abnormality Interpreted and Authenticated by: Conor Meade 08/15/22
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
--- NOTE | 2022-08-15 07:56 | XRay Report ---
HISTORY: Altered mental status, history of breast cancer and congestive heart failure FINDINGS: The lungs are clear normally expanded. The heart is normal in size and contour. There is no congestive heart failure. The aorta is tortuous. There are multiple surgical clips in the axillary portion of the right breast extending into the axilla. No lytic or blastic lesion are detected. There is an old healed fracture laterally in the right ninth and 10th rib. Comparison with the prior chest CT done on 09/15/20 shows resolution of previously seen interstitial edema. IMPRESSION: Normal exam Interpreted and Authenticated by: Conor Meade 08/15/22
[2022-08-15] MEDS ORDERED: LABETALOL 5 MG/ML ML IV PRN (08:09)
[2022-08-15] MEDS ORDERED: POTASSIUM CHLORIDE 20 MEQ TABLET PO PRN ×2 (08:09)
[2022-08-15] MEDS ORDERED: DEXTROSE 50% 50 ML VIAL IV PRN (08:09)
[2022-08-15] MEDS ORDERED: POLYETHYLENE GLYCOL 3350 17 GM PACKET PO PRN (08:09)
[2022-08-15] MEDS ORDERED: chlordiazePOXIDE 25 MG CAPSULE PO PRN (08:09)
[2022-08-15] MEDS ORDERED: LORazepam 2 MG/ML VIAL IV PRN (08:09)
[2022-08-15] MEDS ORDERED: POTASSIUM CHLORIDE 40 MEQ in DEXTROSE 5% IN WATER 500 ML IV PRN (08:09)
[2022-08-15] MEDS ORDERED: MAGNESIUM SULFATE 2 GM/50 ML BAG IV PRN (08:09)
[2022-08-15] MEDS ORDERED: DEXTROSE 31 GM ORAL.SUSP PO PRN (08:09)
[2022-08-15] MEDS ORDERED: IPRATROPIUM/ALBUTEROL 3 ML AMPUL.NEB NEB PRN (08:09)
[2022-08-15] MEDS: DOCUSATE SODIUM 100 MG CAPSULE PO SCH ×4 (09:02→21:00)
[2022-08-15] MEDS: LEVOTHYROXINE 25 MCG TABLET PO SCH (09:09)
[2022-08-15] MEDS: MULTIVIT,THER IRON,CA,FA & MIN 1 TABLET PO SCH (09:09)
[2022-08-15] MEDS: FOLIC ACID 1 MG TABLET PO SCH (09:09)
[2022-08-15] MEDS: ENOXAPARIN 40 MG/0.4 ML SYRINGE SQ SCH (09:10)
[2022-08-15] MEDS: THIAMINE 100 MG in 0.9 % SODIUM CHLORIDE 50 ML IV SCH (09:41)
--- NOTE | 2022-08-15 10:24 | Discharge Summary ---
Discharge Provider Provider IMPORTANT FOLLOW-UP INFORMATION FOR PCP: Patient information: Note initiated : 08/15/22 at 10:23 am Service Date, if different from initiated Date: [] Patient: Dylan Martin 67 y/o F admitted on 08/15/22 for Dizziness. Chief Complaint: [] Date of admission: 08/15/22 01:21 Discharge date: 08/16/22 Primary care physician: Mey Pack Consults: 08/15/22 07:27 Consult to Physician [CONS] Routine Comment: Consulting Provider: Roberto Carlos Connor Reason For Exam: Physician to Consult 08/15/22 09:53 Consult to Physician [CONS] Routine Comment: Consulting Provider: Dayday Hdez Reason For Exam: Physician to Consult COURSE Hospital Course Hospital course: History of present illness: Ms. Martin is a 67 year old F Presents the ED for unsteady gait with falling asleep frequently. Patient lives alone but her significant other checks in on her. Blood pressure in triage was 77/54. Positives obtained from the chart due to the patient's altered mental state. The friend found the patient in her chair sleeping and difficult to arouse. Also reported the patient drinks 1/5 daily but that she stopped drinking 3 weeks prior. No reported history of alcohol withdrawal seizures. Patient denies using any other narcotics. When asked about hydrocodone and oxycodone she looked at me blankly and then looked over her who answered stating she had not taken any of those. Although with most questions she did have the same response. Patient also had increase in her buprenorphine and baclofen was started as well in mid June. Additionally patient was given a walker several weeks ago because of her increased falling. In the ED she was given Narcan without success. UDS was only positive for opioids which she is on. Head CT with generalized atrophy but no acute findings. And chest x-ray done and unremarkable. CBC and lactate were unremarkable. VBG showed no acidosis or co2 retention. Troponin negative. Chemistry unremarkable except for elevated BUN and creatinine. TSH within normal limits. Ammonia level unremarkable Blood pressure responded to several liter bolus of IV fluids. When I saw the patient this morning she was alert and awake. However she seemed to act a little odd. Anytime I asked her any questions she would point to her significant other to answer. Then she randomly talked about having difficulty with her hands and that her significant other had explained that she burned them on their woodstove earlier this year. Of significance is her UDS did show opioids. Patient is on buprenorphine which shouldn't show up on the UDS. 08/16 No overnight event or new complaints. Patient doing well. Stable for discharge A: *Encephalopathy (obtundation): etiology medications vs etoh w/d seizure vs non-prescribed opioid -recently started baclofen, also on buprenorphine increased. 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 Time Spent with Patient Time attestation: Total time spent providing and/or coordinating discharge services: Time spent: Greater than 30 minutes EXAM Constitutional Vitals: Temp Pulse Resp BP Pulse Ox O2 Del Method 97.2 F 59 L 13 133/74 91 Room Air 08/15/22 08:00 08/15/22 06:00 08/15/22 08:13 08/15/22 08:01 08/15/22 06:00 08/15/22 06:00 Discharge Data Data Completed and Pending Labs on day of discharge: Labs from last 24 hours 08/15/22 08/15/22 08/15/22 09:55 00:33 00:33 WBC RBC Hgb Hct POC Hct MCV MCH MCHC RDW Plt Count MPV Immature Gran % (Auto) Neut % (Auto) Lymph % (Auto) [place] % (Auto) Eos % (Auto) Baso % (Auto) Lymph # (Auto) [place] # (Auto) Eos # (Auto) Baso # (Auto) Immature Gran # Absolute Neutrophils POC VBG pH POC VBG pCO2 at Temp POC VBG pO2 POC VBG HCO3 POC VBG Total CO2 POC Venous O2 Sat POC VBG Base Excess VBG Lactic Acid POC Sodium Sodium Pending POC Potassium Potassium Pending POC Chloride Chloride Pending Carbon Dioxide Pending POC Total CO2 Anion Gap Pending POC BUN BUN Pending Creatinine Pending POC Creatinine GFR Calculation Pending Glucose Pending POC Glucose Uric Acid Pending Calcium Pending POC WB Ioniz Calcium Phosphorus Pending Magnesium Pending Total Bilirubin Pending Direct Bilirubin Pending GGT Pending AST Pending ALT Pending Alkaline Phosphatase Pending Ammonia Lactate Dehydrogenase Pending NT-Pro-B Natriuret Pep Total Protein Pending Albumin Pending Globulin Pending Albumin/Globulin Ratio Pending Triglycerides Pending TSH 2.14 Prolactin 25.5 H Urine Color Urine Appearance Urine pH Ur Specific [place] Urine Protein Urine Glucose (UA) Urine Ketones Urine Occult Blood Urine Nitrate Urine Bilirubin Urine Urobilinogen Ur Leukocyte Esterase Ur Culture Indicated? Urine Opiates Screen Ur Opiates Confirm Ur Oxycodone Screen U Oxycod/Oxymor Confirm Urine Methadone Screen Ur Methadone Confirm Ur Barbiturates Screen Ur Barbiturate Confirm Ur Phencyclidine Scrn Urine PCP Confirm Ur Amphetamines Screen U Amphetamines Confirm U Benzodiazepines Scrn Ur Benzodiazepine, Qnt Urine Cocaine Screen Urine Cocaine Confirm U Cannabinoids Confirm U Marijuana (THC) Screen Ethyl Alcohol mg/dL Ethyl Alcohol g/dL POC Troponin I 08/14/22 08/14/22 08/14/22 22:18 22:17 21:54 WBC RBC Hgb Hct POC Hct MCV MCH MCHC RDW Plt Count MPV Immature Gran % (Auto) Neut % (Auto) Lymph % (Auto) [place] % (Auto) Eos % (Auto) Baso % (Auto) Lymph # (Auto) [place] # (Auto) Eos # (Auto) Baso # (Auto) Immature Gran # Absolute Neutrophils POC VBG pH POC VBG pCO2 at Temp POC VBG pO2 POC VBG HCO3 POC VBG Total CO2 POC Venous O2 Sat POC VBG Base Excess VBG Lactic Acid POC Sodium Sodium POC Potassium Potassium POC Chloride Chloride Carbon Dioxide POC Total CO2 Anion Gap POC BUN BUN Creatinine POC Creatinine GFR Calculation Glucose POC Glucose Uric Acid Calcium POC WB Ioniz Calcium Phosphorus Magnesium Total Bilirubin Direct Bilirubin GGT AST ALT Alkaline Phosphatase Ammonia Lactate Dehydrogenase NT-Pro-B Natriuret Pep Total Protein Albumin Globulin Albumin/Globulin Ratio Triglycerides TSH Prolactin Urine Color Yellow Urine Appearance Hazy A Urine pH 5.0 Ur Specific [place] 1.012 Urine Protein Negative Urine Glucose (UA) Negative Urine Ketones Negative Urine Occult Blood Negative Urine Nitrate Negative Urine Bilirubin Negative Urine Urobilinogen Negative Ur Leukocyte Esterase Negative Ur Culture Indicated? No Urine Opiates Screen Suspect positive A Ur Opiates Confirm Pending Ur Oxycodone Screen None detected U Oxycod/Oxymor Confirm TNP Urine Methadone Screen None detected Ur Methadone Confirm TNP Ur Barbiturates Screen None detected Ur Barbiturate Confirm TNP Ur Phencyclidine Scrn None detected Urine PCP Confirm TNP Ur Amphetamines Screen None detected U Amphetamines Confirm TNP U Benzodiazepines Scrn None detected Ur Benzodiazepine, Qnt TNP Urine Cocaine Screen None detected Urine Cocaine Confirm TNP U Cannabinoids Confirm TNP U Marijuana (THC) Screen None detected Ethyl Alcohol mg/dL < 10.0 Ethyl Alcohol g/dL < 0.010 POC Troponin I 08/14/22 08/14/22 08/14/22 21:44 21:39 20:02 WBC RBC Hgb Hct POC Hct MCV MCH MCHC RDW Plt Count MPV Immature Gran % (Auto) Neut % (Auto) Lymph % (Auto) [place] % (Auto) Eos % (Auto) Baso % (Auto) Lymph # (Auto) [place] # (Auto) Eos # (Auto) Baso # (Auto) Immature Gran # Absolute Neutrophils POC VBG pH 7.41 POC VBG pCO2 at Temp 44.7 POC VBG pO2 32 POC VBG HCO3 28.1 H POC VBG Total CO2 29.0 POC Venous O2 Sat 61.0 POC VBG Base Excess 3.0 H VBG Lactic Acid 1.0 POC Sodium Sodium POC Potassium Potassium POC Chloride Chloride Carbon Dioxide POC Total CO2 Anion Gap POC BUN BUN Creatinine POC Creatinine GFR Calculation Glucose POC Glucose Uric Acid Calcium POC WB Ioniz Calcium Phosphorus Magnesium Total Bilirubin Direct Bilirubin GGT AST ALT Alkaline Phosphatase Ammonia 23 Lactate Dehydrogenase NT-Pro-B Natriuret Pep Total Protein Albumin Globulin Albumin/Globulin Ratio Triglycerides TSH Prolactin Urine Color Urine Appearance Urine pH Ur Specific [place] Urine Protein Urine Glucose (UA) Urine Ketones Urine Occult Blood Urine Nitrate Urine Bilirubin Urine Urobilinogen Ur Leukocyte Esterase Ur Culture Indicated? Urine Opiates Screen Ur Opiates Confirm Ur Oxycodone Screen U Oxycod/Oxymor Confirm Urine Methadone Screen Ur Methadone Confirm Ur Barbiturates Screen Ur Barbiturate Confirm Ur Phencyclidine Scrn Urine PCP Confirm Ur Amphetamines Screen U Amphetamines Confirm U Benzodiazepines Scrn Ur Benzodiazepine, Qnt Urine Cocaine Screen Urine Cocaine Confirm U Cannabinoids Confirm U Marijuana (THC) Screen Ethyl Alcohol mg/dL Ethyl Alcohol g/dL POC Troponin I < 0.02 08/14/22 08/14/22 08/14/22 19:26 19:26 19:26 WBC 10.4 RBC 4.07 Hgb 13.0 Hct 38.8 POC Hct MCV 95.3 MCH 31.9 MCHC 33.5 RDW 13.5 Plt Count 271 MPV 11.3 Immature Gran % (Auto) 1.6 H Neut % (Auto) 54.7 Lymph % (Auto) 29.9 [place] % (Auto) 12.4 H Eos % (Auto) 0.8 Baso % (Auto) 0.6 Lymph # (Auto) 3.09 [place] # (Auto) 1.28 H Eos # (Auto) 0.08 Baso # (Auto) 0.06 Immature Gran # 0.17 H Absolute Neutrophils 5.67 POC VBG pH POC VBG pCO2 at Temp POC VBG pO2 POC VBG HCO3 POC VBG Total CO2 POC Venous O2 Sat POC VBG Base Excess VBG Lactic Acid POC Sodium Sodium POC Potassium Potassium POC Chloride Chloride Carbon Dioxide POC Total CO2 Anion Gap POC BUN BUN Creatinine POC Creatinine GFR Calculation Glucose POC Glucose Uric Acid Calcium POC WB Ioniz Calcium Phosphorus Magnesium 1.9 Total Bilirubin 0.5 Direct Bilirubin < 0.2 GGT AST 31 ALT 37 Alkaline Phosphatase 55 Ammonia Lactate Dehydrogenase NT-Pro-B Natriuret Pep 1316.0 H Total Protein 7.3 Albumin 4.2 Globulin 3.1 Albumin/Globulin Ratio Triglycerides TSH Prolactin Urine Color Urine Appearance Urine pH Ur Specific [place] Urine Protein Urine Glucose (UA) Urine Ketones Urine Occult Blood Urine Nitrate Urine Bilirubin Urine Urobilinogen Ur Leukocyte Esterase Ur Culture Indicated? Urine Opiates Screen Ur Opiates Confirm Ur Oxycodone Screen U Oxycod/Oxymor Confirm Urine Methadone Screen Ur Methadone Confirm Ur Barbiturates Screen Ur Barbiturate Confirm Ur Phencyclidine Scrn Urine PCP Confirm Ur Amphetamines Screen U Amphetamines Confirm U Benzodiazepines Scrn Ur Benzodiazepine, Qnt Urine Cocaine Screen Urine Cocaine Confirm U Cannabinoids Confirm U Marijuana (THC) Screen Ethyl Alcohol mg/dL Ethyl Alcohol g/dL POC Troponin I 08/14/22 19:18 WBC RBC Hgb Hct POC Hct 39.0 MCV MCH MCHC RDW Plt Count MPV Immature Gran % (Auto) Neut % (Auto) Lymph % (Auto) [place] % (Auto) Eos % (Auto) Baso % (Auto) Lymph # (Auto) [place] # (Auto) Eos # (Auto) Baso # (Auto) Immature Gran # Absolute Neutrophils POC VBG pH POC VBG pCO2 at Temp POC VBG pO2 POC VBG HCO3 POC VBG Total CO2 POC Venous O2 Sat POC VBG Base Excess VBG Lactic Acid POC Sodium 140 Sodium POC Potassium 4.0 Potassium POC Chloride 106 Chloride Carbon Dioxide POC Total CO2 25.0 Anion Gap POC BUN 33 H BUN Creatinine POC Creatinine 1.7 H GFR Calculation Glucose POC Glucose 206 H Uric Acid Calcium POC WB Ioniz Calcium 1.18 Phosphorus Magnesium Total Bilirubin Direct Bilirubin GGT AST ALT Alkaline Phosphatase Ammonia Lactate Dehydrogenase NT-Pro-B Natriuret Pep Total Protein Albumin Globulin Albumin/Globulin Ratio Triglycerides TSH Prolactin Urine Color Urine Appearance Urine pH Ur Specific [place] Urine Protein Urine Glucose (UA) Urine Ketones Urine Occult Blood Urine Nitrate Urine Bilirubin Urine Urobilinogen Ur Leukocyte Esterase Ur Culture Indicated? Urine Opiates Screen Ur Opiates Confirm Ur Oxycodone Screen U Oxycod/Oxymor Confirm Urine Methadone Screen Ur Methadone Confirm Ur Barbiturates Screen Ur Barbiturate Confirm Ur Phencyclidine Scrn Urine PCP Confirm Ur Amphetamines Screen U Amphetamines Confirm U Benzodiazepines Scrn Ur Benzodiazepine, Qnt Urine Cocaine Screen Urine Cocaine Confirm U Cannabinoids Confirm U Marijuana (THC) Screen Ethyl Alcohol mg/dL Ethyl Alcohol g/dL POC Troponin I Discharge Plan Patient/Caregiver Discharge Instructions Activity: increase activity as tolerated Diet: Consistent Carbohydrate Instructions: Encephalopathy (GEN) Prescriptions: Continued Narcan 4 mg/actuation spray,non-aerosol 1 spray INTRANASAL Q2-3M PRN (Reason: overmedicated) Qty: 2 0RF Rx Instructions: Use 1 dose in a nostril prn overdose, can repeat in 2-3 minutes. fluticasone propionate [Flonase Allergy Relief] 50 mcg/actuation spray,suspension 2 spray INTRANASAL QDAY Qty: 15.8 5RF Rx Instructions: 2 sprays each nostril once a day furosemide 20 mg tablet 20 mg PO DAILY Qty: 90 3RF naratriptan [Amerge] 2.5 mg tablet 2.5 mg PO Q4HP PRN (Reason: migraine headache) Qty: 60 0RF Rx Instructions: Take 1 tab by mouth at onset of headache. if no relief, may repeat 1 tab after at least 4 hrs; max = 2 tabs/24 hrs pantoprazole 40 mg tablet,delayed release (DR/EC) See Rx Instructions .ROUTE .COMPLEX Qty: 90 3RF Dose Instruction: take 1 tablet (40 mg) by mouth once daily Rx Instructions: take 1 tablet (40 mg) by mouth once daily lisinopril 5 mg tablet 5 mg PO DAILY Qty: 30 6RF levothyroxine 25 mcg tablet See Rx Instructions .ROUTE .COMPLEX Qty: 90 0RF Dose Instruction: take 1 tablet (25 mcg) by mouth once daily Rx Instructions: take 1 tablet (25 mcg) by mouth once daily rosuvastatin 20 mg tablet 20 mg PO QDAY Qty: 90 2RF buprenorphine HCl 8 mg tablet, sublingual 8 mg sublingual .Q 6 hours PRN (Reason: pain) Qty: 120 0RF Rx Instructions: can pick carvedilol [Coreg] 6.25 mg tablet 6.25 mg PO BID Qty: 60 6RF Rx Instructions: must administer with a meal/food pregabalin 100 mg capsule 100 mg PO BID Qty: 60 2RF spironolactone 25 mg tablet 25 mg PO QDAY Qty: 90 3RF silver sulfadiazine [Silvadene] 1 % cream 1 applic topical ONCE Qty: 25 0RF Rx Instructions: apply a 1.5 mm thickness metformin 500 mg tablet extended release 24 hr 1,000 mg PO QDAY Qty: 60 2RF Discontinued baclofen 10 mg tablet 10 mg PO TID PRN (Reason: muscle pain) Qty: 90 1RF Follow Up Plan Follow up with: Mey Pack ARNP [Primary Care Provider] - (Your primary care physician will contact you to schedule an appointment.) Patient Disposition: Home, Self-Care Prognosis: Fair Overall status at discharge: patient is progressing back to baseline Discharge Orders: Discharge Order (Routine); Ordered 08/16/22 [facility]/Pulmonary Embolism Present on Admission: No
[2022-08-15 10:49] LABS: ALT/SGPT 31 U/L (<40); AST/SGOT 24 U/L (<32); Albumin 3.8 gm/dL (3.2-5.2); Albumin/Globulin Ratio 1.4 (1.0-2.3); Alkaline Phosphatase 51 U/L (39-117); Bilirubin,Direct < 0.2 mg/dL (0-0.3); Bilirubin,Total 0.7 mg/dL (0.1-1.0); Blood Urea Nitrogen 22 mg/dL (8-23); Calcium 9.4 mg/dL (8.6-10.4); Carbon Dioxide 25 mmol/L (22-30); Chloride 106 mmol/L (96-108); Globulin 2.7 gm/dL (2.2-3.7); Glomerular Filtration Rate 57; Glucose 118 mg/dL (70-105); Lactate Dehydrogenase 188 U/L (135-225); Phosphorous 3.1 mg/dL (2.5-4.5); Triglycerides 100 mg/dL (<150); Uric Acid 4.5 mg/dL (2.5-8.0)
[2022-08-15] MEDS: INSULIN LISPRO 1 UNIT/0.01 ML UNIT SQ SCH ×3 (12:03→21:00)
[2022-08-15] MEDS ORDERED: BUPRENORPHINE HCL 8 MG TAB.SUBL SL PRN (16:23)
[2022-08-15] MEDS ORDERED: ATORVASTATIN 40 MG TABLET PO SCH (21:00)
[2022-08-16] MEDS: 0.9 % SODIUM CHLORIDE 10 ML SYRINGE IV SCH (05:47)
[2022-08-16 06:57] LABS: Hematocrit 33.7 % (34.1-44.9); Hemoglobin 10.9 g/dL (11.2-15.7); Mean Cell Volume 99.1 fL (80.0-100.0); Mean Corpuscular HGB Conc 32.3 g/dL (31.0-36.0); Mean Platelet Volume 11.4 fL (8.8-12.5); Platelet Count 198 K/mcL (140-440); Red Cell Distribution Width 13.4 % (11.5-14.5); WBC 8.2 K/mcL (4.5-11.0)
[2022-08-16] MEDS ORDERED: PANTOPRAZOLE 40 MG VIAL IV SCH (07:30)
[2022-08-16] MEDS: INSULIN LISPRO 1 UNIT/0.01 ML UNIT SQ SCH (07:51)
[2022-08-16] MEDS: LEVOTHYROXINE 25 MCG TABLET PO SCH (07:51)
[2022-08-16 08:18] LABS: Basophils % (Manual) 3 % (0-2); Eosinophils % (Manual) 2 % (0-7); Hypochromasia 1+ (None Seen); Lymphocytes % 33 % (15-49); Monocytes % (Manual) 8 % (1-12); Platelet Estimate NORMAL (Normal); RBC Morphology ABNORMAL (Normal); Segmented Neutrophils % 54 % (38-78)
--- NOTE | 2022-08-16 08:50 | EKG ---
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
[2022-08-16] MEDS: THIAMINE 100 MG in 0.9 % SODIUM CHLORIDE 50 ML IV SCH (08:52)
[2022-08-16] MEDS: DOCUSATE SODIUM 100 MG CAPSULE PO SCH ×2 (08:53)
[2022-08-16] MEDS: ENOXAPARIN 40 MG/0.4 ML SYRINGE SQ SCH (08:56)
[2022-08-16] MEDS: MULTIVIT,THER IRON,CA,FA & MIN 1 TABLET PO SCH (08:57)
[2022-08-16] MEDS: FOLIC ACID 1 MG TABLET PO SCH (08:57)
[2022-08-16] MEDS ORDERED: PREGABALIN 100 MG CAPSULE PO SCH (09:00)
== END 2022-08-16 10:28 | disposition home or self-care (01) ==
LOC: ICU 18:42 → ED 18:42 → ICU 08-15 01:28
PROVIDERS: ADMIT Internal Medicine; ATTEND Internal Medicine